=== PATIENT | female | born 1940 | race Caucasian/White ===

== ENCOUNTER 2018-02-22 11:38 | Outpatient (RCR) | payer MEDICARE, BC ==
[~2018-02-22 11:38] MED LIST: ASPIR 8181 MG PO; CREON DR 6,000 U1 EA PO; CRESTOR10 MG PO; DIOVAN80 MG PO; FUROSEMIDE40 MG PO; PLAVIX75 MG PO
== END 2018-02-28 ==
LOC: WCC 11:38
PROVIDERS: ATTEND Family Medicine Adult Medicine
DX: S81.801A Unspecified open wound, right lower leg, initial encounter (principal); R60.0 Localized edema; I87.2 Venous insufficiency (chronic) (peripheral); I73.89 Other specified peripheral vascular diseases; I50.9 Heart failure, unspecified; J43.9 Emphysema, unspecified; K86.89 Other specified diseases of pancreas; W54.8XXA Other contact with dog, initial encounter

== ENCOUNTER 2018-03-29 12:48 | Outpatient (RCR) | payer MEDICARE, BC ==
[~2018-03-29 12:48] MED LIST changes: +LIDOCAINE/PRILOCAINE 2.5-2.5% KIT ONE; +MINERAL OIL/PETROLAT/GLYCERI 6OZ BTL ONE
[2018-03-29] MEDS ORDERED: MINERAL OIL/PETROLAT/GLYCERI 6OZ BTL ONE (13:27)
[2018-03-29] MEDS ORDERED: LIDOCAINE/PRILOCAINE 2.5-2.5% KIT ONE (13:27)
== END 2018-03-30 ==
LOC: WCC 12:48
PROVIDERS: ATTEND Family Medicine Adult Medicine
DX: S81.801A Unspecified open wound, right lower leg, initial encounter (principal); I73.89 Other specified peripheral vascular diseases; I87.2 Venous insufficiency (chronic) (peripheral); R60.0 Localized edema; I50.9 Heart failure, unspecified; J43.9 Emphysema, unspecified; K86.89 Other specified diseases of pancreas; W54.8XXA Other contact with dog, initial encounter
CPT/HCPCS: 87071; 87075; 87205

== ENCOUNTER 2018-04-19 10:16 | Outpatient (RCR) | payer MEDICARE, BC ==
[~2018-04-19 10:16] MED LIST changes: -LIDOCAINE/PRILOCAINE 2.5-2.5% KIT ONE; -MINERAL OIL/PETROLAT/GLYCERI 6OZ BTL ONE
[2018-04-30] MEDS ORDERED: PREDNISONE20 MG PO (02:18)
[2018-04-30] MEDS ORDERED: PROAIR HFA INH8.5 GM INH (02:18)
[2018-04-30] MEDS ORDERED: BROMFED DM COU118 ML PO (02:18)
[2018-04-30] MEDS ORDERED: PEPCID20 MG PO (02:18)
== END 2018-04-30 ==
LOC: WCC 10:16
PROVIDERS: ATTEND Family Medicine Adult Medicine
DX: I87.2 Venous insufficiency (chronic) (peripheral) (principal); W54.8XXA Other contact with dog, initial encounter; I73.89 Other specified peripheral vascular diseases; I50.9 Heart failure, unspecified; J43.9 Emphysema, unspecified; K86.89 Other specified diseases of pancreas

== ENCOUNTER 2018-04-30 00:53 | Emergency (ER) | payer MEDICARE, BC ==
[~2018-04-30] VITALS: Ht 157.5 cm; Wt 43.5 kg
--- OUTSIDE RECORDS SUMMARY | 2018-04-30 00:56 | XMS REPORT | Clinical Summary ---
Author Author [facility] Organization [facility] Address Unknown Phone Unavailable Care Team Providers Care Document Preparation Specialist Name Role Phone Jaqueline Mata MD PCP Allergies Comments Active Allergy Reactions Severity Noted Date Ciprofloxacin Anaphylaxis High 06/29/2016 Codeine Swelling 06/29/2016 Penicillins Shortness Of High 06/29/2016 Breath Sulfa (Sulfonamide Anaphylaxis High 06/29/2016 Antibiotics) Medications End Date Status Medication Sig Dispensed Refills Start Date Active clopidogrel (PLAVIX) 75 0 mg tablet 6 Active CRESTOR 10 mg tablet 0 6 Active aspirin (ECOTRIN) 81 MG Take 81 mg by 0 enteric coated tablet mouth daily. Active carvedilol (COREG) 3.125 TK 1 T PO BID 6 MG tablet 7 Active sacubitril-valsartan Take 1 tablet 0 (ENTRESTO) 24-26 mg by mouth 2 tablet per tablet (two) times a day. Active traMADol-acetaminophen Take 1 tablet 0 (ULTRACET) 37.5-325 mg by mouth per tablet every 8 (eight) hours as needed for moderate pain. Active ondansetron ODT DIS 1 T PO Q 3 (ZOFRAN-ODT) 8 MG 8 H PRN N 7 disintegrating tablet 01/06/2018 capecitabine (XELODA) 500 Take 3 150 tablet 0 mg chemo tablet tablets in 7 the morning and 2 tablets every evening Monday thru Monday x 6 weeks. 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 03/19/2018 Encounters Care Team Description Date Type Specialty Conrado Cortes MD Malignant neoplasm of body of pancreas (HCC) (Primary Dx) 04/12/2018 Nurse Only Oncology Conrado Cortes MD Malignant neoplasm of pancreas, unspecified location of malignancy (HCC) 03/19/2018 Lab Lab Conrado Cortes MD Malignant neoplasm of body of pancreas (HCC) (Primary Dx); Renal mass 03/19/2018 Office Visit Oncology Que Hernández MD 03/19/2018 [facility] Radiation Oncology - Encounter 03/20/2018 Dyana Guerrero MA Malignant neoplasm of pancreas, unspecified location of malignancy (HCC) (Primary Dx) 03/19/2018 Orders Only Oncology Asha Lee PA-C Malignant neoplasm of body of pancreas (HCC) (Primary Dx) 03/19/2018 Orders Only Radiation Oncology Conrado Cortes MD Malignant neoplasm of body of pancreas (HCC) (Primary Dx) 03/16/2018 Nurse Only Oncology Que Hernández MD Malignant neoplasm of body of pancreas (HCC) 03/16/2018 Hospital Radiology Encounter Conrado Cortes MD Malignant neoplasm of body of pancreas (HCC) (Primary Dx) 02/08/2018 Nurse Only Oncology Zahraa Mishra RN 01/25/2018 Telephone Oncology Conrado Cortes MD Malignant neoplasm of body of pancreas (Primary Dx) 01/11/2018 Nurse Only Oncology Gabriella Matias RPH 01/10/2018 Orders Only Oncology Conrado Cortes MD 12/27/2017 Telephone Oncology Conrado Cortes MD 12/25/2017 Telephone Oncology Zahraa Mishra RN Malignant neoplasm of body of pancreas (Primary Dx) 12/15/2017 Telephone Oncology Conrado Cortes MD Malignant neoplasm of body of pancreas (Primary Dx) 12/11/2017 Nurse Only Oncology Conrado Cortes MD Malignant neoplasm of body of pancreas (Primary Dx) 10/30/2017 Nurse Only Oncology Conrado Cortes MD Malignant neoplasm of pancreas, unspecified location of malignancy 10/20/2017 Lab Lab Conrado Cortes MD Malignant neoplasm of body of pancreas (Primary Dx); Reactive depression 10/20/2017 Office Visit Oncology Dyana Guerrero MA Malignant neoplasm of pancreas, unspecified location of malignancy (Primary Dx) 10/20/2017 Orders Only Oncology Que Hernández MD 10/11/2017 Hospital Radiation Oncology Encounter Conrado Cortes MD Malignant neoplasm of pancreas, unspecified location of malignancy 10/02/2017 Hospital Radiology Encounter Conrado Cortes MD Malignant neoplasm of body of pancreas (Primary Dx) 10/02/2017 Nurse Only Oncology Conrado Cortes MD Malignant neoplasm of body of pancreas (Primary Dx); Malignant neoplasm of pancreas, unspecified location of malignancy 09/05/2017 Nurse Only Oncology Conrado Cortes MD 07/26/2017 Telephone Oncology Conrado Cortes MD Malignant neoplasm of pancreas, unspecified location of malignancy 07/25/2017 Lab Lab Conrado Cortes MD Malignant neoplasm of body of pancreas (Primary Dx) 07/25/2017 Office Visit Oncology Dyana Guerrero MA Malignant neoplasm of pancreas, unspecified location of malignancy (Primary Dx) 07/25/2017 Orders Only Oncology Conrado Cortes MD Malignant neoplasm of pancreas, unspecified location of malignancy 07/24/2017 Hospital Radiology Encounter Milton Cortes MD Heyne, Kirk Edward, MD 07/24/2017 Nurse Only Oncology Conrado Cortes MD 06/28/2017 Telephone Oncology Conrado Cortes MD Malignant neoplasm of body of pancreas (Primary Dx) 06/14/2017 Infusion Oncology Conrado Cortes MD Malignant neoplasm of body of pancreas (Primary Dx) 05/31/2017 Infusion Oncology Conrado Cortes MD Malignant neoplasm of body of pancreas (Primary Dx); Flu 05/24/2017 Office Visit Oncology Dyana Guerrero MA Malignant neoplasm of pancreas, unspecified location of malignancy (Primary Dx) 05/24/2017 Orders Only Oncology Adan Figueroa RN 05/22/2017 Telephone Oncology Conrado Cortes MD Malignant neoplasm of body of pancreas 05/16/2017 Orders Only Oncology Conrado Cortes MD Malignant neoplasm of body of pancreas (Primary Dx) 05/03/2017 Infusion Oncology Asha Lee PA-C Malignant neoplasm of body of pancreas (Primary Dx) 05/03/2017 Orders Only Radiation Oncology Adan Figueroa RN 05/03/2017 Telephone Oncology Que Hernández MD 05/01/2017 Hospital Radiation Oncology Encounter after 04/29/2017 Family History Medical History Relation Name Comments Heart disease Father Heart disease Mother Relation Name Status Comments Father Mother Social History Date Tobacco Use Types Packs/Day Years Used Former Smoker Cigarettes Smokeless Tobacco: Never Used Alcohol Use Drinks/Week oz/Week Comments Yes occ Sex Assigned at Date Recorded Not on file Industry Job Start Date Occupation Not on file Not on file Not on file Travel End Travel History Travel Start No recent travel history available. Last Filed Vital Signs Time Taken Vital Sign Reading 04/12/2018 10:26 AM [employer] Blood Pressure 91/54 04/12/2018 10:26 AM [employer] Pulse 84 04/12/2018 10:26 AM [employer] Temperature 36.1 C (96.9 F) 04/12/2018 10:26 AM [employer] Respiratory Rate 20 04/12/2018 10:26 AM [employer] Oxygen Saturation 93% - Inhaled Oxygen - Concentration 04/12/2018 10:26 AM [employer] Weight 44 kg (97 lb 0 oz) 04/12/2018 10:26 AM [employer] Height 157.5 cm (5' 2") 04/12/2018 10:26 AM [employer] Body Mass Index 17.74 Plan of Treatment Care Team Description Date Type Specialty Conrado Cortes MD [address] [address] [place], [place] [id number] 05/10/2018 Nurse Only Oncology Conrado Cortes MD [address] [facility] [address] [place] [address] [phone] 07/17/2018 Office Visit Oncology Health Maintenance Due Date Last Done Comments SHINGLES VACCINES (1 of 1988 2) PNEUMOCOCCAL 12/21/2003 POLYSACCHARIDE VACCINE AGE 65 AND OVER PNEUMOCOCCAL-13 12/21/2003 INFLUENZA VACCINE 11/29/2017 03/05/2007 Implants Device Identifier Shelf Expiration Date Model / Serial / Lot Implanted Type Area Manufactur er 08/29/2019 [id number] / / [id number] Port Imlpntbl Smart Port W/ Dtchd Implantabl N/A: N/A ANGIODYNAM 0.4ml 6.6fr 55cm 1.4x2.2mm - e Infusion [employer] [id number] Ports or Implanted: 10/17/2016 (Quantity not Accessorie on file) s Procedures Comments Procedure Name Priority Date/Time Associated Diagnosis ESTIMATED GFR STAT 03/19/2018 1:47 PM [employer] CARCINOEMBRYONIC ANTIGEN STAT 03/19/2018 Malignant neoplasm of (CEA) 1:47 PM [employer] pancreas, unspecified location of malignancy (HCC) CANCER ANTIGEN 19-9 STAT 03/19/2018 Malignant neoplasm of 1:47 PM [employer] pancreas, unspecified location of malignancy (HCC) COMPREHENSIVE METABOLIC STAT 03/19/2018 Malignant neoplasm of PANEL 1:47 PM [employer] pancreas, unspecified location of malignancy (HCC) HC COMPLETE BLD COUNT STAT 03/19/2018 Malignant neoplasm of W/AUTO DIFF 1:47 PM [employer] pancreas, unspecified location of malignancy (HCC) CT ABDOMEN WWO CONTRAST Routine 03/16/2018 Malignant neoplasm of PELVIS W CONTRAST 10:32 AM [employer] body of pancreas (HCC) ESTIMATED GFR Routine 03/16/2018 9:42 AM [employer] POC CREATININE Routine 03/16/2018 9:42 AM [employer] ZZESTIMATED GFR STAT 10/20/2017 12:45 PM CDT CANCER ANTIGEN 19-9 STAT 10/20/2017 Malignant neoplasm of 12:45 PM CDT pancreas, unspecified location of malignancy COMPREHENSIVE METABOLIC STAT 10/20/2017 Malignant neoplasm of PANEL 12:45 PM CDT pancreas, unspecified location of malignancy HC COMPLETE BLD COUNT STAT 10/20/2017 Malignant neoplasm of W/AUTO DIFF 12:45 PM CDT pancreas, unspecified location of malignancy CT ABDOMEN PELVIS W Routine 10/02/2017 Malignant neoplasm of CONTRAST 12:11 PM CDT pancreas, unspecified location of malignancy ESTIMATED GFR Routine 10/02/2017 10:59 AM CDT POC CREATININE Routine 10/02/2017 10:59 AM CDT ZZESTIMATED GFR STAT 07/25/2017 2:05 PM CDT COMPREHENSIVE METABOLIC STAT 07/25/2017 Malignant neoplasm of PANEL 2:05 PM CDT pancreas, unspecified location of malignancy HC COMPLETE BLD COUNT STAT 07/25/2017 Malignant neoplasm of W/AUTO DIFF 2:05 PM CDT pancreas, unspecified location of malignancy CT ABDOMEN PELVIS W STAT 07/24/2017 Malignant neoplasm of CONTRAST 11:52 AM CDT pancreas, unspecified location of malignancy ESTIMATED GFR Routine 07/24/2017 10:59 AM CDT POC CREATININE Routine 07/24/2017 10:59 AM CDT ZZESTIMATED GFR STAT 06/14/2017 8:18 AM [employer] MAGNESIUM LEVEL STAT 06/14/2017 Malignant neoplasm of 8:18 AM [employer] body of pancreas COMPREHENSIVE METABOLIC STAT 06/14/2017 Malignant neoplasm of PANEL 8:18 AM [employer] body of pancreas HC COMPLETE BLD COUNT STAT 06/14/2017 Malignant neoplasm of W/AUTO DIFF 8:18 AM [employer] body of pancreas POTASSIUM LEVEL Routine 05/31/2017 9:30 AM [employer] ALKALINE PHOSPHATASE Routine 05/31/2017 9:30 AM [employer] ALT (SGPT) Routine 05/31/2017 9:30 AM [employer] AST (SGOT) Routine 05/31/2017 9:30 AM [employer] ZZESTIMATED GFR STAT 05/31/2017 7:12 AM [employer] MAGNESIUM LEVEL STAT 05/31/2017 Malignant neoplasm of 7:12 AM [employer] body of pancreas COMPREHENSIVE METABOLIC STAT 05/31/2017 Malignant neoplasm of PANEL 7:12 AM [employer] body of pancreas HC COMPLETE BLD COUNT STAT 05/31/2017 Malignant neoplasm of W/AUTO DIFF 7:12 AM [employer] body of pancreas ZZESTIMATED GFR STAT 05/03/2017 8:14 AM [employer] MAGNESIUM LEVEL STAT 05/03/2017 Malignant neoplasm of 8:14 AM [employer] body of pancreas COMPREHENSIVE METABOLIC STAT 05/03/2017 Malignant neoplasm of PANEL 8:14 AM [employer] body of pancreas HC COMPLETE BLD COUNT STAT 05/03/2017 Malignant neoplasm of W/AUTO DIFF 8:14 AM [employer] body of pancreas after 04/29/2017 Results * Estimated GFR (03/19/2018 1:47 PM [employer]) Only the most recent of 4 results within the time period is included. Estimated GFR 85 mL/min/1.73 m2 [facility] Comment: HOSPITAL CatergoryUnitsInte rpretation G1 >=90 Normal or high G2 60-89Mildly decreased Y5h86-65 Mildly to moderately decreased Y5m60-48 Moderately to severely decreased G4 15-29Severely decreased G5 <15Kidney failure The eGFR was calculated using the Chronic Kidney Disease Epidemiology Collaboration (CKD-EPI) equation. Interpretation is based on recommendations of the National Kidney Foundation-Kidney Disease Outcomes Quality Initiative (NKF-KDOQI) published in 2014. Specimen Plasma specimen Performing Organization Address City/[facility]/Zipcode Phone Number [facility] [place] [address] PATHOLOGY AND GENOMIC MEDICINE [address] * Cancer antigen 19-9 (03/19/2018 1:47 PM [employer]EL[employer]) Only the most recent of 2 results within the time period is included. CA 19-9 25 0 - 35 U/mL [facility] Comment: HOSPITAL The [employer] 8000 CA19-9 immunoassay was used. Results obtained with different assay methods or kits should not be used interchangeably and may be different. Specimen Plasma specimen Performing Organization Address City/[facility] Phone Number [facility] [place] [address] PATHOLOGY AND GENOMIC MEDICINE [address] * CBC with platelet and differential (03/19/2018 1:47 PM [employer]EL[employer]) Only the most recent of 6 results within the time period is included. WBC 6.49 4.50 - 11.00 k/uL [facility] RBC 4.12 (L) 4.20 - 5.50 m/uL [facility] HGB 13.0 12.0 - 16.0 g/dL [facility] HCT 40.8 37.0 - 47.0 % [facility] MCV 99.0 82.0 - 100.0 fL [facility] MCH 31.6 27.0 - 34.0 pg [facility] MCHC 31.9 31.0 - 37.0 g/dL [facility] RDW - SD 54.5 37.0 - 55.0 fL [facility] MPV 10.6 8.8 - 13.2 fL [facility] Platelet count 197 150 - 400 k/uL [facility] Nucleated RBC 0.00 /100 WBC [facility] Neutrophils 66.2 39.0 - 69.0 % [facility] Lymphocytes 21.9 (L) 25.0 - 45.0 % [facility] Monocytes 9.4 0.0 - 10.0 % [facility] Eosinophils 1.7 0.0 - 5.0 % [facility] Basophils 0.3 0.0 - 1.0 % [facility] Immature granulocytes 0.5Comment: "Immature 0.0 - 1.0 % [facility] granulocytes" (promyelocytes, HOSPITAL myelocytes, metamyelocytes) Specimen Blood Performing Organization Address City/[facility] Phone Number [facility] DEPARTMENT OF [address] [place] [address] PATHOLOGY AND GENOMIC MEDICINE [address] * Carcinoembryonic antigen (CEA) (03/19/2018 1:47 PM [employer]) CEA 3.0 0.0 - 3.8 ng/mL [facility] Comment: HOSPITAL Reference range for heavy smokers:0.0 - 5.5 ng/mL The [employer] 8000 CEA immunoassay was used. Results obtained with different assay methods or kits should not be used interchangeably and may be different. Specimen Serum Performing Organization Address [facility] [place] [address] PATHOLOGY AND GENOMIC MEDICINE [address] * Comprehensive metabolic panel (03/19/2018 1:47 PM [employer]) Only the most recent of 6 results within the time period is included. Sodium 145 135 - 148 mEq/L [facility] Potassium 4.3 3.5 - 5.0 mEq/L [facility] Chloride 109 98 - 112 mEq/L [facility] CO2 24 24 - 31 mEq/L [facility] Anion gap 12@ANIO 7 - 15 mEq/L [facility] BUN 21 8 - 23 mg/dL [facility] Creatinine 0.63 0.50 - 0.90 mg/dL [facility] Glucose 213 (H) 65 - 99 mg/dL [facility] Calcium 10.0 8.8 - 10.2 mg/dL [facility] Protein 6.4 6.3 - 8.3 g/dL [facility] Comment: HOSPITAL 4.6-7.0 g/dL 1 week 4.4-7.6 g/dL 7 months-1year 5.1-7.3 g/dL 1-2 years5.6-7 .5 g/dL >3 years6.0-8 .0 g/dL 18-150 6.3-8.3 g/dL Albumin 3.3 (L) 3.5 - 5.0 g/dL [facility] A/G ratio 1.1 0.7 - 3.8 [facility] Alkaline phosphatase 163 (H) 35 - 104 U/L [facility] AST 50 (H) 10 - 35 U/L [facility] ALT 40 5 - 50 U/L [facility] Total bilirubin 0.4 0.0 - 1.2 mg/dL [facility] Specimen Plasma specimen Performing Organization Address City/State/Zipcode Phone Number [facility] DEPARTMENT OF [address] [place] [address] PATHOLOGY AND GENOMIC MEDICINE [address] * CT Abdomen WWO Contrast, Pelvis W Contrast (03/16/2018 10:32 AM [employer]ELOPER) Narrative Performed At EXAMINATION:CT ABDOMEN WWO CONTRAST PELVIS W CONTRAST [facility] CLINICAL HISTORY:C25.1 Malignant neoplasm of body of pancreas, Pancreatic cancer S/P radiation and chemo TECHNIQUE: Noncontrast images of the abdomen were obtained. Subsequently, axial images of the abdomen and pelvis were obtained following intravenous administration of iodinated contrast. Sagittal and coronal computerized reformatted images were also obtained.CT imaging was performed with iterative reconstruction technique and/or automated exposure control to reduce radiation dose. COMPARISON:10/02/2017 FINDINGS: Abdomen: Bilateral lower lung emphysema is seen. There is a small hiatal hernia. There is cholelithiasis. The spleen is unremarkable. Adrenal glands are within normal limits. Small bilateral renal cysts are seen. The largest in the right kidney is 14 mm. The largest in the left kidney is 13 mm. There is also a 7 mm lesion in the left kidney. It is hyperdense on precontrast images but does appear to demonstrate at least 20 Hounsfield units increase on postcontrast imaging and may therefore be renal neoplasm. This may be better assessed with MRI. Alternatively, if no intervention is planned, recommend short-term follow-up. 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 A 5.3 x 2.8 cm water attenuation structure is seen in the region of the pancreatic tail which is unchanged. Just adjacent to this is heterogeneous enhancing mass-like density which is unchanged measuring 1.9 x 2.2 cm. A small water attenuation structure anterior to the pancreatic body is 15 mm and unchanged. Splenic vein is occluded. Pelvis: Bilateral common and external iliac stents are present. 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 Sigmoid diverticula are present. The bones are osteopenic. IMPRESSION: Emphysema. Small hiatal hernia. Cholelithiasis. Possible left renal neoplasm. MRI may better assess. If no intervention is planned, suggest CT follow-up to evaluate for stability. Stable pancreatic body mass. Splenic vein occlusion persisting. Peripancreatic cystic change is stable. Left pelvic varices. [facility]-[id number] Procedure Note [facility], Radiology Results Incoming - 03/16/2018 4:05 PM [employer] EXAMINATION: CT ABDOMEN WWO CONTRAST PELVIS W CONTRAST CLINICAL HISTORY: C25.1 Malignant neoplasm of body of pancreas, Pancreatic cancer S/P radiation and chemo TECHNIQUE: Noncontrast images of the abdomen were obtained. Subsequently, axial images of the abdomen and pelvis were obtained following intravenous administration of iodinated contrast. Sagittal and coronal computerized reformatted images were also obtained.CT imaging was performed with iterative reconstruction technique and/or automated exposure control to reduce radiation dose. COMPARISON: 10/02/2017 FINDINGS: Abdomen: Bilateral lower lung emphysema is seen. There is a small hiatal hernia. There is cholelithiasis. The spleen is unremarkable. Adrenal glands are within normal limits. Small bilateral renal cysts are seen. The largest in the right kidney is 14 mm. The largest in the left kidney is 13 mm. There is also a 7 mm lesion in the left kidney. It is hyperdense on precontrast images but does appear to demonstrate at least 20 Hounsfield units increase on postcontrast imaging and may therefore be renal neoplasm. This may be better assessed with MRI. Alternatively, if no intervention is planned, recommend short-term follow-up. 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 A 5.3 x 2.8 cm water attenuation structure is seen in the region of the pancreatic tail which is unchanged. Just adjacent to this is heterogeneous enhancing mass-like density which is unchanged measuring 1.9 x 2.2 cm. A small water attenuation structure anterior to the pancreatic body is 15 mm and unchanged. Splenic vein is occluded. Pelvis: Bilateral common and external iliac stents are present. 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 Sigmoid diverticula are present. The bones are osteopenic. IMPRESSION: Emphysema. Small hiatal hernia. Cholelithiasis. Possible left renal neoplasm. MRI may better assess. If no intervention is planned, suggest CT follow-up to evaluate for stability. Stable pancreatic body mass. Splenic vein occlusion persisting. Peripancreatic cystic change is stable. Left pelvic varices. [facility]-[id number] Performing Organization Address City/[facility]/[place]code [place] [address] * POC creatinine (03/16/2018 9:42 AM [employer]ELOPER) Only the most recent of 3 results within the time period is included. POC creatinine 0.5 0.5 - 0.9 mg/dl [facility] Comment: HOSPITAL Meter ID: [id number] Tube Buffer: Demarco Sherman Specimen Blood Performing Organization Address [facility] [place] [address] PATHOLOGY [place] [address] HOSPITAL * Estimated GFR (10/20/2017 12:45 PM CDT) Only the most recent of 5 results within the time period is included. GFR Non Af Amer 69 mL/min/1.73 m2 [facility] DEPARTMENT OF PATHOLOGY AND GENOMIC MEDICINE GFR Af Amer 84 mL/min/1.73 m2 [facility] DEPARTMENT OF Comment: PATHOLOGY AND Chronic kidney disease: <60 GENOMIC MEDICINE mL/min/1.73m2 Kidney failure: <15 mL/min/1.73m2 The estimated GFR is calculated from the IDMS-traceable Modification of Diet in Renal Disease Equation. The accuracy of the calculation is poor when the creatinine is normal. Calculated values >90 mL/min/1.73m2 are not reported. This equation has not been validated in children (<18 years), women, the elderly (>70 years), or ethnic groups other than Caucasians and Americans. Specimen Plasma specimen Performing Organization Address [facility] Phone Number [facility] [place] [address] PATHOLOGY AND GENOMIC MEDICINE * CT Abdomen Pelvis W Contrast (10/02/2017 12:11 PM CDT) Only the most recent of 2 results within the time period is included. Narrative Performed At CT ABDOMEN PELVIS W CONTRAST [facility] CLINICAL INDICATION: C25.9 Malignant neoplasm of pancreasunspecified, pancreatic cancer TECHNIQUE:Multidetector CT imaging of the abdomen and pelvis was performed following the intravenous administration of iodinated contrast with automated exposure control and/or iterative reconstruction techniques to radiation dose. COMPARISON:07/24/2017 FINDINGS: LUNG BASES:Moderate emphysema is noted at the lung bases with basilar atelectasis and Bochdalek hernia. LIVER:Liver is homogeneous without mass or change BILIARY:Normal. SPLEEN:Normal. PANCREAS:Pancreatic head and neck are stable with 2 pseudocysts again noted with stable 1.4 x 1.8 cm cyst anterior to the body and a 2.8 x 5.7 cm pseudocyst without nodularity or thickening involving the body tail region, this finding diminished from 3.0 x 7.6 cm on prior. There is a stable area of heterogeneous lower attenuation in the pancreatic body about 1.4 x 1.7 cm unchanged with slight dilatation of the upstream pancreatic duct concerning for underlying neoplasm given prior PET positivity. There is again soft tissue that encircles the common hepatic artery by about 75%. [facility] mesenteric artery and vein are unremarkable. ADRENALS:Normal KIDNEYS:Too small to characterize probable cysts noted in the kidneys are without suspicious mass or enhancement. GI:Large and small bowel are normal in caliber.Sigmoid diverticula are present without diverticulitis. VASCULAR:Atherosclerosis of the aorta is present. IVC portal veins are patent noting soft tissue about the common hepatic artery as before. LYMPH NODES:No enlarged lymph nodes in the abdomen or pelvis. PELVIS:No lymphadenopathy or abnormal fluid collection. BONES:Mild degenerative changes and scoliosis. OTHER:There is no ascites. IMPRESSION: Stable CT of the pancreas noting 1.4 x 1.7 cm hypoattenuating area with ductal dilatation concerning for neoplasm given prior PET/CT avidity. No interval change or findings for metastatic disease. Thank you for allowing us to participate in the care of your patient. [facility]-[id number] Procedure Note Interface, Radiology Results - 10/02/2017 12:[address] ABDOMEN PELVIS W CONTRAST CLINICAL INDICATION: C25.9 Malignant neoplasm of pancreas unspecified, pancreatic cancer TECHNIQUE: Multidetector CT imaging of the abdomen and pelvis was performed following the intravenous administration of iodinated contrast with automated exposure control and/or iterative reconstruction techniques to radiation dose. COMPARISON: 07/24/2017 FINDINGS: LUNG BASES: Moderate emphysema is noted at the lung bases with basilar atelectasis and Bochdalek hernia. LIVER: Liver is homogeneous without mass or change BILIARY: Normal. SPLEEN: Normal. PANCREAS: Pancreatic head and neck are stable with 2 pseudocysts again noted with stable 1.4 x 1.8 cm cyst anterior to the body and a 2.8 x 5.7 cm pseudocyst without nodularity or thickening involving the body tail region, this finding diminished from 3.0 x 7.6 cm on prior. There is a stable area of heterogeneous lower attenuation in the pancreatic body about 1.4 x 1.7 cm unchanged with slight dilatation of the upstream pancreatic duct concerning for underlying neoplasm given prior PET positivity. There is again soft tissue that encircles the common hepatic artery by about 75%. Superior mesenteric artery and vein are unremarkable. ADRENALS: Normal KIDNEYS: Too small to characterize probable cysts noted in the kidneys are without suspicious mass or enhancement. GI: Large and small bowel are normal in caliber. Sigmoid diverticula are present without diverticulitis. VASCULAR: Atherosclerosis of the aorta is present. IVC portal veins are patent noting soft tissue about the common hepatic artery as before. LYMPH NODES: No enlarged lymph nodes in the abdomen or pelvis. PELVIS: No lymphadenopathy or abnormal fluid collection. BONES: Mild degenerative changes and scoliosis. OTHER: There is no ascites. IMPRESSION: Stable CT of the pancreas noting 1.4 x 1.7 cm hypoattenuating area with ductal dilatation concerning for neoplasm given prior PET/CT avidity. No interval change or findings for metastatic disease. Thank you for allowing us to participate in the care of your patient. [facility]-[id number] Performing Organization Address City/[facility]/Zipcode Phone Number [facility] [address] [place] [address] * Magnesium level (06/14/2017 8:18 AM JAVA GROOVY DEVELOPER) Only the most recent of 3 results within the time period is included. Magnesium 2.1 1.6 - 2.4 mg/dL [facility] DEPARTMENT OF PATHOLOGY AND GENOMIC MEDICINE Specimen Plasma specimen Performing Organization Address City/[facility] Phone [facility] [address] [address] PATHOLOGY AND GENOMIC MEDICINE * ALT (SGPT) (05/31/2017 9:30 AM JAVA GROOVY DEVELOPER) ALT SEE COMMENTComment: 5 - 50 U/L [facility] DEPARTMENT OF Footnote--------- PATHOLOGY AND GENOMIC MEDICINE Specimen Plasma specimen Performing Organization Address [facility] Phone Number [facility] [place] [address] PATHOLOGY AND GENOMIC MEDICINE * AST (SGOT) (05/31/2017 9:30 AM JAVA GROOVY DEVELOPER) AST SEE COMMENTComment: 10 - 35 U/L [facility] DEPARTMENT OF Footnote--------- PATHOLOGY AND GENOMIC MEDICINE Specimen Plasma specimen Performing Organization Address [facility] Phone Number [facility] [place] [address] PATHOLOGY AND GENOMIC MEDICINE * Potassium level (05/31/2017 9:30 AM JAVA GROOVY DEVELOPER) Potassium SEE COMMENT 3.5 - 5.0 mEq/L [facility] DEPARTMENT OF Comment: PATHOLOGY AND Footnote--------- GENOMIC MEDICINE UNABLE TO REPORT DUE TO SPECIMEN HEMOLYSIS. Specimen Plasma specimen Performing Organization Address [facility] Phone Number [facility] [place] [address] PATHOLOGY AND GENOMIC MEDICINE * Alkaline phosphatase (05/31/2017 9:30 AM JAVA GROOVY DEVELOPER) Alkaline phosphatase SEE COMMENTComment: 35 - 104 U/L [facility] DEPARTMENT OF Footnote--------- PATHOLOGY AND GENOMIC MEDICINE Specimen Plasma specimen Performing Organization Address [facility] [place] Phone Number [facility] [place] [address] PATHOLOGY AND GENOMIC MEDICINE after 04/29/2017 Insurance Payer Benefit Subscriber ID Type Phone Address Plan / Group MEDICARE MEDICARE xxxxxxxxxxx Medicare [place], [place] PART A AND B BCBS BCBS xxxxxxxxxxxx PPO CHOICE PPO/[employer]ETSY [employer] PPO Advance Directives For more information, please contact: Shin Deal [address] [place] [address] Date Inactivated Comments Code Status Date Activated 09/25/2016 6:35 PM Full Code 09/23/2016 2:29 PM Code Status decision reached by: Patient
[2018-04-30] MEDS ORDERED: ALBUTEROL/IPRATROPIUM 3 ML NEB INH ONE (02:00)
[2018-04-30] MEDS ORDERED: PEPCID20 MG PO (02:18)
[2018-04-30] MEDS ORDERED: BROMFED DM COU118 ML PO (02:18)
[2018-04-30] MEDS ORDERED: PREDNISONE20 MG PO (02:18)
[2018-04-30] MEDS ORDERED: PROAIR HFA INH8.5 GM INH (02:18)
== END 2018-04-30 02:31 | disposition home or self-care (01) ==
LOC: FSED 00:53
DX: R05 Cough (principal); H92.03 Otalgia, bilateral; J44.1 Chronic obstructive pulmonary disease with (acute) exacerbation; B34.9 Viral infection, unspecified; J20.9 Acute bronchitis, unspecified
CPT/HCPCS: 87400; 99283

== ENCOUNTER 2019-06-29 15:58 | Emergency (ER) | payer MEDICARE, BC ==
[~2019-06-29] VITALS: Ht 157.5 cm; Wt 38.6 kg
[~2019-06-29 15:58] MED LIST changes: +BROMFED DM COU118 ML PO; +LEVAQUIN500 MG PO; +PEPCID20 MG PO; +PREDNISONE20 MG PO; +PROAIR HFA INH8.5 GM INH
--- OUTSIDE RECORDS SUMMARY | 2019-06-29 16:00 | XMS REPORT ---
Author Author [facility] Address Unknown Phone Unavailable Care Team Providers Care Mixing Picker Tender Name Role Phone Praneeth ROSAS Unavailable Unavailable Problems This patient has no known problems. Allergies, Adverse Reactions, Alerts This patient has no known allergies or adverse reactions. Medications This patient has no known medications. Results Test Description Test Time Test Comments Text Results Atomic Results Result Comments CXR 2 VIEW - HOPD 2019-05-06 19:44:[address] [address] Patient Name: LUNA PARDO MR #: [id number] : 1940 Age/Sex: 78/F Req #: [id number] Adm Physician: Ordered by: JORDY ROSAS MD Report #: [id number] [facility] Room/Bed: Procedure: [id number] HOPD/CXR 2 VIEW - HOPD Exam Date: 05/06/19 Exam Time: 1919 REPORT STATUS: Signed EXAMINATION: CXR 2 VIEW - HOPD INDICATION: Cough and congestion. [id number] COMPARISON: None available. FINDINGS: PA and lateral views TUBES and LINES: Right chest wall port in place. Tip projecting over inferior SVC. LUNGS: Hyperinflated lungs. Mild bibasilar haziness. PLEURA: No pneumothorax. Small bilateral pleural effusions. HEART AND MEDIASTINUM: The cardiomediastinal silhouette is unremarkable. BONES AND SOFT TISSUES: No acute osseous lesion. Soft tissues are unremarkable. UPPER ABDOMEN: No free air under the diaphragm. IMPRESSION: Small bilateral pleural effusions with mild adjacent subsegmental atelectasis. Underlying/developing pneumonia cannot be excluded. Signed by: Dr. Bernardino Maldonado MD on 05/06/2019 7:46 PM Dictated By: BERNARDINO MALDONADO MD 43 Transcribed By: BRETT on 05/06/191945 COPY TO: JORDY ROSAS MD
[2019-06-29] MEDS ORDERED: SODIUM CHLORIDE 0.9% 1000ML 1,000 ML ONE (16:22)
[2019-06-29] MEDS ORDERED: DIPHENHYDRAMINE HCL INJ 50 MG/ML VIAL IV ONE (16:45)
[2019-06-29] MEDS ORDERED: METOCLOPRAMIDE HCL 10 MG/2ML VIAL IV ONE (16:45)
[2019-06-29] MEDS ORDERED: SODIUM CHLORIDE 0.9% 500ML 500 ML IV ONE (18:00)
[2019-06-29] MEDS ORDERED: SODIUM CHLORIDE 0.9% 500ML 500 ML ONE (18:00)
[2019-06-29] MEDS ORDERED: TRAMADOL HCL 50 MG TAB ONE (18:19)
[2019-06-29] MEDS ORDERED: REGLAN10 MG PO (18:30)
[2019-06-29] MEDS ORDERED: TRAMADOL HCL 50 MG TAB PO ONE (18:30)
== END 2019-06-29 18:39 | disposition home or self-care (01) ==
LOC: FSED 15:58
DX: R11.2 Nausea with vomiting, unspecified (principal); K52.9 Noninfective gastroenteritis and colitis, unspecified; E86.0 Dehydration; I10 Essential (primary) hypertension; I51.9 Heart disease, unspecified; J98.4 Other disorders of lung; Z85.07 Personal history of malignant neoplasm of pancreas
CPT/HCPCS: 80048; 80076; 81003; 82553; 84484; 85025; 93005; 99284; J1200; J2765; J7030; J7040

== ENCOUNTER 2019-07-03 10:39 | Emergency (ER) | payer MEDICARE, BC ==
[~2019-07-03] VITALS: Ht 157.5 cm; Wt 38.6 kg
[~2019-07-03 10:39] MED LIST changes: +REGLAN10 MG PO
[2019-07-03] MEDS ORDERED: SODIUM CHLORIDE 0.9% 1000ML 1,000 ML IV SCH (11:30)
[2019-07-03] MEDS ORDERED: PROMETHAZINE 25MG/ NS 50ML (IV) IV ONE (11:30)
[2019-07-03] MEDS ORDERED: SODIUM CHLORIDE 0.9% 500ML 500 ML IV ONE ×2 (11:30→13:30)
[2019-07-03] MEDS ORDERED: MORPHINE SULFATE 5 MG/ML VIAL IV ONE (11:30)
[2019-07-03] MEDS ORDERED: PROMETHAZINE HCL (IM) 25 MG/ML VIAL ONE (11:45)
[2019-07-03] MEDS ORDERED: MORPHINE SULFATE INJ 4 MG/ML INJ 1ML ONE (11:46)
[2019-07-03] MEDS ORDERED: SODIUM CHLORIDE 0.9% 500ML 500 ML ONE ×2 (11:46→13:21)
--- NOTE | 2019-07-03 11:50 | NUR ---
25 MG PHENERGAN DILUTED IN 500ML NS
--- NOTE | 2019-07-03 12:39 | NUR ---
WHITE COUNT 1.1, MASK PLACED ON PT.
[2019-07-03 15:57] VITALS: BP 110/62
== END 2019-07-03 14:46 | disposition home or self-care (01) ==
LOC: FSED 10:39
DX: R10.84 Generalized abdominal pain (principal); R11.2 Nausea with vomiting, unspecified; E86.0 Dehydration; C25.9 Malignant neoplasm of pancreas, unspecified
CPT/HCPCS: 80053; 81003; 82553; 84484; 85025; 87086; 99283; J2270; J2550; J7030; J7040

== ENCOUNTER 2019-07-05 20:50 | Emergency (ER) | payer MEDICARE, BC ==
[~2019-07-05] VITALS: Ht 157.5 cm; Wt 38.6 kg
--- NOTE | 2019-07-05 20:55 | NUR ---
pt refused to get in gown, stated she wanted to stay in her clothes. pt also stated she does not want to be admitted into the hospital.
[2019-07-05] MEDS ORDERED: ONDANSETRON HCL INJ 2MG/ML 2ML 2 MG/ML VIAL IV STA (21:35)
[2019-07-05] MEDS ORDERED: SODIUM CHLORIDE 0.9% 1000ML 1,000 ML IV STA ×2 (21:37→23:07)
[2019-07-05] MEDS ORDERED: MORPHINE SULFATE INJ 4 MG/ML INJ 1ML IV ONE (21:45)
[2019-07-05] MEDS ORDERED: ONDANSETRON HCL INJ 2MG/ML 2ML 2 MG/ML VIAL ONE (22:07)
[2019-07-05] MEDS ORDERED: SODIUM CHLORIDE 0.9% 1000ML 1,000 ML ONE ×2 (22:08→23:14)
[2019-07-05] MEDS ORDERED: MORPHINE SULFATE INJ 4 MG/ML INJ 1ML ONE (22:08)
[2019-07-05] MEDS ORDERED: LEVSIN0.125 MG SL (23:38)
[2019-07-05 23:48] VITALS: BP 84/43
--- NOTE | 2019-07-06 00:10 | NUR ---
INFORMED MD OF PT'S CHANGE IN V/S. MD IN TO RE-EVAL. PT..
--- NOTE | 2019-07-06 00:35 | NUR ---
After multi checks for Blood pressure it is consistant at 84/43 hr 71 and spo2 93%. pt refusing to be admitted, states she does not want to be in hospital. Family at bedside. Patient and Family given risk factors of going home with low blood pressure and signed out AMA, Pt and Daughter stated if patient gets worse that they would call a ambulance. Pt is alert and oriented to surroundings, Pt is alot more verbal and alert after recieving 2 litters of NS in ER.
== END 2019-07-06 00:43 | disposition home or self-care (01) ==
LOC: FSED 20:50
DX: R11.2 Nausea with vomiting, unspecified (principal); R53.1 Weakness; I10 Essential (primary) hypertension; E78.5 Hyperlipidemia, unspecified; J44.9 Chronic obstructive pulmonary disease, unspecified; I25.10 Atherosclerotic heart disease of native coronary artery without angina pectoris; I25.2 Old myocardial infarction; Z85.07 Personal history of malignant neoplasm of pancreas; Z95.5 Presence of coronary angioplasty implant and graft
CPT/HCPCS: 80053; 80076; 81003; 85025; 99283; J2270; J2405; J7030

== ENCOUNTER 2019-09-21 19:10 | Inpatient (IN) | payer MEDICARE, OTHER ==
[~2019-09-21] VITALS: Ht 157.5 cm; Wt 36.3 kg
[~2019-09-21 19:10] MED LIST changes: +LEVSIN0.125 MG SL
--- OUTSIDE RECORDS SUMMARY | 2019-09-21 19:13 | XMS REPORT | Clinical Summary ---
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 Active CRESTOR 10 mg tablet Take 10 mg by 0 mouth 6 nightly. Active aspirin (ECOTRIN) 81 MG Take 81 mg by 0 enteric coated tablet mouth nightly. Active acetaminophen (TYLENOL) Take 500 mg 0 500 MG tablet by mouth every 6 (six) hours as needed for mild pain. Active PROAIR HFA 90 Inhale 2 3 mcg/actuation inhaler puffs 6 (six) 9 times a day as needed for shortness of breath. Active hyoscyamine (LEVSIN) Take 0.125 mg 0 0.125 mg tablet by mouth every 4 (four) hours as needed for cramping. 08/14/2020 Active pantoprazole (Protonix) Take 1 tablet 90 tablet 3 40 MG EC tablet (40 mg total) 0 by mouth daily. 08/21/2020 Active potassium chloride Take 1 tablet 180 tablet 3 08/21 (KLOR-CON) 10 MEQ CR (10 mEq 0 tablet total) by mouth 2 (two) times a day. 09/01/2020 Active pancrelipase, Take 2 180 capsule 11 lsrbtk-kttsgtfv-dsowkqe, capsules by 0 (CREON) 6,000-19,000 mouth 3 -30,000 unit (three) times capsule,delayed a day with release(DR/EC) capsule meals. Active OLANZapine (ZYPREXA) 2.5 TAKE 1 4 tablet 0 0 MG tablet TABLET(2.5 0 MG) BY MOUTH EVERY NIGHT FOR UP TO 4 DAYS NEEDED FOR NAUSEA 10/22/2019 Active HYDROcodone-acetaminophen Take 1 tablet 100 tablet 0 (Thornton) 10-325 mg per by mouth 0 tabletIndications: every 4 chronic pain, pain (four) hours as needed for moderate pain for up to 100 doses .chronic pain, pain. Max Daily Amount: 6 tablets 07/12/2019 Discontinued (Stop Taking at Discharge) carvedilol (COREG) 3.125 Take 3.125 mg 6 09/05 MG tablet by mouth 7 every other day. 07/12/2019 Discontinued (Stop Taking at Discharge) sacubitril-valsartan Take 1 tablet 0 (ENTRESTO) 24-26 mg by mouth tablet per tablet every other day. 02/08/2019 Discontinued traMADol-acetaminophen Take 1 tablet 0 (ULTRACET) 37.5-325 mg by mouth per tablet every 8 (eight) hours as needed for moderate pain. 05/27/2019 Discontinued (Reorder) ondansetron ODT DIS 1 T PO Q 3 (ZOFRAN-ODT) 8 MG 8 H PRN N 7 disintegrating tablet 03/17/2019 traMADol (ULTRAM) 50 mg Take 2 30 tablet 0 tabletIndications: tablets (100 9 chronic pain mg total) by mouth every 8 (eight) hours as needed for moderate pain for up to 30 days .chronic pain. 03/25/2019 Discontinued (Therapy comple justin) HYDROcodone-acetaminophen Take 15 mL by 450 mL 0 (HYCET) 2.5-108.3 mg/5 mL mouth every 4 9 solutionIndications: (four) hours chronic pain as needed for moderate pain for up to 30 doses .chronic pain. Max Daily Amount: 90 mL 05/17/2019 hyoscyamine (LEVSIN/SL) Take 1 tablet 20 tablet 3 0.125 mg SL tablet (0.125 mg 9 total) by mouth every 4 (four) hours as needed for cramping (irritable bowel) for up to 30 days. 05/18/2019 diphenoxylate-atropine Take 1 tablet 10 tablet 0 1 (LOMOTIL) 2.5-0.025 mg by mouth 4 9 per tablet (four) times a day as needed for diarrhea for up to 10 doses. 04/19/2019 Discontinued (Reorder) HYDROcodone-acetaminophen Take 1 tablet 30 tablet 0 (NORCO) 5-325 mg per by mouth 9 tabletIndications: every 6 (six) chronic pain hours as needed for moderate pain for up to 30 days .chronic pain. Max Daily Amount: 4 tablets 04/19/2019 Discontinued (Reorder) HYDROcodone-acetaminophen Take 1 tablet 30 tablet 0 (NORCO) 5-325 mg per by mouth 9 tabletIndications: every 6 (six) chronic pain hours as needed for moderate pain for up to 30 days .chronic pain. Max Daily Amount: 4 tablets 04/19/2019 Discontinued HYDROcodone-acetaminophen Take 1 tablet 30 tablet 0 (NORCO) 5-325 mg per by mouth 9 tabletIndications: every 4 chronic pain (four) hours as needed for moderate pain for up to 30 days .chronic pain. Max Daily Amount: 6 tablets 05/19/2019 HYDROcodone-acetaminophen Take 1 tablet 30 tablet 0 (XODOL) 5-300 mg per by mouth 9 tabletIndications: acute every 6 (six) pain hours as needed for moderate pain for up to 30 days .acute pain. Max Daily Amount: 4 tablets 05/24/2019 Discontinued (Reorder) traMADol (ULTRAM) 50 mg Take 1 tablet 40 tablet 0 tabletIndications: (50 mg total) 0 chronic pain by mouth every 6 (six) hours as needed for moderate pain for up to 30 days .chronic pain. 05/24/2019 Discontinued (Reorder) traMADol (ULTRAM) 50 mg Take 1 tablet 40 tablet 0 tabletIndications: (50 mg total) 0 chronic pain by mouth every 6 (six) hours as needed for moderate pain for up to 30 days .chronic pain. 05/31/2019 Discontinued (Med List Clean up) traMADol (ULTRAM) 50 mg Take 1 tablet 40 tablet 0 tabletIndications: (50 mg total) 0 chronic pain by mouth every 6 (six) hours as needed for moderate pain for up to 30 days .chronic pain. 05/31/2019 Discontinued (Med List Clean up) ondansetron ODT DIS 1 T PO Q 30 tablet 3 (ZOFRAN-ODT) 8 MG 8 H PRN N 0 disintegrating tablet 05/31/2019 Discontinued (Med List Clean up) pancrelipase, Take 1 90 capsule 1 vacfqu-tjwrefai-uoyjkhj, capsule by 0 (CREON) 24,000-76,000 mouth 3 -120,000 unit (three) times capsule,delayed a day with release(DR/EC) capsule meals. 05/31/2019 Discontinued (Med List Clean up) SYMBICORT 160-4.5 Inhale 2 6 mcg/actuation inhaler puffs 2 (two) 9 times a day. 06/13/2019 Discontinued ondansetron ODT Take 8 mg by 0 (ZOFRAN-ODT) 8 MG mouth every 8 disintegrating tablet (eight) hours as needed for nausea or vomiting. 06/13/2019 HYDROcodone-acetaminophen Take 1 tablet 20 tablet 0 (NORCO) 7.5-325 mg per by mouth 0 tabletIndications: acute every 4 pain (four) hours as needed for moderate pain for up to 5 days .acute pain. Max Daily Amount: 6 tablets 07/12/2019 Discontinued (Stop Taking at Discharge) methocarbamol (ROBAXIN) Take 1 tablet 90 tablet 0 500 MG tablet (500 mg 0 total) by mouth 3 (three) times a day for 30 days. 06/13/2019 traMADol (ULTRAM) 50 mg Take 1 tablet 15 tablet 0 tabletIndications: acute (50 mg total) 0 pain by mouth every 8 (eight) hours as needed for moderate pain for up to 5 days .acute pain. 07/13/2019 docusate sodium (COLACE) Take 1 60 capsule 0 0 100 MG capsule capsule (100 0 mg total) by mouth 2 (two) times a day for 30 days. 06/23/2019 ondansetron ODT Take 1 tablet 30 tablet 0 06/13/19 2 (ZOFRAN-ODT) 4 MG (4 mg total) 0 disintegrating tablet by mouth every 8 (eight) hours as needed for nausea or vomiting for up to 10 days. 07/13/2019 simethicone (MYLICON) 80 Chew 1 tablet 120 tablet 0 MG chewable tablet (80 mg total) 0 every 6 (six) hours as needed for flatulence for up to 30 days. 07/17/2019 traMADol (ULTRAM) 50 mg Take 1 tablet 90 tablet 0 tabletIndications: (50 mg total) 0 chronic pain by mouth every 6 (six) hours as needed for moderate pain for up to 90 doses .chronic pain. 07/01/2019 Discontinued promethazine (PHENERGAN) Take 1 tablet 30 tablet 3 12.5 MG tablet (12.5 mg 0 total) by mouth every 6 (six) hours as needed for nausea or vomiting for up to 30 days. 07/25/2019 dronabinoL (MARINOL) 2.5 Take 1 60 capsule 0 0 MG capsule capsule (2.5 0 mg total) by mouth 2 (two) times a day before meals for 30 days. 07/31/2019 pantoprazole (PROTONIX) Take 1 tablet 30 tablet 11 20 MG EC tablet (20 mg total) 0 by mouth daily for 30 days. 07/31/2019 promethazine (PHENERGAN) Insert 1 12 3 0 25 MG suppository suppository suppository 0 (25 mg total) into the rectum every 6 (six) hours as needed for nausea or vomiting for up to 30 days. 07/17/2019 Discontinued OLANZapine (ZyPREXA) 2.5 Take 1 tablet 4 tablet 0 MG tablet (2.5 mg 0 total) by mouth nightly as needed (nausea) for up to 4 days. 08/11/2019 Lactobacillus Take 1 tablet 90 tablet 0 acidoph-L.bulgar by mouth 3 0 (FLORANEX) 1 million cell (three) times tablet a day for 30 days. 07/19/2019 cephalexin (KEFLEX) 500 Take 1 18 capsule 0 MG capsule capsule (500 0 mg total) by mouth 3 (three) times a day for 6 days. 08/12/2019 morPHINE Take 1 tablet 100 tablet 0 immediate-release 15 MG (15 mg total) 0 tabletIndications: by mouth chronic pain every 4 (four) hours as needed for severe pain for up to 100 doses .chronic pain. Max Daily Amount: 90 mg 09/20/2019 Discontinued OLANZapine (ZYPREXA) 2.5 TAKE 1 4 tablet 0 0 MG tablet TABLET(2.5 0 MG) BY MOUTH EVERY NIGHT FOR UP TO 4 DAYS NEEDED FOR NAUSEA 07/28/2019 diphenoxylate-atropine Take 1 tablet 40 tablet 2 0 (LomotiL) 2.5-0.025 mg by mouth 4 0 per tablet (four) times a day as needed for diarrhea for up to 10 days. 08/15/2019 Discontinued (Reorder) pantoprazole (Protonix) Take 1 tablet 30 tablet 11 40 MG EC tablet (40 mg total) 0 by mouth daily. 09/01/2019 diphenoxylate-atropine Take 1 tablet 60 tablet 2 0 (LomotiL) 2.5-0.025 mg by mouth 4 0 per tablet (four) times a day as needed for diarrhea for up to 30 days. 08/12/2019 baclofen 5 mg tablet Take 5 mg by 20 tablet 0 mouth 3 0 (three) times a day for 10 days. 09/02/2019 Discontinued pancrelipase, Take 1 90 capsule 11 nojcba-bthhwuxy-gvmxood, capsule by 0 (CREON) 6,000-19,000 mouth 3 -30,000 unit (three) times capsule,delayed a day with release(DR/EC) capsule meals. 08/19/2019 azithromycin (Zithromax) Take 1 tablet 6 tablet 0 250 MG tabletIndications: (250 mg 0 Malignant neoplasm of total) by body of pancreas (HCC) mouth daily for 4 days. Take 2 tablets the first day, then 1 tablet daily for 4 days. 08/22/2019 Discontinued (Reorder) potassium chloride Take 1 tablet 60 tablet 11 08/20 (KLOR-CON) 10 MEQ CR (10 mEq 0 tablet total) by mouth 2 (two) times a day. Status Hospital, Clinic, or Ordered Dose Route Frequency Start End Date Other Facility Date Administered Medication Discontinued potassium chloride 20 mEq 20 mEq IV every 1 hour 07/07 in 100 mL IVPB (FOR 20 0 CENTRAL LINE ONLY)Indications: Hypokalemia Discontinued potassium chloride 20 mEq 20 mEq IV every 1 hour 07/16 in 100 mL IVPB (FOR 20 0 CENTRAL LINE ONLY) Discontinued potassium chloride 20 mEq 20 mEq IV every 1 hour 07/16 in 100 mL IVPB (FOR 20 0 CENTRAL LINE ONLY) Ended potassium chloride 20 mEq 20 mEq IV every 1 hour 07/16 in 100 mL IVPB (FOR 20 0 CENTRAL LINE ONLY) Ended potassium chloride 20 mEq oral once 07/29/1907/01 (K-DUR) CR tablet 20 20 0 mEqIndications: Hypokalemia Ended potassium chloride 40 mEq oral once 08/19/1907/31 (K-DUR) CR tablet 40 20 0 mEqIndications: Malignant neoplasm of body of pancreas (HCC) Active Problems Problem Noted Date Rectal mass 08/21/2019 Anemia 08/21/2019 Sepsis 07/12/2019 Bacteremia 07/12/2019 Acute pyelonephritis 07/12/2019 Klebsiella infection 07/09/2019 Hypotension 07/08/2019 Chemotherapy induced diarrhea 07/01/2019 Acute cystitis without hematuria 05/31/2019 Depression 10/20/2017 Flu 05/24/2017 COPD (chronic obstructive pulmonary disease) 017 Coronary arteriosclerosis 09/24/2016 Overview: stent in coronary yrs back Essential hypertension 09/24/2016 Pancreatitis 09/23/2016 Ischemic cardiomyopathy 09/19/2016 Malignant neoplasm of body of pancreas 09/19/2016 Diverticulitis 07/20/2016 Hyperlipidemia 07/20/2016 PVD (peripheral vascular disease) 05/01/2015 Overview: stent in legs Resolved Problems Problem Noted Date Resolved Date Intractable abdominal pain 05/30/2019 08/05/2019 Epigastric pain 03/19/2019 08/05/2019 Renal mass 03/19/2018 11/15/2018 Encounters Care Team Description Date Type Specialty Conrado Cortes MD 09/21/2019 Orders Only Oncology Gabriella Matias RPH 09/20/2019 Orders Only Pharmacy Conrado Cortes MD 09/20/2019 Telephone Oncology Maricruz Cameron RN 09/20/2019 Documentation Oncology Conrado Cortes MD 09/19/2019 Refill Oncology Conrado Cortes MD 09/19/2019 Telephone Oncology Zahraa Mishra RN 09/19/2019 Documentation Oncology Conrado Cortes MD 09/12/2019 Telephone Oncology Conrado Cortes MD Malignant neoplasm of body of pancreas ( HCC) (Primary Dx); Chemotherapy induced diarrhea 09/11/2019 Nurse Only Oncology 09/10/2019 Travel Conrado Cortes MD Malignant neoplasm of body of pancreas ( HCC) (Primary Dx); Chemotherapy induced diarrhea 09/09/2019 Infusion Oncology Maricruz Cameron, GENARO 09/09/2019 Oncology Oncology Survivorship 09/09/2019 Conrado Martins MD Malignant neoplasm of body of pancreas ( HCC) (Primary Dx) 09/04/2019 Telephone Oncology Zahraa Mishra RN 09/03/2019 Orders Only Oncology Maricruz Cameron RN 09/03/2019 Telephone Oncology Conrado Cortes MD Chemotherapy induced diarrhea (Primary D x); Malignant neoplasm of body of pancreas (HCC) 09/02/2019 Infusion Oncology Zahraa Mishra RN 09/02/2019 Orders Only Oncology 09/02/2019 Zahraa Pillai RN 08/30/2019 Telephone Oncology 08/30/[address] 08/30/2019 Telephone Radiation Oncology Charley Mendoza RN 08/30/2019 Documentation Oncology Conrado Cortes MD 08/29/2019 Refill Oncology Zahraa Mishra RN 08/22/2019 Orders Only Oncology Conrado Cortes MD Chemotherapy induced diarrhea (Primary D x); Malignant neoplasm of body of pancreas (HCC); Anemia, unspecified type; Rectal mass 08/21/2019 Office Visit Oncology Conrado Cortes MD Chemotherapy induced diarrhea (Primary D x); Malignant neoplasm of body of pancreas (HCC) 08/21/2019 Nurse Only Oncology Que Hernández MD Malignant neoplasm of body of pancreas ( HCC) 08/21/2019 Hospital Radiology Encounter 08/21/2019 Travel Conrado Cortes MD 08/20/2019 Orders Only Oncology Que Hernández MD 08/20/2019 Telephone Radiation Oncology Conrado Cortes MD Chemotherapy induced diarrhea (Primary D x); Malignant neoplasm of body of pancreas (HCC) 08/19/2019 Infusion Oncology Maricruz Cameron RN 08/19/2019 Oncology Oncology Conrado Kingsley MD 08/19/2019 Orders Only Oncology 08/19/2019 Zahraa Pillai RN 08/15/2019 Orders Only Oncology Zahraa Mishra RN Malignant neoplasm of body of pancreas ( HCC) (Primary Dx) 08/15/2019 Orders Only Oncology Zahraa Mishra RN 08/15/2019 Telephone Oncology Zahraa Mishra RN 08/15/2019 Telephone Oncology Conrado Cortes MD Chemotherapy induced diarrhea (Primary D x); Malignant neoplasm of body of pancreas (HCC) 08/07/2019 Nurse Only Oncology 08/07/2019 Travel Dyana Guerrero MA Malignant neoplasm of body of pancreas ( HCC) (Primary Dx) 08/06/2019 Orders Only Oncology Zahraa Mishra RN 08/06/2019 Orders Only Oncology Conrado Cortes MD Malignant neoplasm of body of pancreas ( HCC) (Primary Dx); Chemotherapy induced diarrhea; Intractable abdominal pain 08/05/2019 Office Visit Oncology Conrado Cortes MD Malignant neoplasm of body of pancreas ( HCC) (Primary Dx); Chemotherapy induced diarrhea 08/05/2019 Infusion Oncology 08/05/2019 Shawn Pavon RN 08/05/2019 Orders Only Oncology Zahraa Mishra RN 08/02/2019 Orders Only Oncology Zahraa Mishra RN 08/02/2019 Orders Only Oncology Conrado Cortes MD 07/31/2019 Orders Only Conrado Siu MD 07/31/2019 Orders Only Oncology Lyla Fletcher [facility] 07/30/2019 Orders Only Oncology Conrado Cortes MD Malignant neoplasm of body of pancreas ( HCC) (Primary Dx); Chemotherapy induced diarrhea; Hypokalemia 07/29/2019 Infusion Oncology Lyla Fletcher [facility] 07/29/2019 Orders Only Oncology 07/29/2019 Travel 07/26/2019 Travel Maricruz Cameron RN 07/26/2019 Telephone Oncology Maricruz Cameron RN 07/25/2019 Telephone Oncology Conrado Cortes MD 07/23/2019 Telephone Oncology Zahraa Mishra RN 07/23/2019 Telephone Oncology Conrado Cortes MD Chemotherapy induced diarrhea (Primary D x); Malignant neoplasm of body of pancreas (HCC) 07/19/2019 Nurse Only Oncology 07/19/2019 Conrado Martins MD 07/18/2019 Telephone Oncology Conrado Cortes MD Malignant neoplasm of body of pancreas ( HCC) (Primary Dx); Chemotherapy induced diarrhea 07/17/2019 Infusion Oncology Conrado Cortes MD 07/17/2019 Refill Oncology Maricruz Cameron RN 07/17/2019 Oncology Oncology Survivorship Conrado Cortes MD 07/17/2019 Telephone Oncology Conrado Cortes MD 07/17/2019 Orders Only Oncology Conrado Cortes MD 07/17/2019 Telephone Oncology 07/16/2019 Conrado Martins MD 07/16/2019 Telephone Oncology Conrado Cortes MD 07/12/2019 Documentation Oncology Conrado Cortes MD 07/12/2019 Orders Only Oncology Conrado Cortes MD 07/11/2019 Telephone Oncology Lyla Fletcher [facility] 07/09/2019 Orders Only Oncology Conrado Cortes MD 07/09/2019 Orders Only Oncology Mari Carl MD Pancytopenia (HCC) (Primary Dx); Hypotension, unspecified hypotension type; Klebsiella infection; Sepsis with acute organ dysfunction, due to unspecified organism, unspecified type, unspecified whether septic shock present (HCC); Bacteremia; Acute pyelonephritis; Malignant neoplasm of body of pancreas (HCC); Coronary arteriosclerosis; Chemotherapy induced diarrhea 07/08/2019 Hospital Oncology - Encounter 07/12/2019 Conrado Cortes MD Malignant neoplasm of body of pancreas ( HCC) (Primary Dx); Chemotherapy induced diarrhea; Hypokalemia 07/08/2019 Infusion Oncology Maricruz Cameron, GENARO 07/08/2019 Oncology Oncology Survivorship Zahraa Mishra, GENARO 07/08/2019 Orders Only Oncology Zahraa Mishra, GENARO 07/08/2019 Orders Only Oncology Zahraa Mishra RN 07/08/2019 Telephone Oncology Kenya Hoyt RD 07/05/2019 Telephone Radiation Oncology Zahraa Mishra RN 07/05/2019 Orders Only Oncology Conrado Cortes MD 07/04/2019 Telephone Oncology Conrado Cortes MD 07/03/2019 Telephone Oncology Conrado Cortes MD 07/02/2019 Telephone Oncology Lyla Fletcher [facility] 07/02/2019 Orders Only Oncology Conrado Cortes MD Malignant neoplasm of body of pancreas ( HCC) (Primary Dx); Epigastric pain; Depression, unspecified depression type 07/01/2019 Office Visit Oncology Maricruz Ramos LCSW 07/01/2019 Social Work Oncology Maricruz Cameron, GENARO 07/01/2019 Telephone Oncology Maricruz Cameron, GENARO 06/28/2019 Telephone Oncology Maricruz Cameron RN 06/27/2019 Telephone Oncology Conrado Cortes MD Malignant neoplasm of body of pancreas ( HCC) (Primary Dx) 06/26/2019 Nurse Only Oncology Zahraa Mishra RN Malignant neoplasm of body of pancreas ( HCC) (Primary Dx); Alteration in comfort associated with chemotherapy; PVD (peripheral vascular disease) (HCC) 06/26/2019 Orders Only Conrado Siu MD 06/26/2019 Telephone Oncology Zahraa Mishra RN 06/25/2019 Orders Only Oncology Conrado Cortes MD Malignant neoplasm of body of pancreas ( HCC) (Primary Dx) 06/24/2019 Infusion Oncology Maricruz Cameron, GENARO 06/24/2019 Oncology Oncology Conrado Kingsley MD 06/24/2019 Telephone Oncology Conrado Cortes MD Generalized muscle weakness (Primary Dx) ; Abnormality of gait and mobility; Malignant neoplasm of body of pancreas (HCC) 06/20/2019 Telephone Oncology Conrado Cortes MD Malignant neoplasm of body of pancreas ( HCC) (Primary Dx) 06/20/2019 Telephone Oncology Conrado Cortes MD Malignant neoplasm of body of pancreas ( HCC) (Primary Dx); Epigastric pain 06/18/2019 Office Visit Oncology Remy Bayron Lyla [facility] Malignant neoplasm of body of pancreas ( HCC) (Primary Dx) 06/18/2019 Orders Only Oncology Conrado Cortes MD Malignant neoplasm of body of pancreas ( HCC) (Primary Dx); Chemotherapy induced diarrhea 06/18/2019 Orders Only Oncology Zahraa Mishra RN 06/18/2019 Telephone Oncology Zahraa Mishra RN 06/18/2019 Orders Only Oncology Zahraa Mishra RN 06/18/2019 Telephone Oncology Chris Turk MD PANCREATIC EUS with FNA 06/11/2019 Surgery Gastroenterology Gaye Milan MD [place], Morgan Braly, CRNA 06/11/2019 Anesthesia Gastroenterology Event Allie Escobedo RN 06/08/2019 Telephone General Internal [place] kaitlynn Roy, MD Megha Acosta Cecil, MD Neela, Lina Yin MD Intractable abdominal pain (Primary Dx); History of pancreatic cancer; Urinary tract infection with hematuria, site unspecified; Mesenteric thrombosis (HCC); 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 [facility] [place] [facility] - En[facility] 06/13/[address] 05/30/2019 Telephone Radiation Oncology Zahraa Mishra, GENARO 05/29/2019 Orders Only Oncology Zahraa Mishra RN 05/29/2019 Telephone Oncology Ailyn Armstrong, GENARO 05/28/2019 Telephone Radiation Oncology Ailyn Armstrong RN 05/28/2019 Telephone Radiation Oncology Que Hernández MD Malignant neoplasm of body of pancreas ( HCC) (Primary Dx) 05/27/2019 Hospital Radiation Oncology Encounter Que Hernández MD Crane, Marisel, GENARO Malignant neoplasm of body of pancreas ( HCC) (Primary Dx) 05/27/2019 Hospital Radiation Oncology Encounter Que Hernández MD 05/27/2019 Hospital Radiation Oncology Encounter Zahraa Mishra RN 05/27/2019 Orders Only Oncology Zahraa Mishra, RN 05/24/2019 Orders Only Oncology Zahraa Mishra, RN 05/24/2019 Orders Only Oncology Conrado Cortes MD Malignant neoplasm of body of pancreas ( HCC) (Primary Dx) 05/23/2019 Nurse Only Oncology Zahraa Mishra, RN 05/03/2019 Telephone Oncology Zahraa Mishra RN Malignant neoplasm of body of pancreas ( HCC) (Primary Dx) 04/29/2019 Telephone Oncology Zahraa Mishra, RN 04/23/2019 Telephone Oncology Zahraa Mishra, RN 04/19/2019 Orders Only Oncology Conrado Cortes MD 04/19/2019 Orders Only Oncology Zahraa Mishra, RN 04/19/2019 Orders Only Oncology Zahraa Mishra, RN 04/19/2019 Telephone Oncology Conrado Cortes MD Malignant neoplasm of body of pancreas ( HCC) (Primary Dx); Epigastric pain 04/17/2019 Office Visit Oncology Zahraa Mishra, RN 04/16/2019 Telephone Oncology Conrado Cortes MD Malignant neoplasm of body of pancreas ( HCC) (Primary Dx) 04/11/2019 Nurse Only Oncology Zahraa Mishra, RN 04/10/2019 Telephone Oncology Conrado Cortes MD 03/27/2019 Telephone Oncology Ai Easley LVN 03/26/2019 Telephone Gastroenterology Chris Turk MD Malignant neoplasm of body of pancreas ( HCC) (Primary Dx); Epigastric pain 03/25/2019 Office Visit Gastroenterology Chris Turk MD Malignant neoplasm of body of pancreas ( HCC) 03/21/2019 Hospital Radiology Encounter Conrado Cortes MD Malignant neoplasm of body of pancreas ( HCC) 03/19/2019 Lab Lab Conrado Cortes MD Other acute pancreatitis, unspecified co mplication status (Primary Dx); Malignant neoplasm of body of pancreas (HCC); Depression, unspecified depression type; Epigastric pain 03/19/2019 Office Visit Oncology Dyana Guerrero MA Malignant neoplasm of body of pancreas ( HCC) (Primary Dx) 03/19/2019 Orders Only Oncology Ai Easley LVN 03/15/2019 Telephone Gastroenterology Ai Easley LVN Malignant neoplasm of body of pancreas ( HCC) (Primary Dx) 03/15/2019 Orders Only Gastroenterology Helen Flores MA 03/01/2019 Telephone Gastroenterology Conrado Cortes MD 03/01/2019 Telephone Oncology Dyana Guerrero MA Malignant neoplasm of body of pancreas ( HCC) (Primary Dx); Abdominal pain, unspecified abdominal location; Weight loss 02/25/2019 Orders Only Oncology Dyana Guerrero MA 02/25/2019 Telephone Oncology Conrado Cortes MD Malignant neoplasm of body of pancreas ( HCC) 02/21/2019 Hospital Radiology Encounter Conrado Cortes MD Malignant neoplasm of body of pancreas ( HCC) (Primary Dx); Stomach pain 02/21/2019 Nurse Only Oncology Conrado Cortes MD Malignant neoplasm of body of pancreas ( HCC) (Primary Dx); Other acute pancreatitis, unspecified complication status; Depression, unspecified depression type; PVD (peripheral vascular disease) (HCC) 02/21/2019 Office Visit Oncology Conrado Cortes MD 02/21/2019 Orders Only Oncology Dyana Guerrero MA Malignant neoplasm of body of pancreas ( HCC) (Primary Dx); Stomach pain 02/21/2019 Orders Only Oncology Zahraa Mishra RN 02/18/2019 Telephone Oncology Conrado Cortes MD 02/15/2019 Telephone Oncology Conrado Cortes MD Malignant neoplasm of body of pancreas ( HCC) 02/08/2019 Hospital Radiology Encounter Conrado Cortes MD Malignant neoplasm of body of pancreas ( HCC) 02/08/2019 Lab Lab Conrado Cortes MD Malignant neoplasm of body of pancreas ( HCC) (Primary Dx) 02/07/2019 Telephone Oncology Zahraa Mishra RN 02/06/2019 Telephone Oncology Conrado Cortes MD Malignant neoplasm of body of pancreas ( HCC) (Primary Dx) 01/17/2019 Nurse Only Oncology Gabriella Matias RPH 01/16/2019 Orders Only Pharmacy Conrado Cortes MD Malignant neoplasm of body of pancreas ( HCC) (Primary Dx) 12/06/2018 Nurse Only Oncology Gabriella Matias RPH 12/05/2018 Orders Only Pharmacy Conrado Cortes MD Malignant neoplasm of body of pancreas ( HCC) 11/15/2018 Lab Lab Conrado Cortes MD Malignant neoplasm of body of pancreas ( HCC) (Primary Dx); Depression, unspecified depression type 11/15/2018 Office Visit Oncology Jonganatoliy Dyana, MA Malignant neoplasm of body of pancreas ( HCC) (Primary Dx) 11/15/2018 Orders Only Oncology Conrado Cortes MD Malignant neoplasm of body of pancreas ( HCC) (Primary Dx) 10/25/2018 Nurse Only Oncology after 09/20/2018 Family History Medical History Relation Name Comments Heart disease Father Heart disease Mother Relation Name Status Comments Father Mother Social History Date Tobacco Use Types Packs/Day Years Used Former Smoker Cigarettes Smokeless Tobacco: Never Used Drinks/Week oz/Week Comments Alcohol Use occ Yes Sex Assigned at Date Recorded Not on file Industry Job Start Date Occupation Not on file Not on file Not on file Travel End Travel History Travel Start No recent travel history available. Date Recorded COVID-19 Exposure Response 09/10/2019 10:25 AM CDT In the last month, have you been in contact with No / Unsure someone who was confirmed or suspected to have Coronavirus / COVID-19? Last Filed Vital Signs Reading Time Taken Comments Vital Sign 116/58 09/11/2019 2:14 PM CDT Blood Pressure 83 09/11/2019 2:14 PM CDT Pulse 36.2 C (97.1 F) 09/11/2019 2:14 PM CDT Temperature 18 09/11/2019 2:14 PM CDT Respiratory Rate 96% 09/11/2019 2:14 PM CDT Oxygen Saturation - - Inhaled Oxygen Concentration 39.1 kg (86 lb 1.6 oz) 09/11/2019 2:14 PM CDT Weight 157.5 cm (5' 2") 09/11/2019 2:14 PM CDT Height 15.75 09/11/2019 2:14 PM CDT Body Mass Index Plan of Treatment Care Team Description Date Type Specialty Conrado Cortes MD [address] [address] 09/24/2019 Infusion Oncology Conrado Cortes MD 1382 [facility] [address] [address] [phone] 09/24/2019 Office Visit Oncology Conrado Cortes MD [address] [address] [phone] 09/26/2019 Nurse Only Oncology Conrado Cortes MD [address] [address] [phone] 10/08/2019 Infusion Oncology Conrado Cortes MD [address] [address] [phone] 10/08/2019 Office Visit Oncology Conrado Cortes MD [address] [place] [address] [phone] 10/10/2019 Nurse Only Oncology Conrado Cortes MD [address] [place] [address] [phone] 10/22/2019 Infusion Oncology Conrado Cortes MD [address] [place] [address] [phone] 10/24/2019 Nurse Only Oncology Health Maintenance Due Date Last Done Comments SHINGLES VACCINES (#1) 1988 65+ PNEUMOCOCCAL VACCINE 12/21/2003 (1 of 2 - PCV13) INFLUENZA VACCINE 11/30/2019 Implants Device Identifier Shelf Expiration Date Model / Serial / L ot Implanted Type Area Manufactur er 08/29/2019 [id number] / / [id number] Port Imlpntbl Smart Port W/ Dtchd Implantabl N/A: N/A ANGIODYNAM 0.4ml 6.6fr 55cm 1.4x2.2mm - e Infusion [employer] [id number] Ports or Implanted: 10/17/2016 at [facility] (Quantity not on file) s Procedures Comments Procedure Name Priority Date/Time Associated Diag nosis ESTIMATED GFR STAT 09/09/2019 8:45 AM CDT MAGNESIUM LEVEL STAT 09/09/2019 Chemotherapy i nduced 8:45 AM CDT diarrhea Malignant neoplasm of body of pancreas (HCC) HC COMPLETE BLD COUNT STAT 09/09/2019 Chemothe rapy induced W/AUTO DIFF 8:45 AM CDT diarrhea Malignant neoplasm of body of pancreas (HCC) COMPREHENSIVE METABOLIC STAT 09/09/2019 Chemot herapy induced PANEL 8:45 AM CDT diarrhea Malignant neoplasm of body of pancreas (HCC) CANCER ANTIGEN 19-9 STAT 09/09/2019 Chemothera py induced 8:45 AM CDT diarrhea Malignant neoplasm of body of pancreas (HCC) CARCINOEMBRYONIC ANTIGEN STAT 09/09/2019 Chemo therapy induced (CEA) 8:45 AM CDT diarrhea Malignant neoplasm of body of pancreas (HCC) CANCER ANTIGEN 19-9 Routine 09/02/2019 Chemothera py induced 9:24 AM CDT diarrhea Malignant neoplasm of body of pancreas (HCC) CARCINOEMBRYONIC ANTIGEN Routine 09/02/2019 Chemo therapy induced (CEA) 9:24 AM CDT diarrhea Malignant neoplasm of body of pancreas (HCC) MANUAL DIFFERENTIAL STAT 09/02/2019 9:01 AM CDT CBC WITH PLATELET AND STAT 09/02/2019 Chemothe rapy induced DIFFERENTIAL 9:01 AM CDT diarrhea Malignant neoplasm of body of pancreas (HCC) ESTIMATED GFR STAT 09/02/2019 8:43 AM CDT MAGNESIUM LEVEL STAT 09/02/2019 Chemotherapy i nduced 8:43 AM CDT diarrhea Malignant neoplasm of body of pancreas (HCC) COMPREHENSIVE METABOLIC STAT 09/02/2019 Chemot herapy induced PANEL 8:43 AM CDT diarrhea Malignant neoplasm of body of pancreas (HCC) CT ABDOMEN WWO CONTRAST Routine 08/21/2019 Malign ant neoplasm of PELVIS W CONTRAST 11:54 AM CDT body of pancreas (H CC) ESTIMATED GFR STAT 08/19/2019 8:45 AM CDT MAGNESIUM LEVEL STAT 08/19/2019 Chemotherapy i nduced 8:45 AM CDT diarrhea Malignant neoplasm of body of pancreas (HCC) HC COMPLETE BLD COUNT STAT 08/19/2019 Chemothe rapy induced W/AUTO DIFF 8:45 AM CDT diarrhea Malignant neoplasm of body of pancreas (HCC) COMPREHENSIVE METABOLIC STAT 08/19/2019 Chemot herapy induced PANEL 8:45 AM CDT diarrhea Malignant neoplasm of body of pancreas (HCC) ESTIMATED GFR STAT 08/05/2019 8:19 AM CDT MAGNESIUM LEVEL STAT 08/05/2019 Chemotherapy i nduced 8:19 AM CDT diarrhea Malignant neoplasm of body of pancreas (HCC) HC COMPLETE BLD COUNT STAT 08/05/2019 Chemothe rapy induced W/AUTO DIFF 8:19 AM CDT diarrhea Malignant neoplasm of body of pancreas (HCC) COMPREHENSIVE METABOLIC STAT 08/05/2019 Chemot herapy induced PANEL 8:19 AM CDT diarrhea Malignant neoplasm of body of pancreas (HCC) CANCER ANTIGEN 19-9 STAT 08/05/2019 Chemothera py induced 8:19 AM CDT diarrhea Malignant neoplasm of body of pancreas (HCC) CARCINOEMBRYONIC ANTIGEN STAT 08/05/2019 Chemo therapy induced (CEA) 8:19 AM CDT diarrhea Malignant neoplasm of body of pancreas (HCC) MANUAL DIFFERENTIAL STAT 07/29/2019 8:40 AM CDT ESTIMATED GFR STAT 07/29/2019 8:40 AM CDT MAGNESIUM LEVEL STAT 07/29/2019 Chemotherapy i nduced 8:40 AM CDT diarrhea Malignant neoplasm of body of pancreas (HCC) CBC WITH PLATELET AND STAT 07/29/2019 Chemothe rapy induced DIFFERENTIAL 8:40 AM CDT diarrhea Malignant neoplasm of body of pancreas (HCC) COMPREHENSIVE METABOLIC STAT 07/29/2019 Chemot herapy induced PANEL 8:40 AM CDT diarrhea Malignant neoplasm of body of pancreas (HCC) CANCER ANTIGEN 19-9 STAT 07/29/2019 Chemothera py induced 8:40 AM CDT diarrhea Malignant neoplasm of body of pancreas (HCC) CARCINOEMBRYONIC ANTIGEN STAT 07/29/2019 Chemo therapy induced (CEA) 8:40 AM CDT diarrhea Malignant neoplasm of body of pancreas (HCC) ESTIMATED GFR STAT 07/17/2019 8:40 AM CDT MAGNESIUM LEVEL STAT 07/17/2019 Chemotherapy i nduced 8:40 AM CDT diarrhea Malignant neoplasm of body of pancreas (HCC) HC COMPLETE BLD COUNT STAT 07/17/2019 Chemothe rapy induced W/AUTO DIFF 8:40 AM CDT diarrhea Malignant neoplasm of body of pancreas (HCC) COMPREHENSIVE METABOLIC STAT 07/17/2019 Chemot herapy induced PANEL 8:40 AM CDT diarrhea Malignant neoplasm of body of pancreas (HCC) ESTIMATED GFR Routine 07/12/2019 4:00 AM CDT BASIC METABOLIC PANEL Routine 07/12/2019 4:00 AM CDT HC COMPLETE BLD COUNT Routine 07/12/2019 W/AUTO DIFF 4:00 AM CDT POTASSIUM LEVEL Routine 07/11/2019 4:10 PM CDT CLOSTRIDIUM DIFFICILE Routine 07/11/2019 TOXIN 5:28 AM CDT MANUAL DIFFERENTIAL Routine 07/11/2019 3:30 AM CDT ESTIMATED GFR Routine 07/11/2019 3:30 AM CDT PHOSPHORUS LEVEL Routine 07/11/2019 3:30 AM CDT MAGNESIUM LEVEL Routine 07/11/2019 3:30 AM CDT BASIC METABOLIC PANEL Routine 07/11/2019 3:30 AM CDT CBC WITH PLATELET AND Routine 07/11/2019 DIFFERENTIAL 3:30 AM CDT ESTIMATED GFR Routine 07/10/2019 1:40 PM CDT PHOSPHORUS LEVEL Routine 07/10/2019 1:40 PM CDT BASIC METABOLIC PANEL Routine 07/10/2019 1:40 PM CDT MAGNESIUM LEVEL Routine 07/10/2019 1:40 PM CDT MANUAL DIFFERENTIAL Routine 07/10/2019 3:20 AM CDT ESTIMATED GFR Routine 07/10/2019 3:20 AM CDT PHOSPHORUS LEVEL Routine 07/10/2019 3:20 AM CDT MAGNESIUM LEVEL Routine 07/10/2019 3:20 AM CDT BASIC METABOLIC PANEL Routine 07/10/2019 3:20 AM CDT CBC WITH PLATELET AND Routine 07/10/2019 DIFFERENTIAL 3:20 AM CDT MICROALBUMIN, URINE, Routine 07/09/2019 RANDOM 6:30 PM CDT CREATININE LEVEL, URINE, Routine 07/09/2019 RANDOM 6:30 PM CDT PROTEIN, URINE, RANDOM Routine 07/09/2019 6:30 PM CDT ESTIMATED GFR Routine 07/09/2019 5:44 PM CDT BASIC METABOLIC PANEL Routine 07/09/2019 5:44 PM CDT PHOSPHORUS LEVEL Routine 07/09/2019 5:44 PM CDT MAGNESIUM LEVEL Routine 07/09/2019 5:44 PM CDT US RENAL Routine 07/09/2019 4:37 PM CDT GASTROINTESTINAL PANEL Routine 07/09/2019 10:45 AM CDT MANUAL DIFFERENTIAL Routine 07/09/2019 4:15 AM CDT BILIRUBIN DIRECT Routine 07/09/2019 4:15 AM CDT ESTIMATED GFR Routine 07/09/2019 4:15 AM CDT CANCER ANTIGEN 19-9 Routine 07/09/2019 4:15 AM CDT URIC ACID LEVEL Routine 07/09/2019 4:15 AM CDT T4, FREE Routine 07/09/2019 4:15 AM CDT THYROID STIMULATING Routine 07/09/2019 HORMONE 4:15 AM CDT PREALBUMIN LEVEL Routine 07/09/2019 4:15 AM CDT PHOSPHORUS LEVEL Routine 07/09/2019 4:15 AM CDT MAGNESIUM LEVEL Routine 07/09/2019 4:15 AM CDT COMPREHENSIVE METABOLIC Routine 07/09/2019 PANEL 4:15 AM CDT CREATINE KINASE, TOTAL Routine 07/09/2019 (CPK) 4:15 AM CDT B NATRIURETIC PEPTIDE Routine 07/09/2019 4:15 AM CDT PARTIAL THROMBOPLASTIN Routine 07/09/2019 TIME (PTT) 4:15 AM CDT PROTHROMBIN TIME WITH INR Routine 07/09/2019 4:15 AM CDT CBC WITH PLATELET AND Routine 07/09/2019 DIFFERENTIAL 4:15 AM CDT URINE CULTURE Routine 07/08/2019 6:57 PM CDT URINALYSIS SCREEN AND Routine 07/08/2019 MICROSCOPY, WITH REFLEX 5:40 PM CDT TO CULTURE MANUAL DIFFERENTIAL Routine 07/08/2019 4:00 PM CDT ESTIMATED GFR Routine 07/08/2019 4:00 PM CDT LACTIC ACID LEVEL Routine 07/08/2019 4:00 PM CDT MAGNESIUM LEVEL Routine 07/08/2019 4:00 PM CDT COMPREHENSIVE METABOLIC Routine 07/08/2019 PANEL 4:00 PM CDT CBC WITH PLATELET AND Routine 07/08/2019 DIFFERENTIAL 4:00 PM CDT BLOOD CULTURE, AEROBIC & Routine 07/08/2019 ANAEROBIC 4:00 PM CDT BLOOD CULTURE, AEROBIC & Routine 07/08/2019 ANAEROBIC 4:00 PM CDT MANUAL DIFFERENTIAL STAT 07/08/2019 9:00 AM CDT ESTIMATED GFR STAT 07/08/2019 9:00 AM CDT MAGNESIUM LEVEL STAT 07/08/2019 Chemotherapy i nduced 9:00 AM CDT diarrhea Malignant neoplasm of body of pancreas (HCC) CBC WITH PLATELET AND STAT 07/08/2019 Chemothe rapy induced DIFFERENTIAL 9:00 AM CDT diarrhea Malignant neoplasm of body of pancreas (HCC) COMPREHENSIVE METABOLIC STAT 07/08/2019 Chemot herapy induced PANEL 9:00 AM CDT diarrhea Malignant neoplasm of body of pancreas (HCC) ESTIMATED GFR STAT 06/24/2019 9:49 AM [employer] MAGNESIUM LEVEL STAT 06/24/2019 Malignant neop lasm of 9:49 AM [employer] body of pancreas (HCC) HC COMPLETE BLD COUNT STAT 06/24/2019 Malignan t neoplasm of W/AUTO DIFF 9:49 AM [employer] body of pancreas (H CC) COMPREHENSIVE METABOLIC STAT 06/24/2019 Malign ant neoplasm of PANEL 9:49 AM [employer] body of pancreas (H CC) ESTIMATED GFR Routine 06/13/2019 5:06 AM [employer] BASIC METABOLIC PANEL Routine 06/13/2019 5:06 AM [employer] HC COMPLETE BLD COUNT Routine 06/13/2019 W/AUTO DIFF 5:06 AM [employer] PROTHROMBIN TIME WITH INR Routine 06/12/2019 4:08 AM [employer] RETICULOCYTE COUNT Routine 06/12/2019 4:08 AM [employer] D-DIMER Routine 06/12/2019 4:08 AM [employer] HC COMPLETE BLD COUNT Routine 06/12/2019 W/AUTO DIFF 4:08 AM [employer] ESTIMATED GFR Routine 06/12/2019 4:00 AM [employer] FERRITIN LEVEL Routine 06/12/2019 4:00 AM [employer] FOLATE LEVEL Routine 06/12/2019 4:00 AM [employer] VITAMIN B12 LEVEL Routine 06/12/2019 4:00 AM [employer] BASIC METABOLIC PANEL Routine 06/12/2019 4:00 AM [employer] CYTOLOGY Routine 06/11/2019 (NON-GYNECOLOGICAL) 12:43 PM [employer] REQUEST ESOPHAGOGASTRODUODENOSCOP 06/11/2019 Pancreatic cyst Y (EGD) 11:56 AM [employer] US UPPER GI TRACT, 06/11/2019 Pancreatic cyst ENDOSCOPIC 11:56 AM [employer] HC COMPLETE BLD COUNT Routine 06/11/2019 W/AUTO DIFF 4:40 AM [employer] ESTIMATED GFR Routine 06/11/2019 4:00 AM [employer] BASIC METABOLIC PANEL Routine 06/11/2019 4:00 AM [employer] ESTIMATED GFR Routine 06/09/2019 4:10 AM [employer] HC COMPLETE BLD COUNT Routine 06/09/2019 W/AUTO DIFF 4:10 AM [employer] BASIC METABOLIC PANEL Routine 06/09/2019 4:10 AM [employer] ESTIMATED GFR Routine 06/08/2019 4:40 AM [employer] HC COMPLETE BLD COUNT Routine 06/08/2019 W/AUTO DIFF 4:40 AM [employer] BASIC METABOLIC PANEL Routine 06/08/2019 4:40 AM [employer] ESTIMATED GFR Routine 06/07/2019 4:48 AM [employer] HC COMPLETE BLD COUNT Routine 06/07/2019 W/AUTO DIFF 4:48 AM [employer] BASIC METABOLIC PANEL Routine 06/07/2019 4:48 AM [employer] HC COMPLETE BLD COUNT Routine 06/06/2019 W/AUTO DIFF 5:00 AM [employer] ESTIMATED GFR Routine 06/06/2019 4:00 AM [employer] BASIC METABOLIC PANEL Routine 06/06/2019 4:00 AM [employer] D-DIMER Routine 06/05/2019 6:23 AM [employer] CANCER ANTIGEN 19-9 Routine 06/05/2019 6:23 AM [employer] CARCINOEMBRYONIC ANTIGEN Routine 06/05/2019 (CEA) 6:23 AM [employer] HC COMPLETE BLD COUNT Routine 06/05/2019 W/AUTO DIFF 6:23 AM [employer] XR CHEST 2 VW Routine 06/04/2019 6:38 PM [employer] HC COMPLETE BLD COUNT Routine 06/04/2019 W/AUTO DIFF 4:05 AM [employer] ESTIMATED GFR Routine 06/03/2019 5:25 AM [employer] COMPREHENSIVE METABOLIC Routine 06/03/2019 PANEL 5:25 AM [employer] HC COMPLETE BLD COUNT Routine 06/03/2019 W/AUTO DIFF 5:25 AM [employer] ESTIMATED GFR Routine 06/02/2019 3:21 AM [employer] COMPREHENSIVE METABOLIC Routine 06/02/2019 PANEL 3:21 AM [employer] HC COMPLETE BLD COUNT Routine 06/02/2019 W/AUTO DIFF 3:21 AM [employer] POTASSIUM LEVEL Routine 06/01/2019 6:26 PM [employer] ESTIMATED GFR Routine 06/01/2019 3:50 AM [employer] COMPREHENSIVE METABOLIC Routine 06/01/2019 PANEL 3:50 AM [employer] HC COMPLETE BLD COUNT Routine 06/01/2019 W/AUTO DIFF 3:50 AM [employer] TROPONIN Timed 06/01/2019 3:50 AM [employer] TROPONIN Timed 05/31/2019 5:50 PM [employer] B NATRIURETIC PEPTIDE Routine 05/31/2019 5:50 PM [employer] TTE COMPLETE, WO Routine 05/31/2019 CONTRAST, W DOPPLER 4:30 PM [employer] ([id number]) LACTIC ACID LEVEL STAT 05/31/2019 12:35 AM [employer] POTASSIUM LEVEL STAT 05/30/2019 11:[address] ABDOMEN PELVIS W STAT 05/30/2019 CONTRAST 9:29 PM [employer] URINE CULTURE STAT 05/30/2019 6:51 PM [employer] URINALYSIS SCREEN AND STAT 05/30/2019 MICROSCOPY, WITH REFLEX 6:34 PM [employer] TO CULTURE ESTIMATED GFR STAT 05/30/2019 3:28 PM [employer] LIPASE LEVEL STAT 05/30/2019 3:28 PM [employer] COMPREHENSIVE METABOLIC STAT 05/30/2019 PANEL 3:28 PM [employer] HC COMPLETE BLD COUNT STAT 05/30/2019 W/AUTO DIFF 3:[address] ABDOMEN W WO CONTRAST Routine 03/21/2019 Malig nant neoplasm of 4:34 PM [employer] body of pancreas (HCC) ESTIMATED GFR Routine 03/19/2019 1:48 PM [employer] LIPASE LEVEL Routine 03/19/2019 Malignant neopl asm of 1:48 PM [employer] body of pancreas (HCC) AMYLASE LEVEL Routine 03/19/2019 Malignant neopl asm of 1:48 PM [employer] body of pancreas (HCC) COMPREHENSIVE METABOLIC Routine 03/19/2019 Malign ant neoplasm of PANEL 1:48 PM [employer] body of pancreas (H CC) HC COMPLETE BLD COUNT Routine 03/19/2019 Malignan t neoplasm of W/AUTO DIFF 1:48 PM [employer] body of pancreas (H CC) XR CHEST 2 VW Routine 02/21/2019 Malignant neopl asm of 2:31 PM CDT body of pancreas (HCC) GRAM STAIN Routine 02/21/2019 2:00 PM CDT URINE CULTURE Routine 02/21/2019 2:00 PM CDT ESTIMATED GFR STAT 02/21/2019 1:41 PM CDT COMPREHENSIVE METABOLIC STAT 02/21/2019 Malign ant neoplasm of PANEL 1:41 PM CDT body of pancreas (H CC) HC COMPLETE BLD COUNT Routine 02/21/2019 Malignan t neoplasm of W/AUTO DIFF 1:41 PM CDT body of pancreas (H CC) URINALYSIS SCREEN AND Routine 02/21/2019 Malignan t neoplasm of MICROSCOPY, WITH REFLEX 1:38 PM CDT body of pancr eas (HCC) TO CULTURE ESTIMATED GFR Routine 02/21/2019 1:29 PM CDT COMPREHENSIVE METABOLIC Routine 02/21/2019 Malign ant neoplasm of PANEL 1:29 PM CDT body of pancreas (H CC) AMYLASE LEVEL Routine 02/21/2019 Malignant neopl asm of 1:29 PM CDT body of pancreas (HCC) Stomach pain LIPASE LEVEL Routine 02/21/2019 Malignant neopl asm of 1:29 PM CDT body of pancreas (HCC) Stomach pain CARCINOEMBRYONIC ANTIGEN Routine 02/21/2019 Malig nant neoplasm of (CEA) 1:28 PM CDT body of pancreas (H CC) CANCER ANTIGEN 19-9 Routine 02/21/2019 Malignant neoplasm of 1:28 PM CDT body of pancreas (HCC) CT ABDOMEN WWO CONTRAST STAT 02/08/2019 Malign ant neoplasm of PELVIS W CONTRAST 1:15 PM CDT body of pancreas (H CC) ESTIMATED GFR STAT 02/08/2019 11:24 AM CDT HC COMPLETE BLD COUNT STAT 02/08/2019 Malignan t neoplasm of W/AUTO DIFF 11:24 AM CDT body of pancreas (H CC) COMPREHENSIVE METABOLIC STAT 02/08/2019 Malign ant neoplasm of PANEL 11:24 AM CDT body of pancreas (H CC) ESTIMATED GFR Routine 11/15/2018 1:14 PM CDT CANCER ANTIGEN 19-9 Routine 11/15/2018 Malignant neoplasm of 1:14 PM CDT body of pancreas (HCC) COMPREHENSIVE METABOLIC Routine 11/15/2018 Malign ant neoplasm of PANEL 1:14 PM CDT body of pancreas (H CC) HC COMPLETE BLD COUNT Routine 11/15/2018 Malignan t neoplasm of W/AUTO DIFF 1:14 PM CDT body of pancreas (H CC) after 09/20/2018 Results * Estimated GFR (09/09/2019 8:45 AM CDT) Only the most recent of 31 results within the time period is included. Estimated GFR 57 (A) mL/min/1.73 m2 [place] Comment: CHEONDOISM [facility] Interpretation G1 >=90 Normal or high G2 60-89 Mildly decreased G3a 45-59 Mildly to moderately decreased G3b 30-44 Moderately to severely decreased G4 15-29 Severely decreased G5 <15 Kidney failure The eGFR was calculated using the Chronic Kidney Disease Epidemiology Collaboration (CKD-EPI) equation. Interpretation is based on recommendations of the National Kidney Foundation-Kidney Disease Outcomes Quality Initiative (NKF-KDOQI) published in 2014. Specimen Performing Organization Address City/[facility] Ph one Number [facility] DEPARTMENT OF [address] [place] [address] PATHOLOGY AND GENOMIC MEDICINE [address] * Cancer antigen 19-9 (09/09/2019 8:45 AM CDT) Only the most recent of 8 results within the time period is included. Pathologist [facility] CA 19-9 156 (H) 0 - 35 U/mL [place] Comment: CHEONDOISM The [employer] Wm 8000 CA19-9 [facility] immunoassay was used. Results obtained with different assay methods or kits should not be used interchangeably and may be different. Specimen Blood Performing Organization Address City/[facility] Ph one Number [facility] DEPARTMENT OF [address] [place] [address] PATHOLOGY AND GENOMIC MEDICINE [address] * CBC with platelet and differential (09/09/2019 8:45 AM CDT) Only the most recent of 30 results within the time period is included. Pathologist [facility] WBC 8.16 4.50 - 11.00 k/uL [facility] RBC 2.56 (L) 4.20 - 5.50 m/uL [facility] HGB 7.7 (L) 12.0 - 16.0 g/dL [facility] HCT 25.8 (L) 37.0 - 47.0 % [facility] MCV 100.8 (H) 82.0 - 100.0 fL [facility] MCH 30.1 27.0 - 34.0 pg [facility] MCHC 29.8 (L) 31.0 - 37.0 g/dL [facility] RDW - SD 66.4 (H) 37.0 - 55.0 fL [facility] MPV 9.4 8.8 - 13.2 fL [facility] Platelet count 400 150 - 400 k/uL [facility] Nucleated RBC 0.00 /100 WBC [facility] Neutrophils 71.1 (H) 39.0 - 69.0 % [facility] Lymphocytes 14.5 (L) 25.0 - 45.0 % [facility] Monocytes 12.6 (H) 0.0 - 10.0 % [facility] Eosinophils 0.2 0.0 - 5.0 % [facility] Basophils 0.5 0.0 - 1.0 % [facility] Immature 1.1 (H)Comment: "Immature 0.0 - 1.0 % [facility] granulocytes granulocytes" (promyelocytes, METHOD IST myelocytes, metamyelocytes) HOSPITAL Specimen Blood Performing Organization Address City/[facility] one Number [facility] [place] [address] PATHOLOGY AND [facility] MEDICINE [address] * Magnesium level (09/09/2019 8:45 AM CDT) Only the most recent of 14 results within the time period is included. Pathologist [facility] Magnesium 2.3 1.6 - 2.4 mg/dL [facility] Specimen Blood Performing Organization Address City/[facility] one Number [facility] [place] [place] [address] PATHOLOGY AND GENOMIC MEDICINE [address] * Carcinoembryonic antigen (CEA) (09/09/2019 8:45 AM CDT) Only the most recent of 6 results within the time period is included. CEA 4.7 (H) 0.0 - 3.8 ng/mL [place] Comment: CHEONDOISM Reference range for heavy HOSPITAL smokers: 0.0 - 5.5 ng/mL [employer] Wm 8000 CEA immunoassay was used. Results obtained with different assay methods or kits should not be used interchangeably and may be different. Specimen Serum Performing Organization Address [facility] one Number [facility] [place] [address] PATHOLOGY AND GENOMIC MEDICINE [address] * Comprehensive metabolic panel (09/09/2019 8:45 AM CDT) Only the most recent of 19 results within the time period is included. Sodium 135 135 - 148 mEq/L [facility] Potassium 5.0 3.5 - 5.0 mEq/L [facility] Chloride 101 98 - 112 mEq/L [facility] CO2 23 (L) 24 - 31 mEq/L [facility] Anion gap 11@ANIO 7 - 15 mEq/L [facility] BUN 17 8 - 23 mg/dL [facility] Creatinine 0.94 (H) 0.50 - 0.90 mg/dL [facility] Glucose 114 (H) 65 - 99 mg/dL [facility] Calcium 8.9 8.8 - 10.2 mg/dL [facility] Protein 6.8 6.3 - 8.3 g/dL [place] Comment: [facility] 4.6-7.0 g/dL 1 week 4.4-7.6 g/dL 7 months-1year 5.1-7.3 g/dL 1-2 years 5.6-7.5 g/dL >3 years 6.0-8.0 g/dL 18-150 6.3-8.3 g/dL Albumin 2.1 (L) 3.5 - 5.0 g/dL [facility] A/G ratio 0.4 (L) 0.7 - 3.8 [facility] Alkaline 121 (H) 35 - 104 U/L [place] phosphatase [facility] AST 20 10 - 35 U/L [facility] ALT 13 5 - 50 U/L [facility] Total bilirubin <0.2 0.0 - 1.2 mg/dL [facility] Specimen Blood Performing Organization Address City/State/Zipcoor Ph one Number [facility] DEPARTMENT OF [address] [place] [id number] PATHOLOGY AND GENOMIC MEDICINE [address] * Manual differential (09/02/2019 9:01 AM CDT) Only the most recent of 7 results within the time period is included. Manual PERFORMED [place] differential [facility] Neutrophils 27.0 (L) 39.0 - 69.0 % [facility] Lymphocytes 42.0 25.0 - 45.0 % [facility] Monocytes 29.0 (H) 0.0 - 10.0 % [facility] Eosinophils 0.0 0.0 - 5.0 % [facility] Basophils 0.0 0.0 - 1.0 % [facility] Metamyelocytes 1 % [facility] Myelocytes 1 % [facility] Promyelocytes 0 % [facility] Platelet slide Gabrielle adequate [facility] Anisocytosis Moderate [facility] Polychromasia Moderate [facility] Ovalocytes Moderate [facility] Enlarged Moderate (A) [facility] Specimen Performing Organization Address City/State/Zipcode Ph one Number [facility] DEPARTMENT OF [address] [place] [address] PATHOLOGY AND GENOMIC MEDICINE [facility] [address] [place] [address] * CT Abdomen WWO Contrast, Pelvis W Contrast (08/21/2019 11:54 AM CDT) Only the most recent of 2 results within the time period is included. Specimen Narrative Performed At EXAMINATION: CT ABDOMEN WWO CONTRAST PELVIS W CONTR AST HM [facility] CLINICAL HISTORY: C25.1 Malignant sweta plasm of body of pancreas, Pancreatic cancer s p chemoradiation TECHNIQUE: Noncontrast images of the ab domen were obtained. Subsequently, axial images of the abdomen and pelvis were o btained following intravenous administration of iodinated contrast. S agittal and coronal computerized reformatted images were also obtained. CT imaging was performed with iterative reconstruction techniques and/or automated exposure control to reduce ra diation dose. COMPARISON: CT abdomen and pelvis 05/03 Findings: 1.The pancreatic neck and body mass phuc t encases the hepatic, splenic, and superior mesenteric arteries is stable. (The splenic artery arises directly off the aorta). The mass measures 3.3 x 2.3 cm on series 303 image 34. 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 2.Pancreatic tail cyst measuring 5.7 x 3.7 cm is slightly increased from previous. There is new mild upper abdom inal ascites but no definite solid peritoneal nodule. 3.In the ascending colon, arising off t he lateral wall just above the cecum, an irregular 3 x 1.8 x 1.4 cm polypoid mas s (axial image 106, coronal image 33, sagittal image 29) is present. There ma y be an additional smaller polyp in the hepatic flexure measuring 8 mm on (axial image 68). The re is sigmoid diverticulosis. No bowel obstruction or acute inflammation is ap preciated. The stomach is unremarkable. 4.The liver, spleen, and adrenals are n ormal. 5.There are tiny stones in the gallblad rusty. 6.Bilateral renal benign cysts, right r enal cortical scarring, and subcentimeter nonobstructing right lower pole intrare nal calculi, are present. 7.There is diffuse urinary bladder wall thickening, at least in part accentuated by nondistention but more prominent phuc n previous examination and therefore worrisome for superimposed cystitis. 8.No suspicious lymph nodes are seen. 9.There is no acute or aggressive skele ashanti finding. 10.Diffuse atherosclerosis is redemonst rated. There are stents in the bilateral iliac arteries. 11.Bilateral pulmonary emphysema and le ft lower lobe scarring are noted. Impression: 1.Stable locally advanced pancreatic pr imary tumor. No distant metastatic disease/new sites of disease. 2.Mild ascites is new, though there is no obvious peritoneal tumor implant. 3.Pancreatic tail cyst is slightly larg er. 4.Bladder wall thickening, please corre late for possible cystitis. 5.Polypoid 3 cm mass in the ascending c olon, and possible additional subcentimeter polyp in the hepatic flex ure. Malignancy not excluded. [facility]-[id number] Procedure Note [facility], Radiology Results Incoming - 08/21/2019 12:19 PM CDT EXAMINATION: CT ABDOMEN WWO CONTRAST PELVIS W CONTRAST CLINICAL HISTORY: C25.1 Malignant neoplasm of body of pancreas, Pancreatic cancer s p chemoradiation TECHNIQUE: Noncontrast images of the abdomen were obtained. Subsequently, axial images of the abdomen and pelvis were obtained following intravenous administration of iodinated contrast. Sagittal and coronal computerized reformatted images were also obtained. CT imaging was performed with iterative reconstruction techniques and/or automated exposure control to reduce radiation dose. COMPARISON: CT abdomen and pelvis 05/30/2019 Findings: 1.The pancreatic neck and body mass that encases the hepatic, splenic, and superior mesenteric arteries is stable. (The splenic artery arises directly off the aorta). The mass measures 3.3 x 2.3 cm on series 303 image 34. 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 2.Pancreatic tail cyst measuring 5.7 x 3 .7 cm is slightly increased from previous. There is new mild upper abdominal ascites but no definite solid peritoneal nodule. 3.In the ascending colon, arising off th e lateral wall just above the cecum, an irregular 3 x 1.8 x 1.4 cm polypoid mass (axial image 106, coronal image 33, sagittal image 29) is present. There may be an additional smaller polyp in the hepatic flexure measuring 8 mm on (axial image 68). There is sigmoid diverticulosis. No bowel obstruction or acute inflammation is appreciated. The stomach is unremarkable. 4.The liver, spleen, and adrenals are no rmal. 5.There are tiny stones in the gallbladd er. 6.Bilateral renal benign cysts, right re nal cortical scarring, and subcentimeter nonobstructing right lower pole intrarenal calculi, are present. 7.There is diffuse urinary bladder wall thickening, at least in part accentuated by nondistention but more prominent than previous examination and therefore worrisome for superimposed cystitis. 8.No suspicious lymph nodes are seen. 9.There is no acute or aggressive skelet al finding. 10.Diffuse atherosclerosis is redemonstr ated. There are stents in the bilateral iliac arteries. 11.Bilateral pulmonary emphysema and lef t lower lobe scarring are noted. Impression: 1.Stable locally advanced pancreatic montse jaqueline tumor. No distant metastatic disease/new sites of disease. 2.Mild ascites is new, though there is n o obvious peritoneal tumor implant. 3.Pancreatic tail cyst is slightly large r. 4.Bladder wall thickening, please correl ate for possible cystitis. 5.Polypoid 3 cm mass in the ascending co sergey, and possible additional subcentimeter polyp in the hepatic flexure. Malignancy not excluded. [facility]-[id number] Performing Organization Address City/State/[facility] Ph one Number [facility] [address] [place] [address] * Basic metabolic panel (07/12/2019 4:00 AM CDT) Only the most recent of 12 results within the time period is included. Sodium 140 135 - 148 mEq/L [facility] Potassium 4.5 3.5 - 5.0 mEq/L [facility] Chloride 103 98 - 112 mEq/L [facility] CO2 28 24 - 31 mEq/L [facility] Anion gap 9@ANIO 7 - 15 mEq/L [facility] BUN 7 (L) 8 - 23 mg/dL [facility] Creatinine 0.80 0.50 - 0.90 mg/dL [facility] Glucose 145 (H) 65 - 99 mg/dL [facility] Calcium 8.3 (L) 8.8 - 10.2 mg/dL [facility] Specimen Plasma specimen Performing Organization Address [facility] one Number [facility] DEPARTMENT OF [address] [place] [address] PATHOLOGY AND GENOMIC MEDICINE [address] * Potassium level (07/11/2019 4:10 PM CDT) Only the most recent of 3 results within the time period is included. Potassium 4.6 3.5 - 5.0 mEq/L [facility] Specimen Plasma specimen Performing Organization Address [facility] one Number [facility] DEPARTMENT OF [address] [place] [address] PATHOLOGY AND GENOMIC MEDICINE [address] * C difficile toxin (07/11/2019 5:28 AM CDT) Clostridium No Clostridium difficle toxin [place] difficile toxin present [facility] Comment: HOSPITAL Specimen Information Specimen Source: Stool Specimen Site: Nonpreserved Specimen Stool - Nonpreserved Performing Organization Address [facility] one Number [facility] DEPARTMENT OF [address] [place] [address] PATHOLOGY AND GENOMIC MEDICINE [address] * Phosphorus level (07/11/2019 3:30 AM CDT) Only the most recent of 5 results within the time period is included. Phosphorus 3.3 2.4 - 4.5 mg/dL [facility] Specimen Plasma specimen Performing Organization Address [facility] one Number [facility] DEPARTMENT OF [address] [place] [address] PATHOLOGY AND GENOMIC MEDICINE [address] * Microalbumin, urine, random (07/09/2019 6:30 PM CDT) Total volume, No volume mL [place] urine [facility] Urine 39 mg/dL [place] creatinine [facility] Urine <1.2 mg/dL [place] microalbumin [facility] Urine SEE COMMENTComment: Unable to 0 - 30 mg/g [place] microalbumin/cr calculate due to low analyte METHODIS T eatinine ratio concentration. HOSPITAL Specimen Urine Performing Organization Address [facility] one Number [facility] DEPARTMENT OF [address] [place] [address] PATHOLOGY AND GENOMIC MEDICINE [address] * Protein, urine, random (07/09/2019 6:30 PM CDT) Protein, urine 36 mg/dL [place] random [facility] Specimen Urine Performing Organization Address [facility] one Number [facility] DEPARTMENT OF [address] [place] [address] PATHOLOGY AND GENOMIC MEDICINE [address] * Creatinine level, urine, random (07/09/2019 6:30 PM CDT) Creatinine, 39 mg/dL [place] urine, random [facility] Specimen Urine Performing Organization Address [facility] one Number [facility] DEPARTMENT OF [address] [place] [address] PATHOLOGY AND GENOMIC MEDICINE [address] * US Renal (07/09/2019 4:37 PM CDT) Specimen Narrative Performed At Examination: RENAL [facility] Clinical history: "UTI and supecting pyelonephritis." Comparison: There are no prior sonogr aphic studies for comparison; abdominopelvic CT imaging dated 05/30/19 20. IMPRESSION: The right kidney measures 9.0 x 3.8 x 4 .7 cm. The echogenicity of the right renal parenchyma is unremarkable. A 1 0 mm in dimension cyst is noted within the right kidney. Within the lower po rtion of the right kidney, a 7 mm in dimension calculus is noted and is nonobstructing; this findi ng correlates with that of the above-mentioned CT imaging. There are no apparent solid masses, hydronephrosis or hydronephrosis within the right kidn ey. The left kidney measures 11.1 x 5.7 x 4 .6 cm. The echogenicity of the left renal parenchyma is unremarkable. 2 c ysts that appear simple are noted within the left kidney, the larger of which me asures 12.4 mm in maximal dimension. There is borderline fullness of the left renal pelvis witho ut evidence of jaret left hydronephrosis. There are no apparent solid masses , hydronephrosis, or echogenic foci to suggest renal calculi within the left k idney. The urinary bladder is unremarkable in sonographic appearance. [facility]-[id number] Procedure Note Hm Interface, Radiology Results Incoming - 07/09/2019 4:45 PM CDT Examination: US RENAL Clinical history: "UTI and supecting pyelonephritis." Comparison: There are no prior sonographic studies for comparison; abdominopelvic CT imaging dated 05/30/2019. IMPRESSION: The right kidney measures 9.0 x 3.8 x 4.7 cm. The echogenicity of the right renal parenchyma is unremarkable. A 10 mm in dimension cyst is noted within the right kidney. Within the lower portion of the right kidney, a 7 mm in dimension calculus is noted and is nonobstructing; this finding correlates with that of the above- mentioned CT imaging. There are no apparent solid masses, hydronephrosis or hydronephrosis within the right kidney. The left kidney measures 11.1 x 5.7 x 4.6 cm. The echogenicity of the left renal parenchyma is unremarkable. 2 cysts that appear simple are noted within the left kidney, the larger of which measures 12.4 mm in maximal dimension. There is borderline fullness of the left renal pelvis without evidence of jaret left hydronephrosis. There are no apparent solid masses, hydronephrosis, or echogenic foci to suggest renal calculi within the left kidney. The urinary bladder is unremarkable in sonographic appearance. [id number] Performing Organization Address City/State/Zipcode Ph one Number [facility] [address] [facility] [place] [address] * Gastrointestinal panel (07/09/2019 10:45 AM CDT) Pathologist [facility] Gastrointestina Negative for all pathogens [facility] panel tested: [place] Negative for Salmonella HOSPITAL Negative for Campylobacter Negative for Diarrheagenic E coli/Shigella Negative for Shiga-like toxin-producing E coli Negative for Plesiomonas shigelloides Negative for Yersinia enterocolitica Negative for Vibrio species Negative for Clostridium difficile (Toxin A/B) Negative for Cryptosporidium Negative for Giardia lamblia Negative for Cyclospora cayeteanensis Negative for Entamoeba histolytica Negative for Adenovirus F 40/41 Negative for Astrovirus Negative for Norovirus GI/GII Negative for Rotavirus A Negative for Sapovirus Negative for Clostridium difficile toxin Negative for E coli 0157 This real-time PCR assay detects the presence of nucleic acids (RNA or DNA) for the gastrointestinal pathogens listed. A result of "Not-detected" does not exclude the possibility of the presence of one or more pathogens at concentrations less than the detectable limits of the assay. Comment: Specimen Information Specimen Source: Stool Specimen Site: Nonpreserved Specimen Stool - Nonpreserved Performing Organization Address City/[facility] Ph one Number [facility] DEPARTMENT OF [address] [place] [address] [address] * Partial thromboplastin time, activated (07/09/2019 4:15 AM CDT) [facility] PTT 40.3 (H) 23.0 - 36.0 sec [place] Comment: [facility] PTT therapeutic range for HOSPITAL unfractionated heparin is 61.0-112.0 seconds which corresponds to Anti-Xa 0.3-0.7 U/ml. Specimen Blood Performing Organization Address [facility] Ph one Number [facility] DEPARTMENT OF [address] [place] [address] PATHOLOGY AND [facility] MEDICINE [address] * Prothrombin time with INR (07/09/2019 4:15 AM CDT) Only the most recent of 2 results within the time period is included. [facility] Prothrombin 15.8 (H) 11.5 - 14.5 sec [facility] INR 1.2 [place] Comment: [place] The International Normalized HOSPITAL Ratio (INR) is a therapeutic monitoring tool for patients who are stable on oral anticoagulant therapy. An INR of 2.0-3.0 is suggested for deep vein thrombosis/pulmonary embolism. Specimen Blood Performing Organization Address [facility] one Number [facility] DEPARTMENT OF [address] [place] [address] PATHOLOGY AND [facility] MEDICINE [address] * Uric acid level (07/09/2019 4:15 AM CDT) Uric acid 3.5 2.4 - 5.7 mg/dL [facility] Specimen Plasma specimen Performing Organization Address [facility] one Number [facility] DEPARTMENT OF [address] [place] [address] PATHOLOGY AND GENOMIC MEDICINE [address] * Thyroid stimulating hormone (07/09/2019 4:15 AM CDT) TSH 3.85 0.27 - 4.20 uIU/mL [facility] Specimen Plasma specimen Performing Organization [facility] one Number [facility] DEPARTMENT OF [address] [place] [address] PATHOLOGY AND GENOMIC MEDICINE [address] * T4, free (07/09/2019 4:15 AM CDT) T4, free 1.0 0.9 - 1.7 ng/dL [facility] Specimen Plasma specimen Performing Organization Address [facility] one Number [facility] DEPARTMENT OF [address] [place] [address] PATHOLOGY AND GENOMIC MEDICINE [address] * Prealbumin level (07/09/2019 4:15 AM CDT) Prealbumin <3 (L) 16 - 32 mg/dL [facility] Specimen Serum Performing Organization [facility] one Number [facility] DEPARTMENT OF [address] [place] [address] PATHOLOGY AND GENOMIC MEDICINE [address] * B natriuretic peptide (07/09/2019 4:15 AM CDT) Only the most recent of 2 results within the time period is included. BNP 250 (H) 0 - 100 pg/mL [facility] Specimen Blood Performing Organization Address City[facility]State[facility] Ph one Number [facility] DEPARTMENT OF [address] [place] [address] PATHOLOGY AND GENOMIC MEDICINE [address] * Creatine kinase, total (CPK) (07/09/2019 4:15 AM CDT) Creatine kinase 38 26 - 192 U/L [facility] Specimen Plasma specimen Performing Organization Address City/[facility] Ph one Number [facility] DEPARTMENT OF [address] [place] [address] PATHOLOGY AND GENOMIC MEDICINE [address] * Bilirubin direct (07/09/2019 4:15 AM CDT) Bilirubin <0.2 0.0 - 0.3 mg/dL [facility] Specimen Plasma specimen Performing Organization Address City/[facility] Ph one Number [facility] DEPARTMENT OF [address] [place] [address] PATHOLOGY AND GENOMIC MEDICINE [address] * Urine culture (07/08/2019 6:57 PM CDT) Only the most recent of 3 results within the time period is included. Urine culture Klebsiella pneumoniae DOMINIQUE isolate >10-5 cfu/ml [facility] The performance HOSPITAL characteristics of this assay on this isolate were validated by the Microbiology Laboratory at [facility]. This source has not been approved by the U.S. Food and Drug Administration. The results are not intended to be used as the sole means for clinical diagnosis or patient management. The Microbiology Laboratory is authorized under the clinical Laboratory Improvement Amendments of 1988 (CLIA-88) to perform high complexity testing. (A) Comment: Specimen Information Specimen Source: Urine Specimen Site: Clean catch Specimen Urine Antibiotic Method Susceptibility Organism Ampicillin YOGI 16 mcg/mL: Resistant Klebsiella pneumoniae Amoxicillin/Clavulanate YOGI <=2/1 mcg/mL: Susceptible Klebsiella pneumoniae Amikacin YOGI <=4 mcg/mL: Susceptible Klebsiella pneumoniae Aztreonam YOGI <=1 mcg/mL: Susceptible Klebsiella pneumoniae Ceftazidime YOGI <=0.5 mcg/mL: Susceptible Klebsiella pneumoniae Ciprofloxacin YOGI <=0.5 mcg/mL: Susceptible Klebsiella pneumoniae Ceftriaxone YOGI <=0.5 mcg/mL: Susceptible Klebsiella pneumoniae Cefuroxime Sodium YOGI <=4 mcg/mL: Susceptible Klebsiella pneumoniae Cefazolin YOGI <=1 mcg/mL: Susceptible Klebsiella pneumoniae Cefepime YOGI <=0.5 mcg/mL: Susceptible Klebsiella pneumoniae Nitrofurantoin YOGI <=16 mcg/mL: Susceptible Klebsiella pneumoniae Cefoxitin YOGI <=4 mcg/mL: Susceptible Klebsiella pneumoniae Gentamicin YOGI 1 mcg/mL: Susceptible Klebsiella pneumoniae Imipenem YOGI <=0.25 mcg/mL: Susceptible Klebsiella pneumoniae Levofloxacin YOGI <=1 mcg/mL: Susceptible Klebsiella pneumoniae Meropenem YOGI <=0.125 mcg/mL: Susceptible Klebsiella pneumoniae Tobramycin YOGI 1 mcg/mL: Susceptible Klebsiella pneumoniae Ampicillin/Sulbactam YOGI 4/2 mcg/mL: Susceptible Klebsiella pneumoniae Trimethoprim/Sulfamethoxazole YOGI <=0.5/9.5 mcg/mL: Susceptible Klebsiella pneumoniae Tetracycline YOGI 2 mcg/mL: Susceptible Klebsiella pneumoniae Piperacillin/Tazobactam YOGI 4/4 mcg/mL: Susceptible Klebsiella pneumoniae Ertapenem YOGI <=0.125 mcg/mL: Susceptible Klebsiella pneumoniae Tigecycline YOGI 1 mcg/mL: Susceptible Klebsiella pneumoniae Performing Organization Address City/State/[facility] Ph one Number [facility] DEPARTMENT OF [address] [place] [address] PATHOLOGY AND GENOMIC MEDICINE [address] * Urinalysis screen and microscopy, with reflex to culture (07/08/2019 5:40 PM CDT) Only the most recent of 3 results within the time period is included. Specimen site Clean catch [facility] Color, UA Yellow [facility] Appearance, UA Hazy [facility] Specific 1.010 1.001 - 1.035 [place] gravity, [facility] pH, UA 6.0 5.0 - 8.5 [facility] Protein, UA 1+ (A) Negative [facility] Glucose, UA Negative Negative [facility] Ketones, UA Negative Negative [facility] Bilirubin, UA Negative Negative [facility] Blood, UA Moderate (A) Negative [facility] Nitrite, UA Negative Negative [facility] Urobilinogen, <2.0 <2.0 [facility] Leukocyte Small (A) Negative [place] esterase, [facility] Epithelial 2 /HPF [place] cells, [facility] WBC, UA 93 (H) 0 - 4 /HPF [facility] RBC, UA 1 0 - 5 /HPF [facility] Bacteria, UA Moderate (A) None seen [facility] WBC clumps, UA Few (A) [facility] Yeast, UA None seen [facility] Yeast with None seen [place] [facility] Hyaline casts, 3 /LPF [facility] Specimen Urine Performing Organization Address City/State/Zipcode Ph one Number [facility] DEPARTMENT OF [address] [place] [address] PATHOLOGY AND GENOMIC MEDICINE [address] * Blood culture, aerobic & anaerobic (07/08/2019 4:00 PM CDT) Only the most recent of 2 results within the time period is included. Blood culture Klebsiella pneumoniae [place] isolate Aer/Chery [facility] The performance HOSPITAL characteristics of this assay on this isolate were validated by the Microbiology Laboratory at [facility]. This source has not been approved by the U.S. Food and Drug Administration. The results are not intended to be used as the sole means for clinical diagnosis or patient management. The [facility] is authorized under the clinical Laboratory Improvement Amendments of 1988 (CLIA-88) to perform high complexity testing. (A) Comment: Specimen Information Specimen Source: Blood Specimen Site: Antecubital, right Specimen Blood - Antecubital, right Antibiotic Method Susceptibility Organism Ampicillin YOGI 16 mcg/mL: Resistant Klebsiella pneumoniae Amoxicillin/Clavulanate YOGI <=2/1 mcg/mL: Susceptible Klebsiella pneumoniae Amikacin YOGI <=4 mcg/mL: Susceptible Klebsiella pneumoniae Aztreonam YOGI <=1 mcg/mL: Susceptible Klebsiella pneumoniae Ceftazidime YOGI <=0.5 mcg/mL: Susceptible Klebsiella pneumoniae Ciprofloxacin YOGI <=0.5 mcg/mL: Susceptible Klebsiella pneumoniae Ceftriaxone YOGI <=0.5 mcg/mL: Susceptible Klebsiella pneumoniae Cefuroxime Sodium YOGI <=4 mcg/mL: Susceptible Klebsiella pneumoniae Cefazolin YOGI <=1 mcg/mL: Susceptible Klebsiella pneumoniae Cefepime YOGI <=0.5 mcg/mL: Susceptible Klebsiella pneumoniae Cefoxitin YOGI <=4 mcg/mL: Susceptible Klebsiella pneumoniae Gentamicin YOGI <=0.5 mcg/mL: Susceptible Klebsiella pneumoniae Imipenem YOGI <=0.25 mcg/mL: Susceptible Klebsiella pneumoniae Levofloxacin YOGI <=1 mcg/mL: Susceptible Klebsiella pneumoniae Meropenem YOGI <=0.125 mcg/mL: Susceptible Klebsiella pneumoniae Tobramycin YOGI <=0.5 mcg/mL: Susceptible Klebsiella pneumoniae Ampicillin/Sulbactam YOGI 8/4 mcg/mL: Susceptible Klebsiella pneumoniae Trimethoprim/Sulfamethoxazole YOGI <=0.5/9.5 mcg/mL: Susceptible Klebsiella pneumoniae Tetracycline YOGI <=1 mcg/mL: Susceptible Klebsiella pneumoniae Piperacillin/Tazobactam YOGI 4/4 mcg/mL: Susceptible Klebsiella pneumoniae Ertapenem YOGI <=0.125 mcg/mL: Susceptible Klebsiella pneumoniae Tigecycline YOGI 1 mcg/mL: Susceptible Klebsiella pneumoniae Performing Organization Address [facility] one Number [facility] DEPARTMENT OF [address] [place] [address] PATHOLOGY AND GENOMIC MEDICINE [address] * Lactic acid level (07/08/2019 4:00 PM CDT) Only the most recent of 2 results within the time period is included. Lactic acid 2.3 (H) 0.5 - 2.2 mmol/L [facility] Specimen Blood Performing Organization Address [facility] one Number [facility] DEPARTMENT OF [address] [place] [address] PATHOLOGY AND GENOMIC MEDICINE [address] * D-dimer (06/12/2019 4:08 AM [employer]) Only the most recent of 2 results within the time period is included. D-dimer 1.32 (H) 0.00 - 0.40 ug/mL [place] Comment: FEU CHEONDOISM Units are ug/ml Fibrinogen HOSPITAL Equivalent Unit. When combined with low clinical probability, D-dimer results of less than 0.5 ug/ml FEU have a good negative predictive value in excluding PE or DVT. For D-dimer results greater than 0.5 ug/ml FEU further testing is indicated if PE or DVT is suspected clinically. Elevated D-dimer results have been reported in DVT, PE, and DIC cases and may indicate the presence of a clot. D-dimer results may be elevated due to old age, , inflammatory diseases, trauma, post-operative states, sepsis, and malignancies. Specimen Blood Performing Organization Address [facility] one Number [facility] DEPARTMENT OF [address] [place] [address] PATHOLOGY AND GENOMIC MEDICINE [address] * Reticulocyte count (06/12/2019 4:08 AM [employer]) Pathologist [facility] Retic %, auto 2.5 (H) 0.5 - 2.1 % [facility] Retic absolute, 0.0862 0.0210 - 0.1155 m/uL [place] auto [facility] Specimen Blood Performing Organization Address City/State/[facility] one Number [facility] DEPARTMENT OF [address] [place] [address] PATHOLOGY AND GENOMIC MEDICINE [address] * Folate level (06/12/2019 4:00 AM [employer]) [facility] Folate 9.3 4.8 - 24.2 ng/mL [facility] Specimen Serum Performing Organization Address City/[facility] one Number [facility] DEPARTMENT OF [address] [place] [address] PATHOLOGY AND GENOMIC MEDICINE [address] * Ferritin level (06/12/2019 4:00 AM [employer]) [facility] Ferritin level 51 13 - 150 ng/mL [facility] Specimen Plasma specimen Performing Organization Address City/[facility] Ph one Number [facility] DEPARTMENT OF [address] [place] [address] PATHOLOGY AND GENOMIC MEDICINE [address] * Vitamin B12 level (06/12/2019 4:00 AM [employer]) [facility] Vitamin B12 554 211 - 946 pg/mL [place] Comment: CHEONDOISM Significant overlap exists HOSPITAL between normal and deficiency states. However, most patients with deficiencies will have Serum B12 <200 pg/mL. Specimen Serum Performing Organization Address City/[facility] one Number [facility] DEPARTMENT OF [address] [place] [address] PATHOLOGY AND GENOMIC MEDICINE [address] * Cytology (non-gynecological) request (06/11/2019 12:43 PM [employer]) [facility] DEPARTMENT OF PATHOLOGY AND GENOMIC MEDICINE Cytology See link below for PDF Lab [facility] DEPART MENT (non-gynecologi Report OF PATHOLOGY tara) report AND GENOMIC MEDICINE Result status This is Final Report for [facility] DEPARTME NT [id number] OF PATHOLOGY AND GENOMIC MEDICINE Specimen Performing Organization Address City/[facility] Ph one Number [facility] DEPARTMENT OF [address] [place] [address] PATHOLOGY AND GENOMIC MEDICINE * XR Chest 2 Vw (06/04/2019 6:38 PM [employer]) Only the most recent of 2 results within the time period is included. Specimen Narrative Performed At EXAMINATION: XR CHEST 2 VW [facility] CLINICAL HISTORY: hx pancreatic cance r COMPARISON: Chest x-ray 02/21/2019 IMPRESSION: Frontal and lateral views r eveal a stable cardiomediastinal silhouette with right-sided Port-A-Cath in place. Left basilar opacification has developed concerning for pneumonia and/ or effusion. Right hemithorax is clear. The remainder of the examination is unchanged. [facility][id number] Procedure Note Interface, Radiology Results Incoming - 06/04/2019 6:47 PM [employer] EXAMINATION: XR CHEST 2 VW CLINICAL HISTORY: hx pancreatic cancer COMPARISON: Chest x-ray 02/21/2019 IMPRESSION: Frontal and lateral views reveal a stable cardiomediastinal silhouette with right-sided Port-A-Cath in place. Left basilar opacification has developed concerning for pneumonia and/or effusion. Right hemithorax is clear. The remainder of the examination is unchanged. [facility]-[id number] Performing Organization Address [facility] one Number [facility] [address] [place] [address] * Troponin (06/01/2019 3:50 AM [employer]) Only the most recent of 2 results within the time period is included. Troponin 0.011 0.000 - 0.040 ng/mL [place] Comment: CHEONDOISM In patients suspected of HOSPITAL having a myocardial infarction, along with all other appropriate clinical measures and actions including ECG and other diagnostics as appropriate, measure Ultra TnI at 0 hrs and at 3 hrs. Myocardial infarction VERY LIKELY The 0 hr TnI level is > 0.10 ng/mL Myocardial infarction LIKELY The 0 hr TnI level is > 0.04 ng/mL and 3 hr level is increased or decreased by at least 0.020 ng/mL Myocardial infarction VERY UNLIKELY Both the 0 hr and 3 hr TnI levels <= 0.04 ng/mL(within normal limits) OR 0 hr is > 0.04 ng/mL and 3 hr is increased OR decreased by less than 0.020 ng/mL Specimen Plasma specimen Performing Organization Address City/State/Zipcode Ph one Number [facility] DEPARTMENT OF [address] [place] [address] PATHOLOGY AND GENOMIC MEDICINE [place] CHEONDOISM [address] [place] [address] * Echocardiogram complete w contrast and 3D if needed (05/31/2019 4:30 PM [employer]) Specimen Narrative Performed At [facility] Echo cardiography Report [address] [place] [address], [facility] [address], [place] [address] Pat.Name: LUNA PARDO Pat.ID: [id number] .Date: 05/31/2019 Refer.MD: FERMIN BANERJEE MD Exam Time: 3:12:00 PM Study Type:Routine Echo Height: 62in Weight: 86lb BSA: 1.34 m2 Age: 8 1940,78Y Sex: FEMALE BP: 92/54 HR: 71 bpm Sonogrphr: JENNIFER Silva Pat. Stat.:Inpatient Room: [facility] Study Status:Final Echo Event ID:[id number] Order ID: [id number] Reason for Study:HF Procedures: 2D Echo, Colorflow Doppler, Strain, Intravenous Lumason Contrast SUMMARY: LVEF is Diastolic dysfunction Grade I (Mild): I mpaired relaxation with normal LV filling pressures. No hemodynamically significant valvular abnormalities. FINDINGS: LV: LV size is normal. Concent monique left ventricular remodeling. Normal average LV globa l longitudinal strain at -19%. LV EF is normal. Overall wall motion is normal. Estimated EF is 50-54%. Septal motion i s paradoxical secondary to LBBB or conduction abnormality. RV: RV size is normal. RV syst olic function is normal. LA: LA volume is normal. RA: RA size is normal. AO: Aortic root diameter is no t well visualized. VALENTE: No pericardial effusion. AV: Focal calcification of AV leaflets. MV: No structural MV abnormali ties noted. Mild mitral regurgitation. PV: Pulmonic valve not well se en. TV: No structural TV abnormali ties noted. [place]: Diastolic dysfunction Grade I (Mild): Impaired relaxation with normal LV filling pressures. Other: Insufficient TR jet to efrain mate PA systolic pressure. MEASUREMENTS: 2D Parasternal Long [place] IVSd 0.66 cm LA Ds 2.9 cm LVIDd 4.1 cm Index 3.1 cm/m2 RWT 0.44 LVIDs 2.7 cm LV Mass 94 g (87-129) LV%fs 34 % LVM Index 70 g/m LVPWd 0.9 cm LVOT 2.1 cm LA Sng Plane LA Area 14 cm (8.8-2 3.4) LA Vol 38 ml Index 28 ml/m2 LA LngAx 4.1 cm LVOT LVOT Area 3.4 cm DOPPLER LVOT Stroke Vol LVOT TVI 16 cm HR 58 bpm LVOT LVOT SV 54 ml LVOT CO 3.1 l/min SVi 41 ml/m LVOT CI 2.3 l/m/m Signed 06/01/2019 10:03 PM Dc Cheney M.D. Procedure Note Interface, Radiology Results In - 06/01/2019 10:06 PM [facility] Echocardiography Report [address] [place] [address] Pat.Name: LUNA PARDO Pat.ID: [id number] .Date: 05/31/2019 Refer.MD: FERMIN BANERJEE MD Exam Time: 3:12:00 PM Study Type:Routine Echo Height: 62in Weight: 86lb BSA: 1.34 m2 Age: 8 1940,78Y Sex: FEMALE BP: 92/54 HR: 71 bpm Sonogrphr: JENNIFER Silva Pat. Stat.:Inpatient Room: [facility] Study Status:Final Echo Event ID:[id number] Order ID: [id number] Reason for Study:HF Procedures: 2D Echo, Colorflow Doppler, Strain, Intravenous Lumason Contrast SUMMARY: LVEF is Diastolic dysfunction Grade I (Mild): Impaired relaxation with normal LV filling pressures. No hemodynamically significant valvular abnormalities. FINDINGS: LV: LV size is normal. Concentric left ventricular remodeling. Normal average LV global longitudinal strain at -19%. LV EF is normal. Overall wall motion is normal. Estimated EF is 50-54%. Septal motion is paradoxical secondary to LBBB or conduction abnormality. RV: RV size is normal. RV systolic function is normal. LA: LA volume is normal. RA: RA size is normal. AO: Aortic root diameter is not well visualized. VALENTE: No pericardial effusion. AV: Focal calcification of AV leaflets. MV: No structural MV abnormalities noted. Mild mitral regurgitation. PV: Pulmonic valve not well seen. TV: No structural TV abnormalities noted. [place]: Diastolic dysfunction Grade I (Mild): Impaired relaxation with normal LV filling pressures. Other: Insufficient TR jet to estimate PA systolic pressure. MEASUREMENTS: 2D Parasternal Long [place] IVSd 0.66 cm LA Ds 2.9 cm LVIDd 4.1 cm Index 3.1 cm/m2 RWT 0.44 LVIDs 2.7 cm LV Mass 94 g (87-129) LV%fs 34 % LVM Index 70 g/m LVPWd 0.9 cm LVOT 2.1 cm LA Sng Plane LA Area 14 cm (8.8-23.4) LA Vol 38 ml Index 28 ml/m2 LA LngAx 4.1 cm LVOT LVOT Area 3.4 cm DOPPLER LVOT Stroke Vol LVOT TVI 16 cm HR 58 bpm LVOT LVOT SV 54 ml LVOT CO 3.1 l/min SVi 41 ml/m LVOT CI 2.3 l/m/m Signed 06/01/2019 10:03 PM Dc Cheney M.D. Performing Organization Address City/State/[facility] Ph one Number [facility] [address] [place] [address] * CT Abdomen Pelvis W Contrast (05/30/2019 9:29 PM [employer]) Specimen Narrative Performed At EXAMINATION: CT ABDOMEN PELVIS W CONTRAST TEOFILO WILLETT CLINICAL HISTORY: 78 yearsFemale Abd pa in unspecified, nausea TECHNIQUE: Multiple axial images of the abdomen and pelvis were obtained following intravenous administration of iodinated contrast. Sagittal and coronal computerized reformatted images were al so obtained. CT imaging was performed with iterative reconstruction techniques and/or automa justin exposure control to reduce radiation dose. COMPARISON: 03/21/2019 IMPRESSION: LUNG BASES: Moderate to severe emphysematous change s are present at the lung bases. Stable airspace opacity in the medial left karen g base (series 2 image 7). No acute consolidations or effusions. ABDOMEN: Liver: There is asymmetric enhancement of the liver without evidence of focal hepatic mass. Gallbladder/Biliary: Gallstones are pre sent in the dependent gallbladder. There is no evidence of intra or extrahepatic biliary ductal dilatation. Spleen: The spleen is not enlarged. No focal splenic mass. The splenic vein is thrombosed and there is a dilated gastr oepiploic collateral. Pancreas: There is a ill-defined hypoen hancing mass involving the pancreatic neck and body with encasement of the he patic and superior mesenteric arteries. Cystic changes are present in the pancr eatic body and tail with a 4.9 x 2.7 cm cyst. The superior mesenteric vein and portal mesenteric c onfluence are obstructed. Collateral vessels are noted about the pancreatic head. Adrenal Glands: The adrenal glands are unremarkable. Kidneys: A 4 mm calculus is present in the lower pole of the right kidney. There are several scattered tiny bilateral re nal cysts, the largest is in the lower pole of the right kidney and measures 1 .5 cm. There are no suspicious renal masses. Vascular: The abdominal aorta is diffus salena atherosclerotic with mild ectasia of the distal abdominal aorta. Hepatic and splenic arteries have separate origins. Moderate atherosclerotic changes are pr esent at the origin of the right renal artery. There are postoperative changes related to bi lateral iliac artery stenting. There is evidence of an AV fistula on the left w ith contrast opacification of the internal iliac and left gonadal veins. Nodes: A mesenteric vein near the emilie l mesenteric confluence is obstructed. Bowel: Diverticular changes are present in the sigmoid colon. There is no evidence of acute diverticulitis. There is no evidence of an estimate no obstruction or free intraperitoneal air . A small hiatal hernia. Ascites/fluid collections: No ascites o r fluid collections. PELVIS: Status post hysterectomy. There is no e vidence of pelvic mass, fluid collection, or pelvic lymphadenopathy. MUSCULOSKELETAL: Regional skeletal structures are slight ly osteopenic. There are no suspicious bony abnormalities. 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 Thrombosed splenic vein. 2.Moderate to severe COPD. 3.Small hiatal hernia. 4.Cholelithiasis. 5.Lower pole right calyceal calculus. B enign renal cysts. 6.Extensive atherosclerotic disease wit h bilateral iliac stents. AV fistula on the left. 7.Colonic diverticulosis without eviden ce of diverticulitis. 8.Status post hysterectomy. [facility]-[id number] Procedure Note Hm Interface, Radiology Results Incoming - 05/30/2019 10:00 PM [employer] EXAMINATION: CT ABDOMEN PELVIS W CONTRAST CLINICAL HISTORY: 78 yearsFemale Abd pain unspecified, nausea TECHNIQUE: Multiple axial images of the abdomen and pelvis were obtained following intravenous administration of iodinated contrast. Sagittal and coronal computerized reformatted images were also obtained. CT imaging was performed with iterative reconstruction techniques and/or automated exposure control to reduce radiation dose. COMPARISON: 03/21/2019 IMPRESSION: LUNG BASES: Moderate to severe emphysematous changes are present at the lung bases. Stable airspace opacity in the medial left lung base (series 2 image 7). No acute consolidations or effusions. ABDOMEN: Liver: There is asymmetric enhancement of the liver without evidence of focal hepatic mass. Gallbladder/Biliary: Gallstones are present in the dependent gallbladder. There is no evidence of intra or extrahepatic biliary ductal dilatation. Spleen: The spleen is not enlarged. No focal splenic mass. The splenic vein is thrombosed and there is a dilated gastroepiploic collateral. Pancreas: There is a ill-defined hypoenhancing mass involving the pancreatic neck and body with encasement of the hepatic and superior mesenteric arteries. Cystic changes are present in the pancreatic body and tail with a 4.9 x 2.7 cm cyst. The superior mesenteric vein and portal mesenteric confluence are obstructed. Collateral vessels are noted about the pancreatic head. Adrenal Glands: The adrenal glands are unremarkable. Kidneys: A 4 mm calculus is present in the lower pole of the right kidney. There are several scattered tiny bilateral renal cysts, the largest is in the lower pole of the right kidney and measures 1.5 cm. There are no suspicious renal masses. Vascular: The abdominal aorta is diffusely atherosclerotic with mild ectasia of the distal abdominal aorta. Hepatic and splenic arteries have separate origins. Moderate atherosclerotic changes are present at the origin of the right renal artery. There are postoperative changes related to bilateral iliac artery stenting. There is evidence of an AV fistula on the left with contrast opacification of the internal iliac and left gonadal veins. Nodes: A mesenteric vein near the portal mesenteric confluence is obstructed. Bowel: Diverticular changes are present in the sigmoid colon. There is no evidence of acute diverticulitis. There is no evidence of an estimate no obstruction or free intraperitoneal air. A small hiatal hernia. Ascites/fluid collections: No ascites or fluid collections. PELVIS: Status post hysterectomy. There is no evidence of pelvic mass, fluid collection, or pelvic lymphadenopathy. MUSCULOSKELETAL: Regional skeletal structures are slightly osteopenic. There are no suspicious bony abnormalities. 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 Thrombosed splenic vein. 2.Moderate to severe COPD. 3.Small hiatal hernia. 4.Cholelithiasis. 5.Lower pole right calyceal calculus. Be nign renal cysts. 6.Extensive atherosclerotic disease with bilateral iliac stents. AV fistula on the left. 7.Colonic diverticulosis without evidenc e of diverticulitis. 8.Status post hysterectomy. [facility]-[id number] Performing Organization Address City/[facility] [place] [place] [address] * Lipase level (05/30/2019 3:28 PM [employer]) Only the most recent of 3 results within the time period is included. Lipase 10 (L) 13 - 60 U/L [facility] Specimen Plasma specimen Performing Organization Address [facility] Ph one Number [facility] DEPARTMENT OF [address] [place] [address] PATHOLOGY AND GENOMIC MEDICINE [address] * CT Abdomen W Wo Contrast (03/21/2019 4:34 PM [employer]) Specimen Narrative Performed At EXAMINATION: CT ABDOMEN W WO CONTRAST [facility] CLINICAL HISTORY: C25.1 Malignant sweta plasm of body of pancreas, Pancreatic malignant neoplasm COMPARISON: Serial CTs most recently February 08, 2019. TECHNIQUE: CT of the abdomen with and without intravenous contrast. CT imaging was performed with iterative reconstruc tion techniques and/or automated exposure control to reduce radiation dose. FINDINGS: LOWER THORAX: Normal. HEPATOBILIARY: No focal hepatic lesio ns. No biliary ductal dilation. Gallstones present without evidence of cholecystitis. SPLEEN: No splenomegaly. PANCREAS: There is a hypoenhancing panc reatic mass/adenocarcinoma at the level of the pancreatic neck measuring 2.2 x 2.7 x 1.9 cm, which has slightly increased in size compared with prior s angeldy. On exam of 02/08/2019, the mass measured 1.9 x 2.5 x 1.9 cm. There is persistent marked dilation of the central pancreatic duct in the pancreatic tail with pancreatic parench ymal atrophy. There is encasement and severe narrowing of the proximal portio n of the main portal vein and portosplenic confluence by the pancreatic mass, similar to prior. Ther e is encasement of the distal celiac trunk and proximal portion of the commo n hepatic and left gastric artery by tumor. ADRENALS: No adrenal nodules. KIDNEYS: 4 mm right nephrolithiasis. Bilateral renal cysts. Prominent renal pelvis is again noted. No hydronephrosi s or solid mass. GI TRACT: Visualized portions of the bowel demonstrate no distention or wall thickening. PERITONEUM/RETROPERITONEUM: No lympha denopathy or ascites. VASCULATURE: Abdominal aorta with marke d atherosclerotic disease is nonaneurysmal. Bilateral iliac grafts a re noted. BONES AND SOFT TISSUES: Bones are dif fusely demineralized. No destructive osseous lesion is identified. Mild spon dylosis. IMPRESSION: 1.Mild interval progression of locally advanced pancreatic tumor as detailed above. 2.No evidence of metastatic disease in the abdomen. [facility]-[id number] Dictated and approved by radiology resi dent/fellow: Sahil Newberry M.D. I, Joseph Dominguez MD, personally revie wed the images and resident's/fellow's findings and agree with the final repor t. Procedure Note [facility], Radiology Results Incoming - 03/21/2019 6:00 PM [employer] EXAMINATION: CT ABDOMEN W WO CONTRAST CLINICAL HISTORY: C25.1 Malignant neoplasm of body of pancreas, Pancreatic malignant neoplasm COMPARISON: Serial CTs most recently February 08, 2019. TECHNIQUE: CT of the abdomen with and without intravenous contrast. CT imaging was performed with iterative reconstruction techniques and/or automated exposure control to reduce radiation dose. FINDINGS: LOWER THORAX: Normal. HEPATOBILIARY: No focal hepatic lesions. No biliary ductal dilation. Gallstones present without evidence of cholecystitis. SPLEEN: No splenomegaly. PANCREAS: There is a hypoenhancing pancreatic mass/adenocarcinoma at the level of the pancreatic neck measuring 2.2 x 2.7 x 1.9 cm, which has slightly increased in size compared with prior study. On exam of 02/08/2019, the mass measured 1.9 x 2.5 x 1.9 cm. There is persistent marked dilation of the central pancreatic duct in the pancreatic tail with pancreatic parenchymal atrophy. There is encasement and severe narrowing of the proximal portion of the main portal vein and portosplenic confluence by the pancreatic mass, similar to prior. There is encasement of the distal celiac trunk and proximal portion of the common hepatic and left gastric artery by tumor. ADRENALS: No adrenal nodules. KIDNEYS: 4 mm right nephrolithiasis. Bilateral renal cysts. Prominent renal pelvis is again noted. No hydronephrosis or solid mass. GI TRACT: Visualized portions of the bowel demonstrate no distention or wall thickening. PERITONEUM/RETROPERITONEUM: No lymphadenopathy or ascites. VASCULATURE: Abdominal aorta with marked atherosclerotic disease is nonaneurysmal. Bilateral iliac grafts are noted. BONES AND SOFT TISSUES: Bones are diffusely demineralized. No destructive osseous lesion is identified. Mild spondylosis. IMPRESSION: 1.Mild interval progression of locally a dvanced pancreatic tumor as detailed above. 2.No evidence of metastatic disease in t he abdomen. [facility]-[id number] Dictated and approved by vice president of consulting services/fellow: Sahil Newberry M.D. I, Joseph Dominguez MD, personally reviewed the images and resident's/fellow's findings and agree with the final report. Performing Organization Address [facility] Ph one Number [facility] [address] [place] [address] * Amylase level (03/19/2019 1:48 PM [employer]) Only the most recent of 2 results within the time period is included. Amylase 26 (L) 28 - 100 U/L [facility] Specimen Plasma specimen Performing Organization Address [place]/[facility] Ph one Number [facility] DEPARTMENT OF [address] [place] [id number] PATHOLOGY AND GENOMIC MEDICINE [address] * Gram stain (02/21/2019 2:00 PM CDT) Gram stain Rare WBC's [place] result No organisms seen [facility] Comment: HOSPITAL Specimen Information Specimen Source: Urine Specimen Site: Clean catch Specimen Urine Performing Organization Address City/State/Zipcode Ph one Number [facility] DEPARTMENT OF [address] [place] [address] PATHOLOGY AND GENOMIC MEDICINE [place] [facility] [address] [place] [address] HOSPITAL after 09/20/2018 Insurance Type Payer Benefit Subscriber ID Effective Phone Address Plan / Dates Group Medicare MEDICARE MEDICARE xxxxxxxxxxx [id number] [place], PART A AND resent [place] B Commercial BCBS COMMERCIAL BCBS xxxxxxxxxxxx 2010-P MEDICARE resent SUPPLEMENT [id number] Advance Directives For more information, please contact: [phone] Date Inactivated Comments Code Status Date Activated 07/12/2019 6:32 PM Full Code 07/08/2019 2:14 PM Code Status decision reached by: Patient 09/25/2016 6:35 PM Full Code 09/23/2016 2:29 PM Code Status decision reached by: Patient
--- OUTSIDE RECORDS SUMMARY | 2019-09-21 19:14 | XMS REPORT ---
Author Author [facility] t Organization [facility] Address [address] [place] [address] Phone Unavailable Care Team Providers Care Customer Retention Representative Name Role Phone LISA BARRIENTOS, (NS) CURT PCP Sebastian BARRIENTOS, Que Camp Attphys Polly [facility], Gabriella Attphys Unavailable Nisha LAM, Maricruz Attphys Unavailable Tad LAM, Hero Vital Attphys Unavailable Lai CRAWFORD, Kenya Attphys Unavailable Reji RN, Charley Attphys Unavailable Edgar BARRIENTOS, B. Que Attphys Cesar FLORES, Dyana Attphys Unavailable Bret LAM, Jose Tinna Attphys Unavailable Remy yesica [facility], Lyla Attphys Unavailable Slade BARRIENTOS, Mari Attphys Rachel [facility], Maricruz Attphys Unavailable Kirill BARRIENTOS, Saqib Gates Attphys Megha BARRIENTOS, Fermin Attphys Dorene BARRIENTOS, Humphrey Mills Attphys Burke BARRIENTOS, Chris Attphys Bjorn BARRIENTOS, William Huizar Attphys Scott MERCADO, Mg Buchanan Attphys [phone] Fanny LAM, Allie Attphys Unavailable Patti LAM, Ailyn Attphys Unavailable DUCHAMP, A BUFFY Attphys Unavailable Tracee STARR, Ai Attphys Unavailable Sandra FLORES, Helen Attphys Unavailable SLADE, MARI Admphys Unavailable MEGHA, FERMIN Admphys Unavailable Payers Payer Name Policy Type Policy Number Effective Date Expiration Date S lloyd MEDICAREMEDICARE PART A AND Bxxxxxxxxxxx8-PresentHOUNguyen [place]Medicare xxxxxxxxxxx 2003 00:00:00 [facility] BCBS COMMERCIALBCBS MEDICARE SUPPLEMENTxxxxxxxxxxxx2010- PresentCommercial xxxxxxxxxxxx 2010 00:00:00 [facility] [id number] 2010 00:00:00 [facility] Medicare A & B [id number] 2003 00:00:00 [facility] [id number] 2010 00:00:00 [facility] Medicare A & B [id number] 2003 00:00:00 [facility] Medicare A & B [id number] 2019 00:00:00 [facility] [id number] 2019 00:00:00 [facility] Medicare A & B [id number] 2003 00:00:00 [facility] [id number] 2003 00:00:00 [facility] Medicare A & B [id number] 2003 00:00:00 [facility] [id number] 2003 00:00:00 [facility] [id number] 2003 00:00:00 [facility] Medicare A & B [id number] 2003 00:00:00 [facility] [id number] 2010 00:00:00 [facility] Medicare A & B [id number] 2003 00:00:00 [facility] Problems Condition Name Condition Details Condition Category Status Onset Date Resolution Date Last Treatment Date Treating Clinician Comments Source Rectal mass Rectal mass Disease Active 2019-08-21 00:00:00 Shin Deal Anemia Anemia Disease Active 2019-08-21 00:00:00 Shin Deal Sepsis Sepsis Disease Active 2019-07-12 00:00:00 Shin Deal Bacteremia Bacteremia Disease Active 2019-07-12 00:00:00 Shin Deal Acute pyelonephritis Acute pyelonephritis Disease Active 00:00:00 Shin Deal Klebsiella infection Klebsiella infection Disease Active 00:00:00 Shin Deal Hypotension Hypotension Disease Active 2019-07-08 00:00:00 Shin Deal 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 Active 2019-07-01 00:00:00 Shin Deal Acute cystitis without hematuria Acute cystitis without hematuri a Disease Active 2019-05-31 00:00:00 Andrea Deal Depression Depression Disease Active 2017-10-20 00:00:00 Shin Deal Flu Flu Disease Active 2017-05-24 00:00:00 Shin Deal COPD (chronic obstructive pulmonary disease) COPD (chr onic obstructive pulmonary disease) Disease Active 2016-09-24 00:00:00 Laya Deal Coronary arteriosclerosis Coronary arteriosclerosis Disease Ac tive 2016-09-24 00:00:00 Overview: stent in coronary yrs back Shin Deal Essential hypertension Essential hypertension Disease Active 2016-09-24 00:00:[address] Pancreatitis Pancreatitis Disease Active 2016-09-23 00:00:00 Shin Deal Ischemic cardiomyopathy Ischemic cardiomyopathy Disease Active 2016-09-19 00:00:[address] Malignant neoplasm of body of pancreas Malignant neoplasm of body of pancreas Disease Active 2016-09-19 00:00:00 Shin Deal Diverticulitis Diverticulitis Disease Active 2016-07-20 00:00:00 Shni Deal Hyperlipidemia Hyperlipidemia Disease Active 2016-07-20 00:00:00 Shin Deal PVD (peripheral vascular disease) PVD (peripheral vascular disea se) Disease Active 2015-05-01 00:00:00 Overview: stent in legs Shin [facility] Allergies, Adverse Reactions, Alerts Allergy Name Allergy Type Status Severity Reaction(s) Onset Date Inacti ve Date Treating Clinician Comments Source Levofloxacin Allergy to Substance Active Unknown UNK 2019-07-03 00:00: 00 [facility] Levofloxacin Propensity to adverse reactions to drug Active Anaphylaxis 2019-05-31 00:00:00 Shin figueroa Ciprofloxacin Propensity to adverse reactions to drug Active Anaphylaxis, Swelling, GI Intolerance 2016-06-29 00:00:00 Nausea/vo miting Shin Deal Codeine Propensity to adverse reactions to drug Active Swelling 2016-06-29 00:00:00 Shin Calderon t Penicillins Propensity to adverse reactions to drug Active Shortness Of Breath 2016-06-29 00:00:00 Shin Deal Sulfa (Sulfonamide Antibiotics) Propensity to adverse reactions to drug Active Anaphylaxis 2016-06-29 00:00:00 Julia Deal Sulfa (Sulfonamide Antibiotics) Allergy to Substance Active Unkno wn 2016-05-30 00:00:00 [facility] Codeine Allergy to Substance Active Unknown 2016-05-30 00:00:00 [facility] Ciprofloxacin Allergy to Substance Active Unknown 2016-05-30 00:00 :00 [facility] penicillin Allergy to Substance Active Unknown SWELLING 2016-05-30 00:0 0:00 [facility] Family History Family Member Diagnosis Comments Start Date Stop Date Source Natural father Heart disease [place] Natural mother Heart disease [facility] [place] Social History Social Habit Start Date Stop Date Quantity Comments Source History of tobacco use Cigarette Smoker [place] Sex Assigned At Laya stoandrea Rastafari Exposure to SARS-CoV-2 (event) Not sure Shin Deal Alcohol intake 2019-08-21 00:00:00 2019-08-21 00:00:00 Current drinker of alcohol (finding) Shin Deal Alcohol Comment 2016-06-29 00:00:00 2016-06-29 00:00:00 occ Shin Deal Smoking Status Start Date Stop Date Source Former smoker 2019-08-21 00:00:00 2019-08-21 00:00:00 Shin Deal Medications Ordered Medication Name Filled Medication Name Start Date Stop Da te Current Medication? Ordering Clinician Indication Dosage Frequency Signature (SIG) Comments Components Source HYDROcodone-acetaminophen (Benavides) 10-325 mg per tablet 2019-09-21 00:00:00 2019-10-22 23:59:00 Yes chronic pain 1{tbl} Q4H Jay Jay e 1 tablet by mouth every 4 (four) hours as needed for moderate pain for up to 100 doses .chronic pain, pain. Max Daily Amount: 6 tablets Dannie Deal OLANZapine (ZYPREXA) 2.5 MG tablet 2019-09-20 00:00:00 Yes TAKE 1 TABLET(2.5 MG) BY MOUTH EVERY NIGHT FOR UP TO 4 DAYS NEEDED FOR NAUSEA Shin Deal pancrelipase, jankis-jdmdtlbp-kkoihhw, ( CREON) 6,000-19,000 -30,000 unit capsule,delayed release(DR/EC) capsule 2019-09-02 00:00:00 2 23:59:00 Yes 2{capsule} Q.[id number] Ta ke 2 capsules by mouth 3 (three) times a day with meals. Shin roblero potassium chloride (KLOR-CON) 10 MEQ CR tablet 2 00:00:00 2020-08-21 23:59:00 Yes 10meq Q.5D Take 1 tablet (10 mEq total) by mouth 2 (two) times a day. Shin Deal potassium chloride (KLOR-CON) 10 MEQ CR tablet 2 00:00:00 2019-08-22 00:00:00 No 10meq Q.5D Take 1 tablet (10 mEq total) by mouth 2 (two) times a day. Shin Deal aspirin (ECOTRIN) 81 MG enteric coated tablet 2019-08-19 15:30:4 0 Yes 81mg QD Take 81 mg by mouth nightly. Shin Deal acetaminophen (TYLENOL) 500 MG tablet 2019-08-19 15:30:40 Y es 500mg Q6H Take 500 mg by mouth every 6 (six) hours as needed for mild pain. Shin Deal hyoscyamine (LEVSIN) 0.125 mg tablet 2019-08-19 15:30:40 Ye s .125mg Q4H Take 0.125 mg by mouth every 4 (four) hours as needed for cramping. Shin Deal potassium chloride (K-DUR) CR tablet 40 mEq 2019 09:30:00 2019-08-19 10:02:00 No Malignant neoplasm of body of pancreas (HCC) 40meq Shin [place] pantoprazole (Protonix) 40 MG EC tablet 00:00:00 2020-08-14 23:59:00 Yes 40mg QD Take 1 tablet (40 mg total) by mouth daily. Shin Deal azithromycin (Zithromax) 250 MG tablet 2019-07-31 6 00:00:00 2019-08-19 23:59:00 No Malignant neoplasm of body of pancreas (HCC) 25 0mg QD Take 1 tablet (250 mg total) by mouth daily for 4 days. Take 2 tablets the first day, then 1 tablet daily for 4 days. Shin Deal pancrelipase, kcwzos-zhhmbfks-ozutgqy, ( CREON) 6,000-19,000 -30,000 unit capsule,delayed release(DR/EC) capsule 2019-08-06 00:00:00 2 00:00:00 No 1{capsule} Q.[id number] Ta ke 1 capsule by mouth 3 (three) times a day with meals. [place] diphenoxylate-atropine (LomotiL) 2.5-0.025 mg per tablet 2019-08-02 00:00:00 2019-09-01 23:59:00 No 1{tbl} Q.25D Take 1 tablet by mouth 4 (four) times a day as needed for diarrhea for up to 30 days. Shin Deal pantoprazole (Protonix) 40 MG EC tablet 00:00:00 2019-08-15 00:00:00 No 40mg QD Take 1 tablet (40 mg total) by mouth daily. Shin Deal baclofen 5 mg tablet 2019-08-02 00:00:00 2019-08-12 23:59:00 No 5mg Q.[id number] Take 5 mg by mouth 3 (three) times a day for 10 days. Shin [place] potassium chloride (K-DUR) CR tablet 20 mEq 2019 10:30:00 2019-07-29 11:00:00 No Hypokalemia 20meq Laya amaya Deal diphenoxylate-atropine (LomotiL) 2.5-0.025 mg per tablet 2019-07-18 00:00:00 2019-07-28 23:59:00 No 1{tbl} Q.25D Take 1 tablet by mouth 4 (four) times a day as needed for diarrhea for up to 10 days. Shin [place] potassium chloride 20 mEq in 100 mL IVPB (FOR CENTRAL LINE O NLY) 2019-07-17 12:00:00 2019-07-17 11:33:38 No 20meq Q.[id number] [place] potassium chloride 20 mEq in 100 mL IVPB (FOR CENTRAL LINE O NLY) 2019-07-17 12:00:00 2019-07-17 11:33:38 No 20meq Q.[id number] [place] potassium chloride 20 mEq in 100 mL IVPB (FOR CENTRAL LINE O NLY) 2019-07-17 12:00:00 2019-07-17 14:55:00 No 20meq Q.[id number] Shin [place] OLANZapine (ZYPREXA) 2.5 MG tablet 2019-07-17 00:00:00 202 00:00:00 No TAKE 1 TABLET(2. 5 MG) BY MOUTH EVERY NIGHT FOR UP TO 4 DAYS NEEDED FOR NAUSEA [place] cephalexin (KEFLEX) 500 MG capsule 2019-07-13 00:00:00 23:59:00 No 500mg Q.[id number] Take 1 ca psule (500 mg total) by mouth 3 (three) times a day for 6 days. Shin roblero sacubitril-valsartan (ENTRESTO) 24-26 mg tablet per tablet 2019-07-12 14:31:22 2019-07-12 00:00:00 No 1{tbl} Q2D Take 1 table t by mouth every other day. Shin Deal morPHINE immediate-release 15 MG tablet 00:00:00 2019-08-12 23:59:00 No chronic pain 15mg Q4H Take 1 table t (15 mg total) by mouth every 4 (four) hours as needed for severe pain for up to 100 doses .chronic pain. Max Daily Amount: 90 mg Shin [place] Lactobacillus acidoph-L.bulgar (FLORANEX) 1 million cell tab let 2019-07-12 00:00:00 2019-08-11 23:59:00 No 1{tbl} Q.[id number] Take 1 tablet by mouth 3 (three) times a day for 30 days. Shin [place] potassium chloride 20 mEq in 100 mL IVPB (FOR CENTRAL LINE O NLY) 2019-07-08 10:15:00 2019-07-08 12:21:00 No Hypokalemia 20meq Q.[id number] [facility] [place] Hyoscyamine Sulfate (Levsin) 0.125 Mg Tablet Hyoscyami ne Sulfate (Levsin) 0.125 Mg Tablet 2019-07-05 00:00:00 Yes Vincent Dwyer Md 1 Three Times A Day [facility] OLANZapine (ZyPREXA) 2.5 MG tablet 2019-07-02 00:00:00 00:00:00 No 2.5mg QD Take 1 tablet (2 .5 mg total) by mouth nightly as needed (nausea) for up to 4 days. [place] pantoprazole (PROTONIX) 20 MG EC tablet 00:00:00 2019-07-31 23:59:00 No 20mg QD Take 1 tablet (20 mg total) by mouth daily for 30 days. Shin Deal promethazine (PHENERGAN) 25 MG suppository 06-30 00:00:00 2019-07-31 23:59:00 No 25mg Q6H Insert 1 suppo sitory (25 mg total) into the rectum every 6 (six) hours as needed for nausea or vomiting for up to 30 days. [place] Metoclopramide Hcl (Reglan) 10 Mg Tablet Metoclopramid e Hcl (Reglan) 10 Mg Tablet 2019-06-29 00:00:00 Yes Shamar Mcfadden Md 10 Every 8 Hours as needed for Nausea And Vomiting [facility] dronabinoL (MARINOL) 2.5 MG capsule 2019-06-25 00:00:0 0 2019-07-25 23:59:00 No 2.5mg Q.5D Take 1 capsule (2.5 mg total) by mouth 2 (two) times a day before meals for 30 days. Shin Deal traMADol (ULTRAM) 50 mg tablet 2019-06-18 00:00:00 2019-06-30 8 23:59:00 No chronic pain 50mg Q6H Take 1 tablet (50 mg total) by mouth every 6 (six) hours as needed for moderate pain for up to 90 doses .chronic pain. Shin Deal promethazine (PHENERGAN) 12.5 MG tablet 00:00:00 2019-07-01 00:00:00 No 12.5mg Q6H Take 1 tablet (12.5 mg total) by mouth every 6 (six) hours as needed for nausea or vomiting for up to 30 days. Shin Deal ondansetron ODT (ZOFRAN-ODT) 8 MG disintegrating tablet 2019-06-13 17:04:38 2019-06-13 00:00:00 No 8mg Q8H Take 8 mg by mouth every 8 (eight) hours as needed for nausea or vomiting. Shin Garcia ethodist docusate sodium (COLACE) 100 MG capsule 00:00:00 2019-07-13 23:59:00 No 100mg Q.5D Take 1 capsule (100 mg total) by mouth 2 (two) times a day for 30 days. Shin Deal simethicone (MYLICON) 80 MG chewable tablet 2019 00:00:00 2019-07-13 23:59:00 No 80mg Q6H Chew 1 tablet (80 mg total) every 6 (six) hours as needed for flatulence for up to 30 days. Shin Deal ondansetron ODT (ZOFRAN-ODT) 4 MG disintegrating tablet 2019-06-13 00:00:00 2019-06-23 23:59:00 No 4mg Q8H Take 1 tablet (4 mg total) by mouth every 8 (eight) hours as needed for nausea or vomiting for up to 10 days. Shin Deal methocarbamol (ROBAXIN) 500 MG tablet 2019-06-08 00:00 :00 2019-07-12 00:00:00 No 500mg Q.[id number] Take 1 tablet (500 mg total) by mouth 3 (three) times a day for 30 days. Shin Deal HYDROcodone-acetaminophen (NORCO) 7.5-325 mg per tablet 2019-06-08 00:00:00 2019-06-13 23:59:00 No acute pain 1{tbl} Q4H Take 1 tablet by mouth every 4 (four) hours as needed for moderate pain for up to 5 days .acute pain. Max Daily Amount: 6 tablets Shin Deal traMADol (ULTRAM) 50 mg tablet 2019-06-08 00:00:00 2019-06-01 3 23:59:00 No acute pain 50mg Q8H Take 1 tablet (50 mg total) by mouth every 8 (eight) hours as needed for moderate pain for up to 5 days .acute pain. Shin Deal pancrelipase, bkcujo-egurkwsb-afioyvo, ( CREON) 24,000-76,000 -120,000 unit capsule,delayed release(DR/EC) capsule 2019-05-29 00:00:00 2 00:00:00 No 1{capsule} Q.[id number] Ta ke 1 capsule by mouth 3 (three) times a day with meals. Shin Deal ondansetron ODT (ZOFRAN-ODT) 8 MG disintegrating tablet 2019-05-27 00:00:2019-05-31 00:00:00 No DIS 1 T PO Q 8 H PRN N Shin Deal traMADol (ULTRAM) 50 mg tablet 2019-05-24 00:00:00 2019-05-03 1 00:00:00 No chronic pain 50mg Q6H Take 1 tablet (50 mg total) by mouth every 6 (six) hours as needed for moderate pain for up to 30 days .chronic pain. Shin Deal traMADol (ULTRAM) 50 mg tablet 2019-05-24 00:00:00 2019-05-02 4 00:00:00 No chronic pain 50mg Q6H Take 1 tablet (50 mg total) by mouth every 6 (six) hours as needed for moderate pain for up to 30 days .chronic pain. Shin Deal traMADol (ULTRAM) 50 mg tablet 2019-05-24 00:00:00 2019-05-02 4 00:00:00 No chronic pain 50mg Q6H Take 1 tablet (50 mg total) by mouth every 6 (six) hours as needed for moderate pain for up to 30 days .chronic pain. Shin Deal Levofloxacin (Levaquin) 500 Mg Tablet Levofloxacin (Levaquin ) 500 Mg Tablet 2019-05-06 00:00:00 Yes Buffy Rosas Md 500 Daily f or For Infection [facility] HYDROcodone-acetaminophen (XODOL) 5-300 mg per tablet 2019-04-19 00:00:00 2019-05-19 23:59:00 No acute pain 1{tbl} Q6H Take 1 tablet by mouth every 6 (six) hours as needed for moderate pain for up to 30 days .acute pain. Max Daily Amount: 4 tablets Shin Deal HYDROcodone-acetaminophen (NORCO) 5-325 mg per tablet 2019-04-19 00:00:00 2019-04-19 00:00:00 No chronic pain 1{tbl} Q6H Jay Jay e 1 tablet by mouth every 6 (six) hours as needed for moderate pain for up to 30 days .chronic pain. Max Daily Amount: 4 tablets Shin roblero HYDROcodone-acetaminophen (NORCO) 5-325 mg per tablet 2019-04-19 00:00:00 2019-04-19 00:00:00 No chronic pain 1{tbl} Q6H Jay Jay e 1 tablet by mouth every 6 (six) hours as needed for moderate pain for up to 30 days .chronic pain. Max Daily Amount: 4 tablets Shin roblero HYDROcodone-acetaminophen (NORCO) 5-325 mg per tablet 2019-04-19 00:00:00 2019-04-19 00:00:00 No chronic pain 1{tbl} Q4H Jay Jay e 1 tablet by mouth every 4 (four) hours as needed for moderate pain for up to 30 days .chronic pain. Max Daily Amount: 6 tablets Shin roblero diphenoxylate-atropine (LOMOTIL) 2.5-0.025 mg per tablet 2019-04-17 00:00:00 2019-05-18 23:59:00 No 1{tbl} Q.25D Take 1 tablet by mouth 4 (four) times a day as needed for diarrhea for up to 10 doses. Shin Deal hyoscyamine (LEVSIN/SL) 0.125 mg SL tablet 04-17 00:00:00 2019-05-17 23:59:00 No .125mg Q4H Take 1 tablet (0.125 mg total) by mouth every 4 (four) hours as needed for cramping (irritable bowel) for up to 30 days. Shin Deal PROAIR HFA 90 mcg/actuation inhaler 2019-03-04 00:00:00 Yes 2{puff} Q.[id number] Inhale 2 puffs 6 (six) times a day as ne eded for shortness of breath. Shin Deal SYMBICORT 160-4.5 mcg/actuation inhaler 00:00:00 2019-05-31 00:00:00 No 2{puff} Q.5D Inhale 2 puffs 2 (two) times a day. Shin Deal HYDROcodone-acetaminophen (HYCET) 2.5-108.3 mg/5 mL solution 2019-02-21 00:00:00 2019-03-25 00:00:00 No chronic pain 15mL Q4H Take 15 mL by mouth every 4 (four) hours as needed for moderate pain for up to 30 doses .chronic pain. Max Daily Amount: 90 mL Melissa Me thodist traMADol (ULTRAM) 50 mg tablet 2019-02-15 00:00:00 2019-03-01 7 23:59:00 No chronic pain 100mg Q8H Take 2 tablets (100 mg total) by mouth every 8 (eight) hours as needed for moderate pain for up to 30 days .chronic pain. Shin Deal traMADol-acetaminophen (ULTRACET) 37.5-325 mg per tablet 2019-02-08 11:57:25 2019-02-08 00:00:00 No 1{tbl} Q8H Take 1 tablet by mouth every 8 (eight) hours as needed for moderate pain. Andrea Deal Albuterol Sulfate (Proair Hfa Inhaler*) 8.5 Gm Inh Alb uterol Sulfate (Proair Hfa Inhaler*) 8.5 Gm Inh 2018-04-30 00:00:00 Yes Lyudmila Rizvi Md 2 Every 4 Hours as needed for Wheezing [facility] D-Methorphan Hb/P-Epd Hcl/Bpm (Bromfed Dm Cough Syrup) 118 Ml Syrup D-Methorphan Hb/P-Epd Hcl/Bpm (Bromfed Dm Cough Syrup) 118 Ml Syrup 2018-04-30 00:00:00 Yes Lyudmila Rizvi Md 10 Every 4 Hours as needed for Cough [facility] Famotidine (Pepcid) 20 Mg Tablet Famotidine (Pepcid) 20 Mg T ablet 2018-04-30 00:00:00 Yes Lyudmila Rizvi Md 20 Twice A Day [facility] Prednisone 20 Mg Tab Prednisone 20 Mg Tab 2018-04-30 00:00:00 Yes Lyudmila Rizvi Md [address] [facility] ondansetron ODT (ZOFRAN-ODT) 8 MG disintegrating tablet 2016-09-22 00:00:00 2019-05-27 00:00:00 No DIS 1 T PO Q 8 H PRN N Shin [place] carvedilol (COREG) 3.125 MG tablet 2016-09-05 00:00:00 202 00:00:00 No 3.125mg Q2D Take 3.125 mg by mouth every other day. Shin Deal Amylas/Cellu/Lipas/Protea/Bile ([place] 6,000 Units C apsule) 1 Ea Cap Amylas/Cellu/Lipas/Protea/Bile ([place] 6,000 Units Capsule) 1 Ea Cap 2016-06-09 00:00:00 Yes Danial Oquendo Md 2 Before Natalie ls [facility] Furosemide 40 Mg Tablet Furosemide 40 Mg Tablet 2016-06-09 00:00:00 Yes Danial Oquendo Md 20 Daily [facility] clopidogrel (PLAVIX) 75 mg tablet 2016-04-04 00:00:00 Yes 75mg QD Take 75 mg by mouth nightly. [facility] CRESTOR 10 mg tablet 2016-04-04 00:00:00 Yes 10mg QD Take 10 mg by mouth nightly. Shin Deal Aspirin (Aspir 81) 81 Mg Tablet. Aspirin (Aspir 81) 81 Mg Tablet.dr Daniel 81 Daily [facility] Clopidogrel Bisulfate (Plavix) 75 Mg Tablet Clopidogre l Bisulfate (Plavix) 75 Mg Tablet Yes 75 Daily [facility] Rosuvastatin Calcium (Crestor) 10 Mg Tab Rosuvastatin Calcium (Crestor) 10 Mg Tab Yes 10 Daily [facility] Valsartan (Diovan) 80 Mg Tab Valsartan (Diovan) 80 Mg Tab Y es 80 Daily [facility] Vital Signs Vital Name Observation Time Observation Value Comments Source Systolic blood pressure 2019-09-11 14:14:00 116 mm[Hg] Shin Deal Diastolic blood pressure 2019-09-11 14:14:00 58 mm[Hg] Shin Deal Heart rate 2019-09-11 14:14:00 83 /min Shin Deal Body temperature 2019-09-11 14:14:00 36.17 Kristine Hous lauryn Deal Respiratory rate 2019-09-11 14:14:00 18 /min Julia lauryn Rastafari Body height 2019-09-11 14:14:00 157.5 cm Shin Deal Body weight 2019-09-11 14:14:00 39.055 kg Shin Deal BMI 2019-09-11 14:14:00 15.75 kg/m2 Shin Deal Oxygen saturation in Arterial blood by Pulse oximetry 09-10 14:14:00 96 /min Shin [place] Procedures Procedure Date / Time Performed Performing Clinician Sourc e CARCINOEMBRYONIC ANTIGEN (CEA) 2019-09-09 08:45:00 Tico Miranda CANCER ANTIGEN 19-9 2019-09-09 08:45:00 Tico Miranda on Rastafari COMPREHENSIVE METABOLIC PANEL 2019-09-09 08:45:00 Tico Miranda Ed HC COMPLETE BLD COUNT W/AUTO DIFF 2019-09-09 08:45:00 Joseph Miranda Rastafari MAGNESIUM LEVEL 2019-09-09 08:45:00 Tico Miranda ethodist ESTIMATED GFR 2019-09-09 08:45:00 Tico Miranda ethodist CARCINOEMBRYONIC ANTIGEN (CEA) 2019-09-02 09:24:00 Tico Miranda CANCER ANTIGEN 19-9 2019-09-02 09:24:00 Tico Miranda on Rastafari CBC WITH PLATELET AND DIFFERENTIAL 2019-09-02 09:01:00 Aneudy Miranda MANUAL DIFFERENTIAL 2019-09-02 09:01:00 Tico Miranda on Rastafari COMPREHENSIVE METABOLIC PANEL 2019-09-02 08:43:00 Tico Miranda Ed Rastafari MAGNESIUM LEVEL 2019-09-02 08:43:00 Tico Miranda ethodist ESTIMATED GFR 2019-09-02 08:43:[address] ABDOMEN WWO CONTRAST PELVIS W CONTRAST 2019-08-21 11:54:02 Que Enamorado Rastafari COMPREHENSIVE METABOLIC PANEL 2019-08-19 08:45:00 Tico Miranda Ed Rastafari HC COMPLETE BLD COUNT W/AUTO DIFF 2019-08-19 08:45:00 Joseph Miranda Rastafari MAGNESIUM LEVEL 2019-08-19 08:45:00 Tico Miranda ethodist ESTIMATED GFR 2019-08-19 08:45:00 Tico Miranda ethodist CARCINOEMBRYONIC ANTIGEN (CEA) 2019-08-05 08:19:00 Tico Miranda Rastafari CANCER ANTIGEN 19-9 2019-08-05 08:19:00 Tico Miranda on Rastafari COMPREHENSIVE METABOLIC PANEL 2019-08-05 08:19:00 Tico Miranda Ed marcos Melissa Rastafari HC COMPLETE BLD COUNT W/AUTO DIFF 2019-08-05 08:19:00 Joseph Miranda Que Melissa Rastafari MAGNESIUM LEVEL 2019-08-05 08:19:00 Sebastian Tico Dyermarcos Garcia ethodist ESTIMATED GFR 2019-08-05 08:19:00 Sebastian Tico Dyermarcos Garcia ethodist CARCINOEMBRYONIC ANTIGEN (CEA) 2019-07-29 08:40:00 Tico Miranda Rastafari CANCER ANTIGEN 19-9 2019-07-29 08:40:00 Tico Miranda on Rastafari COMPREHENSIVE METABOLIC PANEL 2019-07-29 08:40:00 Tico Miranda Ed rodríguez Melissa Rastafari CBC WITH PLATELET AND DIFFERENTIAL 2019-07-29 08:40:00 Aneudy Miranda Rastafari MAGNESIUM LEVEL 2019-07-29 08:40:00 Sebastian Tico Dyermarcos Garcia ethodist ESTIMATED GFR 2019-07-29 08:40:00 Tico Miranda Edmarcos Garcia ethodist MANUAL DIFFERENTIAL 2019-07-29 08:40:00 Tico Miranda on Rastafari COMPREHENSIVE METABOLIC PANEL 2019-07-17 08:40:00 Tico Miranda Ed marcos Melissa Rastafari HC COMPLETE BLD COUNT W/AUTO DIFF 2019-07-17 08:40:00 Joseph Miranda Edmarcos Melissa Rastafari MAGNESIUM LEVEL 2019-07-17 08:40:00 Tico Miranda Edmarcos Garcia ethodist ESTIMATED GFR 2019-07-17 08:40:00 Tico Miranda Edmarcos Garcia ethodist HC COMPLETE BLD COUNT W/AUTO DIFF 2019-07-12 04:00:00 Jeb Carl Rastafari BASIC METABOLIC PANEL 2019-07-12 04:00:00 Mari Carl Rastafari ESTIMATED GFR 2019-07-12 04:00:00 Mari Carl Meth odist POTASSIUM LEVEL 2019-07-11 16:10:00 Matheus Colindres Ho [place] Rastafari CLOSTRIDIUM DIFFICILE TOXIN 2019-07-11 05:28:00 Fan Jasperlayla Melissa Rastafari CBC WITH PLATELET AND DIFFERENTIAL 2019-07-11 03:30:00 FanMillei Rastafari BASIC METABOLIC PANEL 2019-07-11 03:30:00 FanMari n Rastafari MAGNESIUM LEVEL 2019-07-11 03:30:00 [facility] PHOSPHORUS LEV[facility] 2019-07-11 03:30:00 [facility] ESTIMATED GFR 2019-07-11 03:30:00 Fan [facility] Meth odist MANUAL DIFFERENTIAL 2019-07-11 03:30:00 [facility] MAGNESIUM LEVEL 2019-07-10 13:40:00 SutariaMatheus uston Rastafari BASIC METABOLIC PANEL 2019-07-10 13:40:00 SutariaMatheus Rastafari PHOSPHORUS LEVEL 2019-07-10 13:40:00 SutariaMatheus Rastafari ESTIMATED GFR 2019-07-10 13:40:00 Sutaria, Matheus Dong [place] Rastafari CBC WITH PLATELET AND DIFFERENTIAL 2019-07-10 03:20:00 FanMillie Rastafari BASIC METABOLIC PANEL 2019-07-10 03:20:00 FanMari Rastafari MAGNESIUM LEVEL 2019-07-10 03:20:00 [facility] PHOSPHORUS LEVEL 2019-07-10 03:20:00 [facility] ESTIMATED GFR 2019-07-10 03:20:00 [facility] MANUAL DIFFERENTIAL 2019-07-10 03:20:00 FanMari Rastafari PROTEIN, URINE, RANDOM 2019-07-09 18:30:00 SutariaMatheus [place] Rast[facility] CREATININE LEVEL, URINE, RANDOM 2019-07-09 18:30:00 SutariaLuis Antonio [place] [facility]ast[facility] MICROALBUMIN, URINE, RANDOM 2019-07-09 18:30:00 SutariaMatheus Rastafari MAGNESIUM LEVEL 2019-07-09 17:44:00 SutariaMatheus uston Rastafari PHOSPHORUS LEVEL 2019-07-09 17:44:00 [place] Matheus Pratt Gonzalez bland Rastafari BASIC METABOLIC PANEL 2019-07-09 17:44:00 Jens Matheus Melissa Rastafari ESTIMATED GFR 2019-07-09 17:44:00 Jens Matheus Pratt Iker alia Rastafari US RENAL 2019-07-09 16:37:06 Fan, Jasperlayla Melissa Meth odist GASTROINTESTINAL PANEL 2019-07-09 10:45:00 Fan, Mari matos Rastafari CBC WITH PLATELET AND DIFFERENTIAL 2019-07-09 04:15:00 Fan, Millie Melissa Rastafari PROTHROMBIN TIME WITH INR 2019-07-09 04:15:00 Fan, Mari rojo Rastafari PARTIAL THROMBOPLASTIN TIME (PTT) 2019-07-09 04:15:00 Fan, Jeb Melissa Rastafari B NATRIURETIC PEPTIDE 2019-07-09 04:15:00 Fan, Mari Pandey n Rastafari CREATINE KINASE, TOTAL (CPK) 2019-07-09 04:15:00 Fan, Mari Melissa Rastafari COMPREHENSIVE METABOLIC PANEL 2019-07-09 04:15:00 Fan, Mari Melissa Rastafari MAGNESIUM LEVEL 2019-07-09 04:15:00 Fan, Jasperlayla Melissa Meth odist PHOSPHORUS LEVEL 2019-07-09 04:15:00 Fan, Mari Melissa Met hodist PREALBUMIN LEVEL 2019-07-09 04:15:00 Fan, Mari Melissa Met hodist THYROID STIMULATING HORMONE 2019-07-09 04:15:00 Fan, Mari Melissa Rastafari T4, FREE 2019-07-09 04:15:00 Fan, Jasperlayla Melissa Meth odist URIC ACID LEVEL 2019-07-09 04:15:00 Fan, Jasperlayla Melissa Meth odist CANCER ANTIGEN 19-9 2019-07-09 04:15:00 Tico Miranda Rastafari ESTIMATED GFR 2019-07-09 04:15:00 Tico Miranda ethodist BILIRUBIN DIRECT 2019-07-09 04:15:00 Tico Mirandaist MANUAL DIFFERENTIAL 2019-07-09 04:15:00 Tico Miranda Rastafari URINE CULTURE 2019-07-08 18:57:00 Tico Miranda ethodist URINALYSIS SCREEN AND MICROSCOPY, WITH REFLEX TO CULTURE 17:40:00 Tico Miranda BLOOD CULTURE, AEROBIC & ANAEROBIC 2019-07-08 16:00:00 Aneudy Miranda CBC WITH PLATELET AND DIFFERENTIAL 2019-07-08 16:00:00 Millie Carl Rastafari COMPREHENSIVE METABOLIC PANEL 2019-07-08 16:00:00 Slade Mari Melissa Rastafari MAGNESIUM LEVEL 2019-07-08 16:00:00 Slade Mari Melissa Meth odist LACTIC ACID LEVEL 2019-07-08 16:00:00 Tico Miranda ESTIMATED GFR 2019-07-08 16:00:00 Slade Mari Melissa Meth odneel MANUAL DIFFERENTIAL 2019-07-08 16:00:00 Slade Mari Melissa Rastafari COMPREHENSIVE METABOLIC PANEL 2019-07-08 09:00:00 Tico Miranda Ed CBC WITH PLATELET AND DIFFERENTIAL 2019-07-08 09:00:00 Aneudy Miranda MAGNESIUM LEVEL 2019-07-08 09:00:00 Tico Miranda ethodist ESTIMATED GFR 2019-07-08 09:00:00 Tico Miranda ethodist MANUAL DIFFERENTIAL 2019-07-08 09:00:00 Tico Miranda Rastafari COMPREHENSIVE METABOLIC PANEL 2019-06-24 09:49:00 Tico Miranda Ed HC COMPLETE BLD COUNT W/AUTO DIFF 2019-06-24 09:49:00 Joseph Miranda MAGNESIUM LEVEL 2019-06-24 09:49:00 Tico Miranda M ethodist ESTIMATED GFR 2019-06-24 09:49:00 Tico Miranda M ethodist HC COMPLETE BLD COUNT W/AUTO DIFF 2019-06-13 05:06:00 Sa teressa Vora Rastafari BASIC METABOLIC PANEL 2019-06-13 05:06:00 Chris Vora Rastafari ESTIMATED GFR 2019-06-13 05:06:00 Chris Vora Meth odist HC COMPLETE BLD COUNT W/AUTO DIFF 2019-06-12 04:08:00 [place] Sa teressa Deal D-DIMER 2019-06-12 04:08:00 Chris Vora Jennifer odneel RETICULOCYTE COUNT 2019-06-12 04:08:00 Chris Vora ethodi PROTHROMBIN TIME WITH INR 2019-06-12 04:08:00 Fermin Banerjeeton Rastafari BASIC METABOLIC PANEL 2019-06-12 04:00:00 Alea Voraconsuelo Deal VITAMIN B12 LEVEL 2019-06-12 04:00:00 Chris Vora Me thodist FOLATE LEVEL 2019-06-12 04:00:00 Chris Vora Shin Rodriguez odneel FERRITIN LEVEL 2019-06-12 04:00:00 Chris Vora Shin Rodriguez odneel ESTIMATED GFR 2019-06-12 04:00:00 Chris Vora Shin Rodriguez odneel CYTOLOGY (NON-GYNECOLOGICAL) REQUEST 2019-06-11 12:43:00 Fermin Banerjee UPPER GI TRACT, ENDOSCOPIC 2019-06-11 11:56:00 ElodiamelissaGénesis june Deal ESOPHAGOGASTRODUODENOSCOPY (EGD) 2019-06-11 11:56:00 Jeffrey Vora HC COMPLETE BLD COUNT W/AUTO DIFF 2019-06-11 04:40:00 ElodiaSa teressa torres BASIC METABOLIC PANEL 2019-06-11 04:00:00 Elodiamelissa Chrisconsuelo Deal ESTIMATED GFR 2019-06-11 04:00:00 Fermin Banerjee BASIC METABOLIC PANEL 2019-06-09 04:10:00 Lina Catherine HC COMPLETE BLD COUNT W/AUTO DIFF 2019-06-09 04:10:00 Rg Catherine ESTIMATED GFR 2019-06-09 04:10:00 Lina Catherine BASIC METABOLIC PANEL 2019-06-08 04:40:00 Fermin Banerjee HC COMPLETE BLD COUNT W/AUTO DIFF 2019-06-08 04:40:00 Rg Catherine ESTIMATED GFR 2019-06-08 04:40:00 Fermin Banerjee Meth odist BASIC METABOLIC PANEL 2019-06-07 04:48:00 Fermin Banerjee Rastafari HC COMPLETE BLD COUNT W/AUTO DIFF 2019-06-07 04:48:00 Rg Catherine Shin Rastafari ESTIMATED GFR 2019-06-07 04:48:00 Fermin Banerjee Meth odist HC COMPLETE BLD COUNT W/AUTO DIFF 2019-06-06 05:00:00 Mallory Banerjee Rastafari BASIC METABOLIC PANEL 2019-06-06 04:00:00 Fermin Banerjee Rastafari ESTIMATED GFR 2019-06-06 04:00:00 Fermin Banerjee Meth odist HC COMPLETE BLD COUNT W/AUTO DIFF 2019-06-05 06:23:00 Mallory Banerjee Rastafari CARCINOEMBRYONIC ANTIGEN (CEA) 2019-06-05 06:23:00 Tico Miranda Rastafari CANCER ANTIGEN 19-9 2019-06-05 06:23:00 Tico Miranda Rastafari D-DIMER 2019-06-05 06:23:00 Tico Miranda M ethodist XR CHEST 2 VW 2019-06-04 18:38:35 Tico Miranda M ethodist HC COMPLETE BLD COUNT W/AUTO DIFF 2019-06-04 04:05:00 Mallory Banerjee Rastafari HC COMPLETE BLD COUNT W/AUTO DIFF 2019-06-03 05:25:00 Mallory Banerjee COMPREHENSIVE METABOLIC PANEL 2019-06-03 05:25:00 Fermin Banerjee Rastafari ESTIMATED GFR 2019-06-03 05:25:00 Fermin Banerjee Meth odist HC COMPLETE BLD COUNT W/AUTO DIFF 2019-06-02 03:21:00 Mallory Banerjee COMPREHENSIVE METABOLIC PANEL 2019-06-02 03:21:00 Fermin Banerjeeist ESTIMATED GFR 2019-06-02 03:21:00 Fermin Banerjee Meth odist POTASSIUM LEVEL 2019-06-01 18:26:00 Fermin Banerjee Meth odist TROPONIN 2019-06-01 03:50:00 MeghaFermin joiner Meth odist HC COMPLETE BLD COUNT W/AUTO DIFF 2019-06-01 03:50:00 MeghaMallory Melissa Rastafari COMPREHENSIVE METABOLIC PANEL 2019-06-01 03:50:00 Fermin Banerjee Rastafari ESTIMATED GFR 2019-06-01 03:50:00 Fermin Banerjee Meth odist B NATRIURETIC PEPTIDE 2019-05-31 17:50:00 MeghaFermin joiner Juliato n Rastafari TROPONIN 2019-05-31 17:50:00 Fermin Banerjee Meth odist TTE COMPLETE, WO CONTRAST, W DOPPLER ([id number]) 2019-05-31 16:30:00 MeghaFermin joiner Rastafari LACTIC ACID LEVEL 2019-05-31 00:35:00 Natalie Wong Rastafari POTASSIUM LEVEL 2019-05-30 23:00:[address] ABDOMEN PELVIS W CONTRAST 2019-05-30 21:29:34 Natalie Wong Rastafari URINE CULTURE 2019-05-30 18:51:00 MaojohanTina canales Melissa Jennifer henry URINALYSIS SCREEN AND MICROSCOPY, WITH REFLEX TO CULTURE 202 18:34:00 MerlyTina Shin Deal HC COMPLETE BLD COUNT W/AUTO DIFF 2019-05-30 15:28:00 IsacJeremie canales Rastafari COMPREHENSIVE METABOLIC PANEL 2019-05-30 15:28:00 MerlyTina Shin Rastafari LIPASE LEVEL 2019-05-30 15:28:00 IsacTina canales Melissa Meth odist ESTIMATED GFR 2019-05-30 15:28:00 IsacTina canales Melissa Meth odist CT ABDOMEN W WO CONTRAST 2019-03-21 16:34:55 Chris Vora stoandrea Rastafari HC COMPLETE BLD COUNT W/AUTO DIFF 2019-03-19 13:48:00 Joseph Miranda Rastafari COMPREHENSIVE METABOLIC PANEL 2019-03-19 13:48:00 Tico Miranda Ed Rastafari AMYLASE LEVEL 2019-03-19 13:48:00 Tico Miranda ethodist LIPASE LEVEL 2019-03-19 13:48:00 Tico Miranda ethodist ESTIMATED GFR 2019-03-19 13:48:00 SebastianJosephk Que Garcia ethodist XR CHEST 2 VW 2019-02-21 14:31:00 GreciaJoseph gonzalezk Que Garcia ethodist URINE CULTURE 2019-02-21 14:00:00 GreciaJoseph gonzalezk Que Garcia ethodist GRAM STAIN 2019-02-21 14:00:00 Sebastian Tico Dyermarcos Garcia ethodist HC COMPLETE BLD COUNT W/AUTO DIFF 2019-02-21 13:41:00 Joseph Miranda COMPREHENSIVE METABOLIC PANEL 2019-02-21 13:41:00 Tico Miranda Ed ESTIMATED GFR 2019-02-21 13:41:00 SebastianJosephbill Dyermarcos Garcia ethodist URINALYSIS SCREEN AND MICROSCOPY, WITH REFLEX TO CULTURE 201 01-09-24 13:38:00 Tico Miranda LIPASE LEVEL 2019-02-21 13:29:00 Tico Miranda Shin Garcia ethodist AMYLASE LEVEL 2019-02-21 13:29:00 Tico Miranda Jose ethodist COMPREHENSIVE METABOLIC PANEL 2019-02-21 13:29:00 Tico Miranda Ed ESTIMATED GFR 2019-02-21 13:29:00 Tico Miranda ethodist CANCER ANTIGEN 19-9 2019-02-21 13:28:00 Tico Miranda CARCINOEMBRYONIC ANTIGEN (CEA) 2019-02-21 13:28:[address] ABDOMEN WWO CONTRAST PELVIS W CONTRAST 2019-02-08 13:15:0 0 Tico Miranda COMPREHENSIVE METABOLIC PANEL 2019-02-08 11:24:00 Tico Miranda Ed HC COMPLETE BLD COUNT W/AUTO DIFF 2019-02-08 11:24:00 Joseph Miranda ESTIMATED GFR 2019-02-08 11:24:00 Tico Miranda ethodist HC COMPLETE BLD COUNT W/AUTO DIFF 2018-11-15 13:14:00 Joseph Miranda COMPREHENSIVE METABOLIC PANEL 2018-11-15 13:14:00 Tico Miranda Ed Melissa Rastafari CANCER ANTIGEN 19-9 2018-11-15 13:14:00 Tico Miranda [place] Rastaf[place] ESTIMATED GFR 2018-11-15 13:14:00 Tico Miranda Shin Garcia ethodist Plan of Care Planned Activity Planned Date Details Comments Source Future Scheduled Test 2019-11-30 00:00:00 INFLUENZA VACCINE [code = INFLUENZA VACCINE] [facility] Future Scheduled Test 2003-12-21 00:00:00 65+ PNEUMOCOCCAL V ACCINE (1 of 2 - PCV13) [code = 65+ PNEUMOCOCCAL VACCINE (1 of 2 - PCV13)] [place] [facility] Future Scheduled Test 1988 00:00:00 SHINGLES VACCINES (#1) [code = SHINGLES VACCINES (#1)] [place] [facility] Encounters Start Date/Time End Date/Time En[facility] ID Source 2019-09-11 00:00:00 2019-09-11 00:00:00 Outpatient TICO MIRANDA [facility] [id number] Melissa Rastafari 2019-09-09 00:00:00 2019-09-09 00:00:00 Outpatient TICO MIRANDA [facility] [id number] [place] [facility] 2019-09-02 00:00:00 2019-09-02 00:00:00 Outpatient TICO MIRANDA [facility] [id number] [place] [facility] 2019-08-21 00:00:00 2019-08-21 00:00:00 Outpatient TICO MIRANDA [facility] [id number] [place] [facility] 2019-08-21 00:00:00 2019-08-21 00:00:00 Outpatient ALLEY KUHN [facility] [id number] [place] [facility] 2019-08-21 00:00:00 2019-08-21 00:00:00 Outpatient TICO MIRANDA [facility] [id number] [place] [facility] 2019-08-19 00:00:00 2019-08-19 00:00:00 Outpatient TICO MIRANDA [facility] [id number] [place] [facility] 2019-08-07 00:00:00 2019-08-07 00:00:00 Outpatient TICO MIRANDA [facility] [id number] [place] [facility] 2019-08-05 00:00:00 2019-08-05 00:00:00 Outpatient GRECIASANJEEVTICO [facility] [id number] [place] [facility] 2019-08-05 00:00:00 2019-08-05 00:00:00 Outpatient GRECIASANJEEVTICO [facility] [id number] [place] [facility] 2019-07-29 00:00:00 2019-07-29 00:00:00 Outpatient GRECIASANJEEVTICO [facility] [id number] [place] [facility] 2019-07-19 00:00:00 2019-07-19 00:00:00 Outpatient JOSEPH MIRANDABill Canales [facility] [id number] [place] [facility] 2019-07-17 00:00:00 2019-07-17 00:00:00 Outpatient SEBASTIANTICO [facility] [id number] [place] [facility] 2019-07-08 00:00:00 2019-07-12 00:00:00 Inpatient SLADE MARI Canales [facility] [id number] [place] [facility] 2019-07-08 00:00:00 2019-07-08 00:00:00 Outpatient SEBASTIANTICO [facility] [id number] [place] [facility] 2019-07-05 20:50:00 2019-07-06 00:43:00 Departed Emergency Room [facility] [id number] [facility] Patients [facility] 2019-07-03 10:39:00 2019-07-03 14:46:00 Departed Emergency Room [facility] [id number] [facility] Patients [facility] 2019-07-01 00:00:00 2019-07-01 00:00:00 Outpatient SEBASTIAN TICO Canales [facility] [id number] [place] [facility] 2019-06-29 15:58:00 2019-06-29 18:39:00 Departed Emergency Room [facility] [id number] [facility] Patients [facility] 2019-06-26 00:00:00 2019-06-26 00:00:00 Outpatient TICO MIRANDA [facility] [id number] [place] [facility] 2019-06-24 00:00:00 2019-06-24 00:00:00 Outpatient GRECIASANJEEV TICO Canales [facility] [id number] [place] [facility] 2019-05-30 00:00:00 2019-06-13 00:00:00 Inpatient FERMIN BANERJEE [facility] [id number] [place] [facility] 2019-05-27 00:00:00 2019-05-27 00:00:00 Outpatient [facility] [id number] [place] [facility] 2019-05-27 00:00:00 2019-05-27 00:00:00 Outpatient ALLEY KUHN [facility] [id number] [place] [facility] 2019-05-27 00:00:00 2019-05-27 00:00:00 Outpatient ALLEY KUHN [facility] [id number] [place] [facility] 2019-05-06 18:09:00 2019-05-06 20:32:00 Departed Emergency Room 1 BUFFY ROSAS [facility] [id number] [facility] 2019-04-09 14:52:00 2019-04-30 23:59:00 Discharged Recurring [facility] [id number] [facility] 2019-03-21 00:00:00 2019-03-21 00:00:00 Outpatient NOEL VORA [facility] [id number] [place] [facility] 2019-02-21 00:00:00 2019-02-21 00:00:00 Outpatient TICO MIRANDA [facility] [id number] [place] [facility] 2019-02-08 00:00:00 2019-02-08 00:00:00 Outpatient TICO MIRANDA [facility] [id number] [facility] 2018-04-19 10:16:00 2018-04-30 23:59:00 Discharged Recurring [facility] [id number] [facility] 2018-04-30 00:53:00 2018-04-30 02:31:00 Departed Emergency Room [facility] [id number] [facility] 2018-03-01 12:05:00 2018-03-30 23:59:00 Discharged Recurring [facility] [id number] [facility] 2018-02-22 11:38:00 2018-02-28 23:59:00 Discharged Recurring [facility] [id number] [facility] Results Test Description Test Time Test Comments Results Result Comments Source Cancer antigen 19-9 2019-09-09 11:17:41 Test Item CA 19-9 (test code = 1006) 156 U/mL 0-35 H T he Sergio Wm 8000 CA19-9 immunoassay was used. Results obtained with different assay methods or kits should not be used interchangeably and may be different. Lab Interpretation (test code = 82057-5) Abnormal [place] [facility] antigen (CEA)2019-09-09 11:16:52* Test Item Value Reference Range Interpretation Comments CEA (test code = 9-6) 4.7 ng/mL 0-3.8 H Ref erence range for heavy smokers: 0.0 - 5.5 ng/mLThe SERGIO Wm 8000 CEA immunoassay was used. Results obtained with different assay methods or kits should not be used interchangeably and may be different. Lab Interpretation (test code = 47786-1) Abnormal [place] [facility] [id number] 10:18:35* Test Item Value Reference Range Interpretation Comments Sodium (test code = 2951-2) 135 135- 148 mEq/L Potassium (test code = 2823-3) 5.0 3.5- 5.0 mEq/L Chloride (test code = 2075-0) 101 98- 112 mEq/L CO2 (test code = 2027-9) 23 24- 31 mEq/L L Anion gap (test code = 68680-5) 11@ANIO 7- 15 mEq/L BUN (test code = 3094-0) 17 mg/dL 8-23 Creatinine (test code = 2160-0) 0.94 mg/dL 0.5-0.9 H Glucose (test code = 2345-7) 114 mg/dL 65-99 H Calcium (test code = 43723-1) 8.9 mg/dL 8.8-10.2 Protein (test code = 2885-2) 6.8 g/dL 6.3-8.3 - 4.6- 7.0 g/dL1 week 4.4-7.6 g/dL7 months-1year 5.1-7.3 g/dL1-2 years 5.6-7.5 g/dL>3 years 6.0-8.0 g/pF35-777 6.3-8.3 g/dL Albumin (test code = 1751-7) 2.1 g/dL 3.5-5 L A/G ratio (test code = 1759-0) 0.4 0.7-3.8 L Alkaline phosphatase (test code = 6768-6) 121 U/L 35-104 H AST (test code = 1920-8) 20 U/L 10-35 ALT (test code = 1742-6) 13 U/L 5-50 Total bilirubin (test code = 1974-2) <0.2 0-1.2 Lab Interpretation (test code = 36776-1) Abnormal [place] [facility] [id number] 10:18:35* Test Item Value Reference Range Interpretation Comments Magnesium (test code = 29999-9) 2.3 mg/dL 1.6-2.4 [place] MethodistEstimated [id number] 10:18:34* Test Item Value Reference Range Interpretation Comments Estimated GFR (test code = 5488) 57 mL/min/1.73 m2 A Catergory Units InterpretationG1 >=90 Normal or highG2 60-89 Mildly rleogaodaX7v 45-59 Mildly to moderately ldzqjraatQ3v 30-44 Moderately to severely decreasedG4 15-29 Severely decreasedG5 <15 Kidney failureThe eGFR was calculated using the Chronic Kidney Disease Epidemiology Collaboration (CKD-EPI) equation. Interpretation is based on recommendations of the National Kidney Foundation-Kidney Disease Outcomes Quality Initiative (NKF-KDOQI) published in 2014. Lab Interpretation (test code = 50041-5) Abnormal [place] [facility] with platelet and [id number] 09:13:56* Test Item Value Reference Range Interpretation Comments WBC (test code = 41273-4) 8.16 4.50- 11.00 k/uL RBC (test code = 20287-9) 2.56 m/uL 4.2-5.5 L HGB (test code = 718-7) 7.7 g/dL 12-16 L HCT (test code = 4544-3) 25.8 % 37-47 L MCV (test code = 787-2) 100.8 fL 82-100 H MCH (test code = 785-6) 30.1 pg 27-34 MCHC (test code = 786-4) 29.8 g/dL 31-37 L RDW - SD (test code = 37675-3) 66.4 fL 37-55 H MPV (test code = 73259-0) 9.4 fL 8.8-13.2 Platelet count (test code = 81658-0) 400 150- 400 k/uL Nucleated RBC (test code = 24394-0) 0.00 /100 WBC Neutrophils (test code = 98259-6) 71.1 % 39-69 H Lymphocytes (test code = 47661-7) 14.5 % 25-45 L Monocytes (test code = 90661-1) 12.6 % 0-10 H Eosinophils (test code = 98043-0) 0.2 % 0-5 Basophils (test code = 74100-9) 0.5 % 0-1 Immature granulocytes (test code = 01177-5) 1.1 % 0-1 H "Immature granulocytes" (promyelocytes, myelocytes, metamyelocytes) Lab Interpretation (test code = 67688-0) Abnormal [place] MethodistManual [id number] 10:03:41* Test Item Value Reference Range Interpretation Comments Manual differential (test code = 91831-2) PERFORMED Neutrophils (test code = 09466-1) 27.0 % 39-69 L Lymphocytes (test code = 61239-4) 42.0 % 25-45 Monocytes (test code = 69794-1) 29.0 % 0-10 H Eosinophils (test code = 24393-2) 0.0 % 0-5 Basophils (test code = 73658-0) 0.0 % 0-1 Metamyelocytes (test code = 740-1) 1 % Myelocytes (test code = 749-2) 1 % Promyelocytes (test code = 783-1) 0 % Platelet slide review (test code = 77046-5) Gabrielle adequate Anisocytosis (test code = 702-1) Moderate Polychromasia (test code = 66871-7) Moderate Ovalocytes (test code = 774-0) Moderate Enlarged platelets (test code = 34178-4) Moderate A Lab Interpretation (test code = 28636-7) Abnormal [place] [facility] Cont[facility], Pelvis W [id number] 12:16:20Hm Interface, Radiology Results 08/21/2019 12:19 PM CDTEXAMINATION: CT ABDOMEN WWO CONTRAST PELVIS W CONTRASTCLINICAL HISTORY: C25.1 Malignant neop lasm of body of pancreas, Pancreatic cancer s p chemoradiationTECHNIQUE: Noncont rast images of the abdomen were obtained. Subsequently, axial images of the abdo men and pelvis were obtained following intravenous administration of iodinated c ontrast. Sagittal and coronal computerized reformatted images were also obtained .CT imaging was performed with iterative reconstruction techniques and/or automa justin exposure control to reduce radiation dose. COMPARISON: CT abdomen and pelv is 05/30/2019Findings:1.The pancreatic neck and body mass that encases the hepati c, splenic, and superior mesenteric arteries is stable. (The splenic artery anton es directly off the aorta). The mass measures 3.3 x 2.3 cm on series 303 image 3 4. 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 There is new mild upper abdominal ascites but no definite solid peritoneal nodule.3.In the ascending colon, arising off the late ral wall just above the cecum, an irregular 3 x 1.8 x 1.4 cm polypoid mass (axia l image 106, coronal image 33, sagittal image 29) is present. There may be an ad ditional smaller polyp in the hepatic flexure measuring 8 mm on (axial image 68) . There is sigmoid diverticulosis. No bowel obstruction or acute inflammation is appreciated. The stomach is unremarkable.4.The liver, spleen, and adrenals are normal.5.There are tiny stones in the gallbladder.6.Bilateral renal benign cysts , right renal cortical scarring, and subcentimeter nonobstructing right lower po le intrarenal calculi, are present.7.There is diffuse urinary bladder wall thick ening, at least in part accentuated by nondistention but more prominent than pre vious examination and therefore worrisome for superimposed cystitis.8.No suspici ous lymph nodes are seen.9.There is no acute or aggressive skeletal finding.10.D iffuse atherosclerosis is redemonstrated. There are stents in the bilateral dar c arteries.11.Bilateral pulmonary emphysema and left lower lobe scarring are not ed. Impression:1.Stable locally advanced pancreatic primary tumor. No distant me tastatic disease/new sites of disease.2.Mild ascites is new, though there is no obvious peritoneal tumor implant.3.Pancreatic tail cyst is slightly larger.4.Jeff dder wall thickening, please correlate for possible cystitis.5.Polypoid 3 cm mas s in the ascending colon, and possible additional subcentimeter polyp in the hep atic flexure. Malignancy not excluded.[facility]-[id number] MethodistBasic metabolic [id number] 05:32:52* Test Item Value Reference Range Interpretation Comments Sodium (test code = 2951-2) 140 135- 148 mEq/L Potassium (test code = 2823-3) 4.5 3.5- 5.0 mEq/L Chloride (test code = 2075-0) 103 98- 112 mEq/L CO2 (test code = 8-9) 28 24- 31 mEq/L Anion gap (test code = 07334-5) 9@ANIO 7- 15 mEq/L BUN (test code = 3094-0) 7 mg/dL 8-23 L Creatinine (test code = 2160-0) 0.80 mg/dL 0.5-0.9 Glucose (test code = 2345-7) 145 mg/dL 65-99 H Calcium (test code = 24311-0) 8.3 mg/dL 8.8-10.2 L Lab Interpretation (test code = 10250-9) Abnormal [place] MethodistPotassium [id number] 17:09:06* Test Item Value Reference Range Interpretation Comments Potassium (test code = 2823-3) 4.6 3.5- 5.0 mEq/L [facility] difficile [id number] 14:35:35* Test Item Value Reference Range Interpretation Comments Clostridium difficile toxin (test code = 1085) No Clos tridium difficle toxin present Specimen Information Specimen Source: StoolSpecimen Site: Nonpreserved [place] RastafariPhosphorus [id number] 05:21:36* Test Item Value Reference Range Interpretation Comments Phosphorus (test code = 2777-1) 3.3 mg/dL 2.4-4.5 Shin LoeraistGastrointestinal [id number] 10:50:47Gastrointestinal panelNegative for all pathogens tested:Negative for SalmonellaNegative for CampylobacterNegative for Diarrheagenic E coli/ShigellaNegative for Shiga-like toxin-producing E coliNegative for Plesiomonas shigelloidesNegative for Yersinia enterocoliticaNegative for Vibrio speciesNegative for Clostridium difficile (Toxin A/B)Negative for CryptosporidiumNegative for Giardia lambliaNegative for Cyclospora cayeteanensisNegative for Entamoeba histolyticaNegative for A denovirus F 40/41Negative for AstrovirusNegative for Norovirus GI/GIINegative fo r Rotavirus ANegative for SapovirusNegative for Clostridium difficile toxinNegat [place] for E coli 0157This real-time PCR assay detects the presence of nucleic acid s (RNA or DNA) for the gastrointestinal pathogens listed.A result of "Not-detect ed" does not exclude the possibility of the presence of one or more pathogens at concentrations less than the detectable limits of the assay. Comment: Specimen InformationSpecimen Source: StoolSpecimen Site: Nonpreserved [place] [place] OSPITALHouamaya MethodistMicroalbumin, urine, [id number] 21:55:23* Test Item Value Reference Range Interpretation Comments Total volume, urine (test code = 95799-6) No volume mL Urine creatinine concentration (test code = 12375-4) 39 mg/dL Urine microalbumin concentration (test code = 88403-9) <1.2 mg/dL Urine microalbumin/creatinine ratio (test code = 53131-7) SEE COMME NT 0-30 Unable to calculate due to low analyte concentration. Melissa MethodistProtein, urine, [id number] 21:54:38* Test Item Value Reference Range Interpretation Comments Protein, urine random (test code = 2888-6) 36 mg/dL [place] MethodistCreatinine level, urine, bgidgs4617-33-07 21:54:37* Test Item Value Reference Range Interpretation Comments Creatinine, urine, random (test code = 76236-8) 39 mg/dL Shin DealUS [id number] 16:42:00Hm Interface, Radiology Results 07/09/2019 4:45 PM CDTExamination: US RENALClinical history: "UTI and supecting pyelonephritis." Comparison: There are no prior sonographic studies for comparison; abdominopelvic CT imaging dated 05/30/2019. IMPRESSION:The right kidney measures 9.0 x 3.8 x 4.7 cm. The echogenicity of the right renal parenchyma is unremarkable. A 10 mm in dimension cyst is noted within the right kidney. Within the lower p ortion of the right kidney, a 7 mm in dimension calculus is noted and is nonobst ructing; this finding correlates with that of the above-mentioned CT imaging. T here are no apparent solid masses, hydronephrosis or hydronephrosis within the r ight kidney.The left kidney measures 11.1 x 5.7 x 4.6 cm. The echogenicity of t he left renal parenchyma is unremarkable. 2 cysts that appear simple are noted within the left kidney, the larger of which measures 12.4 mm in maximal dimensio n. There is borderline fullness of the left renal pelvis without evidence of fr ank left hydronephrosis. There are no apparent solid masses, hydronephrosis, or echogenic foci to suggest renal calculi within the left kidney.The urinary bl adder is unremarkable in sonographic appearance. HMSL-2 [id number] MethodistBilirubin [id number] 06:36:50* Test Item Value Reference Range Interpretation Comments Bilirubin direct (test code = 1968-7) <0.2 0-0.3 [place] MethodistCreatine kinase, total (CPK)2019-07-09 06:36:50* Test Item Value Reference Range Interpretation Comments Creatine kinase (test code = 2157-6) 38 U/L 26-192 [place] MethodistT4, [id number] 06:36:50* Test Item Value Reference Range Interpretation Comments T4, free (test code = 3024-7) 1.0 ng/dL 0.9-1.7 [place] MethodistThyroid stimulating fhsffkz7377-59-81 06:36:50* Test Item Value Reference Range Interpretation Comments TSH (test code = 3016-3) 3.85 0.27- 4.20 uIU/mL [place] MethodistUric acid vbwye0015-63-04 06:36:50* Test Item Value Reference Range Interpretation Comments Uric acid (test code = 3084-1) 3.5 mg/dL 2.4-5.7 [place] MethodistPrealbumin tanhq0704-07-56 06:23:22* Test Item Value Reference Range Interpretation Comments Prealbumin (test code = 6793-4) <3 16-32 L Lab Interpretation (test code = 92054-2) Abnormal [place] MethodistB natriuretic fzgcnny3952-16-10 06:22:01* Test Item Value Reference Range Interpretation Comments BNP (test code = 20624-2) 250 pg/mL 0-100 H Lab Interpretation (test code = 78223-4) Abnormal [place] MethodistPartial thromboplastin time, owdaakfuz4581-15-83 05:54:54* Test Item Value Reference Range Interpretation Comments PTT (test code = 21189-0) 40.3 23.0- 36.0 sec H PTT therapeutic range for unfractionated heparin is61.0-112.0 seconds which corresponds to Anti-Xa0.3-0.7 U/ml. Lab Interpretation (test code = 02206-8) Abnormal [place] MethodistProthrombin time with [id number] 05:54:06* Test Item Value Reference Range Interpretation Comments Prothrombin time (test code = 5902-2) 15.8 11.5- 14.5 sec H INR (test code = 87416-3) 1.2 Th e International Normalized Ratio (INR) is a therapeutic monitoring tool for patients who are stable on oral anticoagulant therapy. An INR of 2.0-3.0 is suggested for deep vein thrombosis/pulmonary embolism. Lab Interpretation (test code = 53739-0) Abnormal [place] MethodistUrinalysis screen and microscopy, with reflex to culture 2019-07-08 22:31:13* Test Item Value Reference Range Interpretation Comments Specimen site (test code = 9666671) Clean catch Color, UA (test code = 5778-6) Yellow Appearance, UA (test code = 5767-9) Hazy Specific gravity, UA (test code = 5811-5) 1.010 1.001-1.035 pH, UA (test code = 5803-2) 6.0 5.0-8.5 Protein, UA (test code = 11908-5) 1+ Negative A Glucose, UA (test code = 29809-5) Negative Negative Ketones, UA (test code = 2514-8) Negative Negative Bilirubin, UA (test code = 5770-3) Negative Negative Blood, UA (test code = 5794-3) Moderate Negative A Nitrite, UA (test code = 5802-4) Negative Negative Urobilinogen, UA (test code = 11973-8) <2.0 <2.0 Leukocyte esterase, UA (test code = 5799-2) Small Negative A Epithelial cells, UA (test code = 5787-7) 2 /HPF WBC, UA (test code = 5821-4) 93 0- 4 /HPF H RBC, UA (test code = 00366-1) 1 0- 5 /HPF Bacteria, UA (test code = 15281-5) Moderate None seen A WBC clumps, UA (test code = 97778-7) Few A Yeast, UA (test code = 17629-6) None seen Yeast with pseudohyphae, UA (test code = 90316-7) None seen Hyaline casts, UA (test code = 5796-8) 3 /LPF Lab Interpretation (test code = 30425-0) Abnormal [place] MethodistLactic acid aqlyx8033-32-00 17:17:49* Test Item Value Reference Range Interpretation Comments Lactic acid (test code = 23534-0) 2.3 mmol/L 0.5-2.2 H Lab Interpretation (test code = 93116-9) Abnormal [place] MethodistCytology (non-gynecological) oxpvpam1107-08-75 16:51:15* Test Item Value Reference Range Interpretation Comments Case number (test code = 0905311) [id number] Cytology (non-gynecological) report (test code = 1178) See link below for PDF Lab Report Result status (test code = 2767377) This is Final Report for [id number] 6508-54 Melissa MethodistVitamin B12 yfpav0838-73-49 08:18:55* Test Item Value Reference Range Interpretation Comments Vitamin B12 (test code = 2132-9) 554 pg/mL 211-946 Significant overlap exists between normal and deficiency states.However, most patients with deficiencies will have Serum B12 <200 pg/mL. Shin DealGmnuuoszvX-kjefg8393-24-12 06:25:14* Test Item Value Reference Range Interpretation Comments D-dimer (test code = 19738-9) 1.32 0.00- 0.40 ug/mL FEU H Units are ug/ml Fibrinogen Equivalent Unit.When combined with low clinical probability, D-dimer results of less than 0.5 ug/ml FEU have a good negative predictive value in excluding PE or DVT. For D-dimer results greater than 0.5 ug/ml FEU further testing is indicated if PE or DVT is suspected clinically.Elevated D-dimer results have been reported in DVT, PE, and DIC cases and may indicate the pre sence of a clot. D-dimer results may be elevated due to old age, , inflammatory diseases, trauma, post-operative states, sepsis, and malignancies. Lab Interpretation (test code = 93464-0) Abnormal Melissa MethodistFolate bmhrn3932-08-93 05:58:56* Test Item Value Reference Range Interpretation Comments Folate (test code = 2284-8) 9.3 ng/mL 4.8-24.2 [place] EvaristoistFerritin hmodr0499-98-11 05:49:31* Test Item Value Reference Range Interpretation Comments Ferritin level (test code = 2276-4) 51 ng/mL 13-150 [place] MethodistReticulocyte osdoa7901-83-21 05:43:50* Test Item Value Reference Range Interpretation Comments Retic %, auto (test code = 09394-7) 2.5 % 0.5-2.1 H Retic absolute, auto (test code = 16199-7) 0.0862 m/uL 0.021-0.115 5 Lab Interpretation (test code = 75672-7) Abnormal Melissa MethodistXR Chest 2 [id number] 18:44:05Hm Interface, Radiology Results - 06/04/2019 6:47 PM CSTEXAMINATION: XR CHEST 2 VWCLINICAL HISTORY: hx pancreatic cancerCOMPARISON: Chest x-ray 02/21/2019IMPRESSION: Frontal and lateral views reveal a stable cardiomediastinal silhouette with right-sided Port-A-Cath in place. Left basilar opacification has developed concerning for pneumonia and/or effusion. Right hemithorax is clear. 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 Stat.:Inpatient Room: [facility] [place] Study Status:Final Echo Event ID:[id number] Order ID: [id number] Reason for Study:HF Procedures: 2D Echo, Colorflow Doppler, Strain, Intravenous LumasonContrast ----SUMMARY: LVEF is Diastolic dysfunction Gr nestor I (Mild): Impaired relaxation with normalLV filling pressures. No hemodynami cheryl significant valvular abnormalities. FI NDINGS: LV: LV size is normal. Concentr ic left ventricular remodeling. Normal average LV global longitudinal strain at -19%. LV EF is normal. Overall wall motion is normal. Estima justin EF is 50-54%. Septal motion is paradoxical secondary to LBBB or conduction abnormality.RV: RV size is normal. RV systolic function is normal.LA: LA volume is normal.RA: RA size is normal.AO: A ortic root diameter is not well visualized.VALENTE: No pericardial effusion.AV: Focal calcification of AV leaflets.MV: No structural MV abnormaliti es noted. Mild mitral regurgitation. PV: Pulmonic valve not well seen.TV: No structural TV abnormalities noted.[place]: Diastolic dysfunct ion Grade I (Mild): Impaired relaxation with normal LV filling pressur es.Other: Insufficient TR jet to estimate PA systolic pressure. MEASUREMENTS: 2DParasternal Long [place] IVSd 0.66 cm LA Ds 2.9 cm LVIDd 4.1 cm Index 3.1 cm/m2 RWT 0.44 LVIDs 2.7 cm LV Mass 94 g (87-129) LV%fs 34 % LVM Index 70 g/m2 LVPWd 0.9 cm LVOT 2.1 cm LA Sng Plane LA Area 14 cm2 (8.8-23.4) LA Vol 38 ml Index 28 ml/m2 LA LngAx 4.1 cm LVOT LVOT Area 3.4 cm2 DOPPLERLVOT Stroke Vol LVOT TVI 16 cm HR 58 bpm LVOT LVOT SV 54 ml LVOT CO 3.1 l/min SVi 41 ml/m2 LVOT CI 2.3 l/m/m2 Signed 06/01/2019 10:03 PMSgrazyna Cheney M.D.[facility] Mfhriqfi6605-37-87 06:48:12* Test Item Value Reference Range Interpretation Comments Troponin (test code = 09185-2) 0.011 ng/mL 0-0.04 In patients suspected of having a myocardial infarction, along with all other appropriate clinical measures and actions including ECG and other diagnostics as appropriate, measure Ultra TnI at 0 hrs and at 3 hrs.Myocardial infarction VERY LIKELYThe 0 hr TnI level is > 0.10 ng/mL Tim cardial infarction LIKELYThe 0 hr TnI level is > 0.04 ng/mL and 3 hr level is increased or decreased by at least 0.020 ng/mL Myocardi al infarction VERY UNLIKELYBoth the 0 hr and 3 hr TnI levels <= 0.04 ng/mL(within normal limits) OR 0 hr is > 0.04 ng/mL and 3 hr is increased OR decreased by less than 0.020 ng/mL [facility] Abdomen Pelvis W [id number] 21:57:08Hm Interface, Radiology Results 05/30/2019 10:00 PM CSTEXAMINATION: CT ABDOMEN PELVIS W CONTRASTCLINICAL HISTORY: 78 yearsFemale Abd pain unspecified, nauseaTECHNIQUE: Multiple axial images of the abdomen and pelvis were obtained following intravenous administration of iodinated contrast. Sagittal and coronal computerized reformatted images were also obtained. CT imaging was performed with iterative reconstruction techniques and/or automated exposure control to r educe radiation dose. COMPARISON: 03/21/2019IMPRESSION:LUNG BASES:Moderate to s evere emphysematous changes are present at the lung bases. Stable airspace opaci ty in the medial left lung base (series 2 image 7). No acute consolidations or e ffusions.ABDOMEN:Liver: There is asymmetric enhancement of the liver without aidee dence of focal hepatic mass. Gallbladder/Biliary: Gallstones are present in the dependent gallbladder. There is no evidence of intra or extrahepatic biliary wali ashanti dilatation.Spleen: The spleen is not enlarged. No focal splenic mass. The sp lenic vein is thrombosed and there is a dilated gastroepiploic collateral.Pancre as: There is a ill-defined hypoenhancing mass involving the pancreatic neck and body with encasement of the hepatic and superior mesenteric arteries. Cystic niru nges are present in the pancreatic body and tail with a 4.9 x 2.7 cm cyst. The s uperior mesenteric vein and portal mesenteric confluence are obstructed. Collate ral vessels are noted about the pancreatic head.Adrenal Glands: The adrenal glan ds are unremarkable.Kidneys: A 4 mm calculus is present in the lower pole of the right kidney. There are several scattered tiny bilateral renal cysts, the large st is in the lower pole of the right kidney and measures 1.5 cm. There are no white spicious renal masses.Vascular: The abdominal aorta is diffusely atherosclerotic with mild ectasia of the distal abdominal aorta. Hepatic and splenic arteries h ave separate origins. Moderate atherosclerotic changes are present at the origin of the right renal artery. There are postoperative changes related to bilateral iliac artery stenting. There is evidence of an AV fistula on the left with cont rast opacification of the internal iliac and left gonadal veins.Nodes: A mesente monique vein near the portal mesenteric confluence is obstructed.Bowel: Diverticular changes are present in the sigmoid colon. There is no evidence of acute diverti culitis. There is no evidence of an estimate no obstruction or free intraperiton eal air. A small hiatal hernia.Ascites/fluid collections: No ascites or fluid co llections.PELVIS:Status post hysterectomy. There is no evidence of pelvic mass, fluid collection, or pelvic lymphadenopathy. MUSCULOSKELETAL: Regional skeletal structures are slightly osteopenic. There are no suspicious bony abnormalities. 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 Thrombos ed splenic vein.2.Moderate to severe COPD.3.Small hiatal hernia.4.Cholelithiasis .5.Lower pole right calyceal calculus. Benign renal cysts.6.Extensive atheroscle rotic disease with bilateral iliac stents. AV fistula on the left.7.Colonic dive rticulosis without evidence of diverticulitis.8.Status post hysterectomy. [facility]-[id number] MethodistLipase [id number] 17:17:10* Test Item Value Reference Range Interpretation Comments Lipase (test code = 3040-3) 10 U/L 13-60 L Lab Interpretation (test code = 64454-6) Abnormal [place] MethodistCXR 2 VIEW - [id number] 19:44:00 [facility] [address] [address] Patient Name: LUNA PARDO MR #: [id number] : 1940 Age/Sex: 78/F Req #: [id number] Adm Physician: Ordered by: BUFFY ROSAS MD Report #: [id number] Location: FS Room/Bed: Procedure: [id number] HOPD/ CXR 2 VIEW - HOPD Exam Date: 05/06/19 Exam Time: 192 0 REPORT STATUS: Signed EXAMINAT ION: CXR 2 VIEW - HOPD INDICATION: Cough and congestion. [id number] COMPARISON: None available. FINDINGS: PA and lateral v iews TUBES and LINES: Right chest wall port in place. Tip projecting over inferior SVC. LUNGS: Hyperinflated lungs. Mild bibasilar haziness. PLEURA: No pneumothorax. Small bilateral pleural effusions. HEART AND MED IASTINUM: The cardiomediastinal silhouette is unremarkable. BONES AND SOFT TISSUES: No acute osseous lesion. Soft tissues are unremarkable. U PPER ABDOMEN: No free air under the diaphragm. IMPRESSION: Small vandana ateral pleural effusions with mild adjacent subsegmental atelectasis. Underlyi ng/developing pneumonia cannot be excluded. Signed by: Dr. Rob Maldonado MD on 05/06/2019 7:46 PM Dictated By: ROB MALDONADO MD Electronically Si gned By: ROB MALDONADO MD on 05/06/191945 Transcribed By: BRETT on 05/06/191945 COPY TO: BUFFY ROSAS MD CT Abdomen W Wo Contrast 2019-03-21 17:57:15Hm Interface, Radiology Results 03/21/2019 6:00 PM CSTEXAMINATION: CT ABDOMEN W WO CONTRASTCLINICAL HISTORY: C25.1 Malignant neoplasm of body of pancreas, Pancreatic malignant neoplasmCOMPARISON: Serial CTs most recently February 08, 2019.TECHNIQUE: CT of the abdomen with and without intravenous contrast. CT imaging was performed with iterative reconstruction techniques and/or automated exposure control to reduce radiation dose. FINDINGS:LOWER THORAX: Normal.HEPATOBILIARY: No focal hepatic lesions. No biliary ductal dilation. Gallstones present without evidence of cholecystitis.SPLEEN: No splenomegaly.PANCREAS: There is a hypoenhancing pancreatic mass/adenocarcinoma at [...] common hepatic and left gastric artery by tumor.ADRENALS: No adrenal nodules.KIDNEYS: 4 mm right nephrolithiasis. Bilateral renal cysts. Prominent renal pelvis is again noted. No hydronephrosis or solid mass.GI TRACT: Visualized portions of the bowel demonstrate no disten tion or wall thickening.PERITONEUM/RETROPERITONEUM: No lymphadenopathy or ascit es.VASCULATURE: Abdominal aorta with marked atherosclerotic disease is nonaneury smal. Bilateral iliac grafts are noted. BONES AND SOFT TISSUES: Bones are diff usely demineralized. No destructive osseous lesion is identified. Mild spondylos is.IMPRESSION:1.Mild interval progression of locally advanced pancreatic tumor a s detailed above.2.No evidence of metastatic disease in the abdomen.[facility]-[id number] and approved by vice president quality/fellow: Rafael Hobson, And cortney Dominguez MD, personally reviewed the images and resident's/fellow's findings and agree with the final report.[place] MethodistAmylase [id number] 15:49:30* Test Item Value Reference Range Interpretation Comments Amylase (test code = 1798-8) 26 U/L 28-100 L Lab Interpretation (test code = 65556-0) Abnormal [place] Methodpresbyterian kaseman hospitalGram [id number] 03:42:57Gram stain resultRare WBC'sNo organisms seen Comment: Specimen InformationSpecimen Source: UrineSpecimen Site: Clean catch [facility]
[2019-09-21] MEDS ORDERED: VANCOMYCIN 750MG/NS 150ML IVPB 150 ML IV STA (19:26)
[2019-09-21] MEDS ORDERED: MORPHINE SULFATE INJ 4 MG/ML INJ 1ML IV STA (19:27)
[2019-09-21] MEDS ORDERED: ONDANSETRON HCL INJ 2MG/ML 2ML 2 MG/ML VIAL IV STA (19:27)
--- NOTE | 2019-09-21 19:27 | Emergency Department Note ---
History of Present Illnes History of Present Illness Chief Complaint: General Medicine Complaints History of Present Illness This is a 78 year old female . [employer] Required: No Onset (how long ago): day(s) (1) Location: lower abdominen Radiation: abdomen Severity: moderate Onset quality: gradual Duration (how long): day(s) Timing of current episode: constant Progression: worsening Chronicity: new Context: recent illness, recent immobilization Relieving factors: none Exacerbating factors: none Associated symptoms: fever/chills Treatments prior to arrival: none Past Medical/Family History Physician Review I have reviewed the patient's past medical and family history. Any updates have been documented here. Past Medical History Recent Fever: Yes Clinical Suspicion of Infectio: Yes New/Unexplained Change in Ment: No Past Medical History: Hypertension, COPD, NV, CAD, Cancer, Hyperlipedemia Other Medical History: Diverticulitis, Pancreatitis PANCREATIC CANCER Past Surgical History: Hysterectomy, PCI, Cataract Removal Other Surgery: CARDIAC STENTS X3 LEFT CAROTID ENDOCARDECTOMY Social History Smoking Cessation: Never Smoker Alcohol Use: None Any Illegal Drug Use: No Other Last Tetanus: UNKNOWN Review of Systems Review of Systems Constitutional: chills, fever EENTM: no symptoms Cardiovascular: no symptoms Respiratory: no symptoms Gastrointestinal: abdominal pain, nausea, vomiting Genitourinary: no symptoms Musculoskeletal: no symptoms Neurological: weakness Psychological: no symptoms Endocrine: no symptoms Hematological/Lymphatic: no symptoms Review of other systems All other systems reviewed and negative. Physical Exam Related Data Allergies: Coded Allergies: Sulfa (Sulfonamide Antibiotics) (Verified Allergy, Unknown, 05/30/16) ciprofloxacin (Verified Allergy, Unknown, 05/30/16) codeine (Verified Allergy, Unknown, 05/30/16) levofloxacin (Verified Allergy, Unknown, UNK, 07/03/19) penicillin (Verified Allergy, Unknown, SWELLING, 05/30/16) Triage Vital Signs Vital Signs Date Time Temp Pulse Resp B/P (MAP) Pulse Ox O2 Delivery O2 Flow Rate FiO2 09/21/19 19:15 102.3 100 18 137/68 97 Vital signs reviewed: Yes Physical Exam CONSTITUTIONAL Constitutional: distressed, ill appearing HENT HENT: normocephalic, atraumatic, oropharynx clear/moist, nose normal HENT L/R: left ext ear normal, right ext ear normal EYES Eyes: PERRL, conjunctivae normal NECK Neck: ROM normal PULMONARY Pulmonary: effort normal CARDIOVASCULAR Cardiovascular: tachycardia GASTROINTESTINAL Abdominal: soft, distension (lower), tender GENITOURINARY Genitourinary: exam deferred SKIN Skin: pale MUSCULOSKELETAL Musculoskeletal: ROM normal NEUROLOGICAL Neurological: alert, oriented x 3, no gross motor or sensory deficits PSYCHOLOGICAL Psychological: mood/affect normal, judgement normal Results Laboratory Lab results reviewed: Yes Laboratory comments CBC : HgB 7.8 CMP : Glu 228, Lactic Acid 6.06 Liver Enzymes : normal INR 1.3 UA : small leukocytes Imaging Imaging results reviewed: Yes Impressions [facility] [address] [place] [address] Patient Name: LUNA PARDO MR #: [id number] : 1940 Age/Sex: 78/F Req #: [id number] Adm Physician: Ordered by: JEAN CARNEY DO Report #: [id number] Location: [facility] Room/Bed: Procedure: [id number] HOPD/CT ABD/PEL WITH CONTRAST-HOPD Exam Date: 09/21/19 Exam Time: 2039 REPORT STATUS: Signed EXAM: CT Abdomen and Pelvis WITH contrast INDICATION: Abdominal pin, fever. COMPARISON: Report from CT abdomen/pelvis dated 06/02/2016, although the images are not available for review. TECHNIQUE: Abdomen and pelvis were scanned utilizing a multidetector helical scanner from the lung base to the pubic symphysis after administration of IV contrast. Coronal and sagittal reformations were obtained. Routine protocol was performed. Scan was performed during portal venous phase. IV CONTRAST: 100 cc of Isovue-370 ORAL CONTRAST: None COMPLICATIONS: None RADIATION DOSE: Total DLP: 175 mGy*cm Estimated effective dose: (DLP x 0.015 x size factor) mSv CTDIvol has been reviewed. It is below the limits set by the Radiation Protocol Committee (RPC). FINDINGS: LINES and TUBES: None. LOWER THORAX: Severe emphysematous changes of the lung bases. Mild dependent patchy/linear opacities may represent atelectasis or scarring.. HEPATOBILIARY: No evidence of focal mass. No biliary ductal dilatation. GALLBLADDER: Cholelithiasis without inflammatory changes. SPLEEN: No splenomegaly. Mild wedge-shaped hypodensities along the superior aspect of the spleen may represent age-indeterminate infarcts. PANCREAS: Limited evaluation of the pancreas secondary to technique. There is an ill-defined hypodense pancreatic body mass measuring approximately 3.2 x 2.9 x 2.3 cm (AP x TV x SI). The mass extends to the origin and along the proximal SMA with 360 degree circumferential involvement around the SMA. There is variant anatomy with origination of the common hepatic artery and the splenic artery from the abdominal aorta. There is a circumferential (360 degree involvement) of the common hepatic artery proximally and the splenic artery. There is attenuation of the splenic artery with nonvisualization of the proximal to midportion. There is attenuation of the common hepatic artery. The splenic artery origin is attenuated by the mass. There is likely pancreatic ductal dilatation along the head and uncinate process, although evaluation is limited. There is a 3.8 x 5.4 x 3.6 cm cystic lesion along the expected location of the pancreatic tail, abutting the posterior margin of the stomach and the medial margin of the spleen. Postsurgical clips versus calcifications along the distal pancreas. ADRENALS: No adrenal nodules KIDNEYS/URETERS: Kidneys enhance symmetrically. No evidence of hydronephrosis. Nonobstructing 5 mm right lower pole renal stone. Indeterminant 0.9 cm left upper pole renal hypodensity (series 2, image 19; 22 Hounsfield units). Indeterminate 0.7 cm exophytic left lower pole renal hypodensity with limited evaluation secondary to volume averaging (series 2, image 33). Indeterminate 1.6 cm right lower pole exophytic hypodense lesion density series 2, image 34; 44 Hounsfield units). GI TRACT: There is mural enhancement within the stomach and scattered small bowel loops. There is colonic wall thickening and inflammatory changes at the hepatic flexure. Moderate stool burden in the rectum. There is some liquid stool in the descending colon (series 2, image 30) PELVIC ORGANS/BLADDER: Status post hysterectomy. LYMPH NODES: No lymphadenopathy. VESSELS: Pancreatic mass involvement of the SMA, proximal common hepatic artery and splenic artery as above. Variant anatomy with origination of the common hepatic and splenic arteries from the abdominal aorta. Nonvisualization of the splenic vein and the SMV with peripancreatic and anterior abdominal collaterals. The distal SMA branches appear grossly patent, although evaluation is limited secondary to phase of contrast. The CORINE appears patent. Prominent left pelvic venous collaterals. There is severe atherosclerotic disease in the aorta and major arterial branches. Calcified and noncalcified plaque within the abdominal aorta. Right common and external iliac artery stents and left external artery stent appears patent. Mildly ectatic distal abdominal aorta at the origin, measuring up to 1.9 cm. PERITONEUM / RETROPERITONEUM: No free air or fluid. BONES AND SOFT TISSUES: No acute osseous abnormality. No suspicious lytic or blastic lesions. Mild degenerative disc changes. CONCLUSION: Wall thickening at the hepatic flexure with inflammatory changes suggestive of colitis, which may be infectious/inflammatory (in the setting of fever and associated gastroenteritis) or ischemic. There are severe calcified and noncalcified atherosclerotic changes of the abdominal aorta and branch vessels. While the SMA origin is attenuated secondary to pancreatic mass, the major branches appear grossly patent, although evaluation is limited of the distal branches in the absence of arterial phase images. The CORINE appears grossly patent. If clinical concern for mesenteric ischemia, then a follow-up dedicated CT angiogram is suggested. Reported history of late stage pancreatic cancer. Pancreatic body hypodense mass with circumferential involvement of the celiac artery and SMA proximally. There is nonvisualization of the SMV and splenic vein, which are likely thrombosed with peripancreatic and anterior abdominal wall collaterals. No definite lymphadenopathy or hepatic mass is identified. Correlation with prior history and comparison with outside imaging would be helpful. Consider follow-up pancreatic protocol CT or MRI if prior imaging is not available. A cystic lesion measuring simple fluid attenuation measuring up to 5.4 cm in the expected location of the distal pancreas, likely pseudocyst. Prior CT from 06/02/2016 (images not available for review at the time of this dictation), reported a 1.5 cm pseudocyst in the distal pancreatic body. The above findings were discussed with Dr. Carney on 09/21/2019 at 9:30 PM. Bilateral subcentimeter cystic lesions, some of which are indeterminate. If clinically indicated, a follow-up renal ultrasound or renal protocol CT or MRI may be considered. Cholelithiasis without evidence of cholecystitis. Age-indeterminate suspected small splenic infarcts. Signed by: Dr. Andrew Gonzales MD on 09/21/2019 9:43 PM Dictated By: ANDREW GONZALES MD 42 Transcribed By: BRETT on 09/21/192142 COPY TO: JEAN CARNEY DO~ Critical Care Time Total Critical Care Time (min): 31 Critcal care necessary due to: sepsis Assessment & Plan Reassessment Reassessment time: 23:46 Reassessment volume rescucitation done at bedside. Patient with MAP of 75 mmHg Assessment & Plan Final Impression: (1) Septic shock (2) Pancreatic cancer (3) Colitis (4) UTI (urinary tract infection) Assessment & Plan Lactic Acid elevated . D/W Oncologist Dr Cortes who agreed that patient may remain at [facility] ICU for admission. Case d/w with DR Sariah Zacarias and patient admitted to the service of Dr Caroline Lucia Depart Disposition: ADMITTED Home Meds Active Scripts Hyoscyamine Sulfate (LEVSIN) 0.125 Mg Tablet, 1 TAB SL TID for 20 Days Prov:HOPE ZAMUDIO MD 07/05/19 Metoclopramide Hcl (REGLAN) 10 Mg Tablet, 10 MG PO Q8H PRN for NAUSEA AND VOMITING, #20 Prov:ANTONIETA MIR MD 06/29/19 Levofloxacin (LEVAQUIN) 500 Mg Tablet, 500 MG PO DAILY for for infection for 10 Days, #10 TAB 0 Refills Prov:JORDY ROSAS MD 05/06/19 Albuterol Sulf* (PROAIR HFA INHALER*) 8.5 Gm Inh, 2 SPRAYS INH Q4H PRN for WHEEZING, #1 INH 0 Refills Prov:ADELSO DIAS MD 04/30/18 D-Methorphan Hb/P-Epd Hcl/Bpm (BROMFED DM COUGH SYRUP) 118 Ml Syrup, 10 ML PO Q4H PRN for COUGH, #250 ML 0 Refills Prov:ADELSO DIAS MD 04/30/18 Famotidine (PEPCID) 20 Mg Tablet, 20 MG PO BID, #60 TAB 0 Refills Prov:ADELSO DIAS MD 04/30/18 Prednisone (PREDNISONE) 20 Mg Tab, 60 MG PO DAILY, #5 TAB 0 Refills Prov:ADELSO DIAS MD 04/30/18 Furosemide (FUROSEMIDE) 40 Mg Tablet, 20 MG PO Daily for 14 Days, #30 TAB Prov:VADIM VILLASENOR MD 06/09/16 Amylas/Cellu/Lipas/Protea/Bile (CREON DR 6,000 UNITS CAPSULE) 1 Ea Cap, 2 EA PO AC for 30 Days, CAP Prov:VADIM VILLASENOR MD 06/09/16 Reported Medications Valsartan (DIOVAN) 80 Mg Tab, 80 MG PO DAILY, TAB 05/30/16 Clopidogrel Bisulfate* (PLAVIX) 75 Mg Tablet, 75 MG PO DAILY, #30 TAB 05/30/16 Rosuvastatin Calcium (CRESTOR) 10 Mg Tab, 10 MG PO DAILY THERAPEUTICALLY SUBSTITUTED WITH SIMVASTATIN 40MG 05/30/16 Aspirin (ASPIR 81) 81 Mg Tablet.dr, 81 MG PO DAILY 05/30/16 Medications in the ED Acetaminophen 650 mg ONCE ONCE PO Last administered on 09/21/19at 20:05; Admin Dose 650 MG; Start 09/21/19 at 19:30; Stop 09/21/19 at 19:31; Status DC Vancomycin HCl 150 ml @ 100 mls/hr ONCE STAT IV ; Start 09/21/19 at 19:26; Stop 09/21/19 at 20:21; Status DC Morphine Sulfate 4 mg ONCE STAT IV Last administered on 09/21/19at 20:14; Admin Dose 4 MG; Start 09/21/19 at 19:27; Stop 09/21/19 at 22:21; Status DC Ondansetron HCl 4 mg NOW STAT IV Last administered on 09/21/19at 20:10; Admin Dose 4 MG; Start 09/21/19 at 19:27; Stop 09/21/19 at 19:30; Status DC Ondansetron HCl 4 mg STK-MED ONCE .ROUTE ; Start 09/21/19 at 19:53; Stop 09/21/19 at 19:48; Status DC Acetaminophen 650 mg STK-MED ONCE .ROUTE ; Start 09/21/19 at 19:53; Stop 09/21/19 at 19:48; Status DC Sodium Chloride 50 ml @ ud STK-MED ONCE .ROUTE ; Start 09/21/19 at 19:54; Stop 09/21/19 at 19:48; Status DC Vancomycin HCl 250 ml @ ud STK-MED ONCE .ROUTE ; Start 09/21/19 at 19:54; Stop 09/21/19 at 19:48; Status DC Iopamidol 74,000 mg STK-MED ONCE INJ ; Start 09/21/19 at 19:54; Stop 09/21/19 at 19:49; Status DC Vancomycin HCl 250 ml @ 167 mls/hr ONCE STAT IV Last administered on 09/21/19at 20:45; Admin Dose 125 MLS/HR; Start 09/21/19 at 20:19; Stop 09/21/19 at 22:21; Status DC Sodium Chloride 1,000 ml @ 0 mls/hr Q0M STAT IV Last administered on 09/21/19at 21:00; Admin Dose 1,000 MLS/HR; Start 09/21/19 at 20:21; Stop 09/21/19 at 20:26; Status DC Acetaminophen 650 mg ONCE ONCE PO ; Start 09/21/19 at 19:30; Stop 09/21/19 at 19:31; Status JEAN BROWN DO September 21, 2019 19:27
[2019-09-21] MEDS ORDERED: ACETAMINOPHEN 325 MG TAB PO ONE (19:30)
[2019-09-21] MEDS ORDERED: ACETAMINOPHEN 325 MG TAB ONE (19:53)
[2019-09-21] MEDS ORDERED: ONDANSETRON HCL INJ 2MG/ML 2ML 2 MG/ML VIAL ONE ×2 (19:53→23:48)
[2019-09-21] MEDS ORDERED: VANCOMYCIN 1GM/NS 250 ML 250 ML ONE (19:54)
[2019-09-21] MEDS ORDERED: SODIUM CHLORIDE 0.9% 50ML 50 ML ONE (19:54)
[2019-09-21] MEDS ORDERED: IOPAMIDOL 370 MG/ML 200 ML INFUS..BTL INJ ONE (19:54)
[2019-09-21] MEDS ORDERED: VANCOMYCIN 1GM/NS 250 ML 250 ML IV STA (20:19)
[2019-09-21] MEDS ORDERED: SODIUM CHLORIDE 0.9% 1000ML 1,000 ML IV STA (20:21)
--- NOTE | 2019-09-21 20:27 | NUR ---
Unable to run Cardiac Panel at [facility]. Will request MD to order at hospital lab upon arrival.
[2019-09-21] MEDS ORDERED: ASPIRIN 81 MG CHEW TAB PO ONE (20:30)
--- NOTE | 2019-09-21 21:05 | NUR ---
PT HAS DRANK 3 CONTAINERS OF APPLE JUICE AND ASKED FOR JELLO . PT AND DAUGHTER STATES PT HAS NOT BEEN DRINKING NOR EATING MUCH AT HOME.
--- NOTE | 2019-09-21 21:46 | Diagnostic Imaging Report ---
EXAM: CT Abdomen and Pelvis WITH contrast INDICATION: Abdominal pin, fever. COMPARISON: Report from CT abdomen/pelvis dated 06/02/2016, although the images are not available for review. TECHNIQUE: Abdomen and pelvis were scanned utilizing a multidetector helical scanner from the lung base to the pubic symphysis after administration of IV contrast. Coronal and sagittal reformations were obtained. Routine protocol was performed. Scan was performed during portal venous phase. IV CONTRAST: 100 cc of Isovue-370 ORAL CONTRAST: None COMPLICATIONS: None RADIATION DOSE: Total DLP: 175 mGy*cm Estimated effective dose: (DLP x 0.015 x size factor) mSv CTDIvol has been reviewed. It is below the limits set by the Radiation Protocol Committee (RPC). FINDINGS: LINES and TUBES: None. LOWER THORAX: Severe emphysematous changes of the lung bases. Mild dependent patchy/linear opacities may represent atelectasis or scarring.. HEPATOBILIARY: No evidence of focal mass. No biliary ductal dilatation. GALLBLADDER: Cholelithiasis without inflammatory changes. SPLEEN: No splenomegaly. Mild wedge-shaped hypodensities along the superior aspect of the spleen may represent age-indeterminate infarcts. PANCREAS: Limited evaluation of the pancreas secondary to technique. There is an ill-defined hypodense pancreatic body mass measuring approximately 3.2 x 2.9 x 2.3 cm (AP x TV x SI). The mass extends to the origin and along the proximal SMA with 360 degree circumferential involvement around the SMA. There is variant anatomy with origination of the common hepatic artery and the splenic artery from the abdominal aorta. There is a circumferential (360 degree involvement) of the common hepatic artery proximally and the splenic artery. There is attenuation of the splenic artery with nonvisualization of the proximal to midportion. There is attenuation of the common hepatic artery. The splenic artery origin is attenuated by the mass. There is likely pancreatic ductal dilatation along the head and uncinate process, although evaluation is limited. There is a 3.8 x 5.4 x 3.6 cm cystic lesion along the expected location of the pancreatic tail, abutting the posterior margin of the stomach and the medial margin of the spleen. Postsurgical clips versus calcifications along the distal pancreas. ADRENALS: No adrenal nodules KIDNEYS/URETERS: Kidneys enhance symmetrically. No evidence of hydronephrosis. Nonobstructing 5 mm right lower pole renal stone. Indeterminant 0.9 cm left upper pole renal hypodensity (series 2, image 19; 22 Hounsfield units). Indeterminate 0.7 cm exophytic left lower pole renal hypodensity with limited evaluation secondary to volume averaging (series 2, image 33). Indeterminate 1.6 cm right lower pole exophytic hypodense lesion density series 2, image 34; 44 Hounsfield units). GI TRACT: There is mural enhancement within the stomach and scattered small bowel loops. There is colonic wall thickening and inflammatory changes at the hepatic flexure. Moderate stool burden in the rectum. There is some liquid stool in the descending colon (series 2, image 30) PELVIC ORGANS/BLADDER: Status post hysterectomy. LYMPH NODES: No lymphadenopathy. VESSELS: Pancreatic mass involvement of the SMA, proximal common hepatic artery and splenic artery as above. Variant anatomy with origination of the common hepatic and splenic arteries from the abdominal aorta. Nonvisualization of the splenic vein and the SMV with peripancreatic and anterior abdominal collaterals. The distal SMA branches appear grossly patent, although evaluation is limited secondary to phase of contrast. The CORINE appears patent. Prominent left pelvic venous collaterals. There is severe atherosclerotic disease in the aorta and major arterial branches. Calcified and noncalcified plaque within the abdominal aorta. Right common and external iliac artery stents and left external artery stent appears patent. Mildly ectatic distal abdominal aorta at the origin, measuring up to 1.9 cm. PERITONEUM / RETROPERITONEUM: No free air or fluid. BONES AND SOFT TISSUES: No acute osseous abnormality. No suspicious lytic or blastic lesions. Mild degenerative disc changes. CONCLUSION: Wall thickening at the hepatic flexure with inflammatory changes suggestive of colitis, which may be infectious/inflammatory (in the setting of fever and associated gastroenteritis) or ischemic. There are severe calcified and noncalcified atherosclerotic changes of the abdominal aorta and branch vessels. While the SMA origin is attenuated secondary to pancreatic mass, the major branches appear grossly patent, although evaluation is limited of the distal branches in the absence of arterial phase images. The CORINE appears grossly patent. If clinical concern for mesenteric ischemia, then a follow-up dedicated CT angiogram is suggested. Reported history of late stage pancreatic cancer. Pancreatic body hypodense mass with circumferential involvement of the celiac artery and SMA proximally. There is nonvisualization of the SMV and splenic vein, which are likely thrombosed with peripancreatic and anterior abdominal wall collaterals. No definite lymphadenopathy or hepatic mass is identified. Correlation with prior history and comparison with outside imaging would be helpful. Consider follow-up pancreatic protocol CT or MRI if prior imaging is not available. A cystic lesion measuring simple fluid attenuation measuring up to 5.4 cm in the expected location of the distal pancreas, likely pseudocyst. Prior CT from 06/02/2016 (images not available for review at the time of this dictation), reported a 1.5 cm pseudocyst in the distal pancreatic body. The above findings were discussed with Dr. Carney on 09/21/2019 at 9:30 PM. Bilateral subcentimeter cystic lesions, some of which are indeterminate. If clinically indicated, a follow-up renal ultrasound or renal protocol CT or MRI may be considered. Cholelithiasis without evidence of cholecystitis. Age-indeterminate suspected small splenic infarcts. Signed by: Dr. Lai Gonzales MD on 09/21/2019 9:43 PM
--- OUTSIDE RECORDS SUMMARY | 2019-09-21 22:06 | XMS REPORT | Clinical Summary ---
Author Author [facility] Organization [facility] Address Unknown Phone Unavailable Care Team Providers Care Table Top Tile Setter Name Role Phone Jaqueline Mata MD PCP [...] Active pancrelipase, Take 2 180 capsule 11 nedovp-nxfgprty-wfqogjf, capsules by 0 (CREON) 6,000-19,000 mouth 3 -30,000 unit (three) times capsule,delayed a day with release(DR/EC) capsule meals. Active OLANZapine (ZYPREXA) 2.5 TAKE 1 4 tablet 0 0 MG tablet TABLET(2.5 0 MG) BY MOUTH EVERY NIGHT FOR UP TO 4 DAYS NEEDED FOR NAUSEA 10/22/2019 Active HYDROcodone-acetaminophen Take 1 tablet 100 tablet 0 ([place]) 10-325 mg per by mouth 0 tabletIndications: [...] up) pancrelipase, Take 1 90 capsule 1 upfuqe-guojmmwt-pxgkjhf, capsule by 0 (CREON) 24,000-76,000 mouth 3 [...] Discontinued pancrelipase, Take 1 90 capsule 11 rmxwut-wjxwkpwm-plfgdpr, capsule by 0 (CREON) 6,000-19,000 mouth 3 [...] Dx); Chemotherapy induced diarrhea 09/09/2019 Infusion Oncology Marircuz Cameron, GENARO 09/09/2019 Oncology Oncology Survivorship 09/09/2019 [...] Maricruz Cameron RN 08/19/2019 Oncology Oncology Conrado Knigsley MD 08/19/2019 Orders Only Oncology 08/19/2019 Zahraa [...] MD 07/31/2019 Orders Only Oncology Lyla Fletcher [facility] 07/30/2019 Orders Only Oncology Conrado Cortes MD Malignant neoplasm of body of pancreas ( HCC) (Primary Dx); Chemotherapy induced diarrhea; Hypokalemia 07/29/2019 Infusion Oncology Lyla Fletcher [facility] 07/29/2019 Orders Only Oncology 07/29/2019 Travel 07/26/2019 [...] Cortes MD 07/11/2019 Telephone Oncology Lyla Fletcher [facility] 07/09/2019 Orders Only Oncology Conrado Cortes MD [...] Cortes MD 07/02/2019 Telephone Oncology Lyla Fletcher [facility] 07/02/2019 Orders Only Oncology Conrado Cortes MD [...] 06/18/2019 Office Visit Oncology Remy Bayron Lyla [facility] Malignant neoplasm of body of pancreas ( [...] Allie Escobedo RN 06/08/2019 Telephone General Internal Or kaitlynn Roy, MD Megha Acosta Cecil, MD Neela, Lina Yin MD Intractable abdominal pain (Primary Dx); History of pancreatic cancer; Urinary tract infection with hematuria, site unspecified; Mesenteric thrombosis (HCC); 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 [facility] Internal Or dicine - Encounter 06/13/[address] [...] location; Weight loss 02/25/2019 Orders Only Oncology Dyaan Guerrero MA 02/25/2019 Telephone Oncology Conrado Cortes [...] Description Date Type Specialty Conrado Cortes MD [address] [address] 09/24/2019 Infusion Oncology Conrado Cortes MD 9735 [facility] [address] [address] [phone] 09/24/2019 Office Visit Oncology Conrado Cortes MD [address] [address] [phone] 09/26/2019 Nurse Only Oncology Conrado Cortes MD [address] [address] [phone] 10/08/2019 Infusion Oncology Conrado Cortes MD [address] [address] [phone] 10/08/2019 Office Visit Oncology Conrado Cortes MD [address] [place] [address] [phone] 10/10/2019 Nurse Only Oncology Conrado Cortes MD [address] [place] [address] [phone] 10/22/2019 Infusion Oncology Conrado Cortes MD [address] [place] [address] [phone] 10/24/2019 Nurse Only Oncology Health Maintenance Due Date Last Done Comments SHINGLES VACCINES (#1) 1988 65+ PNEUMOCOCCAL VACCINE 12/21/2003 (1 of 2 - PCV13) INFLUENZA VACCINE 11/30/2019 Implants Device Identifier Shelf Expiration Date Model / Serial / L ot Implanted Type Area Manufactur er 08/29/2019 [id number] / / [id number] Port Imlpntbl Smart Port W/ Dtchd Implantabl N/A: N/A ANGIODYNAM 0.4ml 6.6fr 55cm 1.4x2.2mm - e Infusion [employer] [id number] Ports or Implanted: 10/17/2016 at [facility] (Quantity not on file) s Procedures Comments [...] (HCC) ESTIMATED GFR STAT 06/24/2019 9:49 AM MANUFACTURING PROJECT MANAGER MAGNESIUM LEVEL STAT 06/24/2019 Malignant neop lasm of 9:49 AM MANUFACTURING PROJECT MANAGER body of pancreas (HCC) HC COMPLETE BLD COUNT STAT 06/24/2019 Malignan t neoplasm of W/AUTO DIFF 9:49 AM MANUFACTURING PROJECT MANAGER body of pancreas (H CC) COMPREHENSIVE METABOLIC STAT 06/24/2019 Malign ant neoplasm of PANEL 9:49 AM MANUFACTURING PROJECT MANAGER body of pancreas (H CC) ESTIMATED GFR Routine 06/13/2019 5:06 AM MANUFACTURING PROJECT MANAGER BASIC METABOLIC PANEL Routine 06/13/2019 5:06 AM MANUFACTURING PROJECT MANAGER HC COMPLETE BLD COUNT Routine 06/13/2019 W/AUTO DIFF 5:06 AM MANUFACTURING PROJECT MANAGER PROTHROMBIN TIME WITH INR Routine 06/12/2019 4:08 AM MANUFACTURING PROJECT MANAGER RETICULOCYTE COUNT Routine 06/12/2019 4:08 AM MANUFACTURING PROJECT MANAGER D-DIMER Routine 06/12/2019 4:08 AM MANUFACTURING PROJECT MANAGER HC COMPLETE BLD COUNT Routine 06/12/2019 W/AUTO DIFF 4:08 AM MANUFACTURING PROJECT MANAGER ESTIMATED GFR Routine 06/12/2019 4:00 AM MANUFACTURING PROJECT MANAGER FERRITIN LEVEL Routine 06/12/2019 4:00 AM MANUFACTURING PROJECT MANAGER FOLATE LEVEL Routine 06/12/2019 4:00 AM MANUFACTURING PROJECT MANAGER VITAMIN B12 LEVEL Routine 06/12/2019 4:00 AM MANUFACTURING PROJECT MANAGER BASIC METABOLIC PANEL Routine 06/12/2019 4:00 AM MANUFACTURING PROJECT MANAGER CYTOLOGY Routine 06/11/2019 (NON-GYNECOLOGICAL) 12:43 PM MANUFACTURING PROJECT MANAGER REQUEST ESOPHAGOGASTRODUODENOSCOP 06/11/2019 Pancreatic cyst Y (EGD) 11:56 AM MANUFACTURING PROJECT MANAGER US UPPER GI TRACT, 06/11/2019 Pancreatic cyst ENDOSCOPIC 11:56 AM MANUFACTURING PROJECT MANAGER HC COMPLETE BLD COUNT Routine 06/11/2019 W/AUTO DIFF 4:40 AM MANUFACTURING PROJECT MANAGER ESTIMATED GFR Routine 06/11/2019 4:00 AM MANUFACTURING PROJECT MANAGER BASIC METABOLIC PANEL Routine 06/11/2019 4:00 AM MANUFACTURING PROJECT MANAGER ESTIMATED GFR Routine 06/09/2019 4:10 AM MANUFACTURING PROJECT MANAGER HC COMPLETE BLD COUNT Routine 06/09/2019 W/AUTO DIFF 4:10 AM MANUFACTURING PROJECT MANAGER BASIC METABOLIC PANEL Routine 06/09/2019 4:10 AM MANUFACTURING PROJECT MANAGER ESTIMATED GFR Routine 06/08/2019 4:40 AM MANUFACTURING PROJECT MANAGER HC COMPLETE BLD COUNT Routine 06/08/2019 W/AUTO DIFF 4:40 AM MANUFACTURING PROJECT MANAGER BASIC METABOLIC PANEL Routine 06/08/2019 4:40 AM MANUFACTURING PROJECT MANAGER ESTIMATED GFR Routine 06/07/2019 4:48 AM MANUFACTURING PROJECT MANAGER HC COMPLETE BLD COUNT Routine 06/07/2019 W/AUTO DIFF 4:48 AM MANUFACTURING PROJECT MANAGER BASIC METABOLIC PANEL Routine 06/07/2019 4:48 AM MANUFACTURING PROJECT MANAGER HC COMPLETE BLD COUNT Routine 06/06/2019 W/AUTO DIFF 5:00 AM MANUFACTURING PROJECT MANAGER ESTIMATED GFR Routine 06/06/2019 4:00 AM MANUFACTURING PROJECT MANAGER BASIC METABOLIC PANEL Routine 06/06/2019 4:00 AM MANUFACTURING PROJECT MANAGER D-DIMER Routine 06/05/2019 6:23 AM MANUFACTURING PROJECT MANAGER CANCER ANTIGEN 19-9 Routine 06/05/2019 6:23 AM MANUFACTURING PROJECT MANAGER CARCINOEMBRYONIC ANTIGEN Routine 06/05/2019 (CEA) 6:23 AM MANUFACTURING PROJECT MANAGER HC COMPLETE BLD COUNT Routine 06/05/2019 W/AUTO DIFF 6:23 AM MANUFACTURING PROJECT MANAGER XR CHEST 2 VW Routine 06/04/2019 6:38 PM MANUFACTURING PROJECT MANAGER HC COMPLETE BLD COUNT Routine 06/04/2019 W/AUTO DIFF 4:05 AM MANUFACTURING PROJECT MANAGER ESTIMATED GFR Routine 06/03/2019 5:25 AM MANUFACTURING PROJECT MANAGER COMPREHENSIVE METABOLIC Routine 06/03/2019 PANEL 5:25 AM MANUFACTURING PROJECT MANAGER HC COMPLETE BLD COUNT Routine 06/03/2019 W/AUTO DIFF 5:25 AM MANUFACTURING PROJECT MANAGER ESTIMATED GFR Routine 06/02/2019 3:21 AM MANUFACTURING PROJECT MANAGER COMPREHENSIVE METABOLIC Routine 06/02/2019 PANEL 3:21 AM MANUFACTURING PROJECT MANAGER HC COMPLETE BLD COUNT Routine 06/02/2019 W/AUTO DIFF 3:21 AM MANUFACTURING PROJECT MANAGER POTASSIUM LEVEL Routine 06/01/2019 6:26 PM MANUFACTURING PROJECT MANAGER ESTIMATED GFR Routine 06/01/2019 3:50 AM MANUFACTURING PROJECT MANAGER COMPREHENSIVE METABOLIC Routine 06/01/2019 PANEL 3:50 AM MANUFACTURING PROJECT MANAGER HC COMPLETE BLD COUNT Routine 06/01/2019 W/AUTO DIFF 3:50 AM MANUFACTURING PROJECT MANAGER TROPONIN Timed 06/01/2019 3:50 AM MANUFACTURING PROJECT MANAGER TROPONIN Timed 05/31/2019 5:50 PM MANUFACTURING PROJECT MANAGER B NATRIURETIC PEPTIDE Routine 05/31/2019 5:50 PM MANUFACTURING PROJECT MANAGER TTE COMPLETE, WO Routine 05/31/2019 CONTRAST, W DOPPLER 4:30 PM MANUFACTURING PROJECT MANAGER ([id number]) LACTIC ACID LEVEL STAT 05/31/2019 12:35 AM MANUFACTURING PROJECT MANAGER POTASSIUM LEVEL STAT 05/30/2019 11:00 [address]FACTURING PROJECT MANAGER CT ABDOMEN PELVIS W STAT 05/30/2019 CONTRAST 9:29 PM MANUFACTURING PROJECT MANAGER URINE CULTURE STAT 05/30/2019 6:51 PM MANUFACTURING PROJECT MANAGER URINALYSIS SCREEN AND STAT 05/30/2019 MICROSCOPY, WITH REFLEX 6:34 PM MANUFACTURING PROJECT MANAGER TO CULTURE ESTIMATED GFR STAT 05/30/2019 3:28 PM MANUFACTURING PROJECT MANAGER LIPASE LEVEL STAT 05/30/2019 3:28 PM MANUFACTURING PROJECT MANAGER COMPREHENSIVE METABOLIC STAT 05/30/2019 PANEL 3:28 PM MANUFACTURING PROJECT MANAGER HC COMPLETE BLD COUNT STAT 05/30/2019 W/AUTO DIFF 3:28 PM MANUFACTURING PROJECT MANAGER CT ABDOMEN W WO CONTRAST Routine 03/21/2019 Malig nant neoplasm of 4:34 PM MANUFACTURING PROJECT MANAGER body of pancreas (HCC) ESTIMATED GFR Routine 03/19/2019 1:48 PM MANUFACTURING PROJECT MANAGER LIPASE LEVEL Routine 03/19/2019 Malignant neopl asm of 1:48 PM MANUFACTURING PROJECT MANAGER body of pancreas (HCC) AMYLASE LEVEL Routine 03/19/2019 Malignant neopl asm of 1:48 PM MANUFACTURING PROJECT MANAGER body of pancreas (HCC) COMPREHENSIVE METABOLIC Routine 03/19/2019 Malign ant neoplasm of PANEL 1:48 PM MANUFACTURING PROJECT MANAGER body of pancreas (H CC) HC COMPLETE BLD COUNT Routine 03/19/2019 Malignan t neoplasm of W/AUTO DIFF 1:48 PM MANUFACTURING PROJECT MANAGER body of pancreas (H CC) XR CHEST [...] GFR 57 (A) mL/min/1.73 m2 DOMINIQUE Comment: [facility]OROASTRIAN [facility] Interpretation G1 >=90 Normal or high [...] published in 2014. Specimen Performing Organization Address City/[facility] Ph one Number [facility] DEPARTMENT OF [address] [place] [address] PATHOLOGY AND GENOMIC MEDICINE [address] * Cancer antigen 19-9 (09/09/2019 8:45 AM CDT) Only the most recent of 8 results within the time period is included. Pathologist [facility] CA 19-9 156 (H) 0 - 35 U/mL [place] Comment: ZOROASTRIAN [employer]m 8000 CA19-9 [facility] immunoassay was used. Results obtained with different assay methods or kits should not be used interchangeably and may be different. Specimen Blood Performing Organization Address City/[facility] Ph one Number [facility] DEPARTMENT OF [address] [place] [address] PATHOLOGY AND GENOMIC MEDICINE [address] * CBC with platelet and differential (09/09/2019 8:45 AM CDT) Only the most recent of 30 results within the time period is included. Pathologist [facility] WBC 8.16 4.50 - 11.00 k/uL [facility] RBC 2.56 (L) 4.20 - 5.50 m/uL [facility] HGB 7.7 (L) 12.0 - 16.0 g/dL [facility] HCT 25.8 (L) 37.0 - 47.0 % [facility] MCV 100.8 (H) 82.0 - 100.[address] [facility] MCH 30.1 27.0 - 34.[address] [facility] MCHC 29.8 (L) 31.0 - 37.0 g/dL [facility] RDW - SD 66.4 (H) 37.0 - 55.[address] [facility] MPV 9.4 8.8 - 13.[address] [facility] Platelet count 400 150 - 400 k/uL [facility] Nucleated RBC 0.00 /[address] [facility] Neutrophils 71.1 (H) 39.0 - 69.0 % [facility] Lymphocytes 14.5 (L) 25.0 - 45.0 % [facility] Monocytes 12.6 (H) 0.0 - 10.0 % [facility] Eosinophils 0.2 0.0 - 5.0 % [facility] Basophils 0.5 0.0 - 1.0 % [facility] Immature 1.1 (H)Comment: "Immature 0.0 - 1.0 % [facility] granulocytes granulocytes" (promyelocytes, METHOD IST myelocytes, metamyelocytes) HOSPITAL Specimen Blood Performing Organization Address City/[facility] one Number [facility] [place] [address] PATHOLOGY AND [facility] MEDICINE [address] * Magnesium level (09/09/2019 8:45 AM CDT) Only the most recent of 14 results within the time period is included. Pathologist [facility] Magnesium 2.3 1.6 - 2.4 mg/dL [facility] Specimen Blood Performing Organization Address City/[facility] one Number [facility] [place] [address] PATHOLOGY AND GENOMIC MEDICINE [address] * Carcinoembryonic antigen (CEA) (09/09/2019 8:45 AM CDT) Only the most recent of 6 results within the time period is included. CEA 4.7 (H) 0.0 - 3.8 ng/mL [place] Comment: ZOROASTRIAN Reference range for heavy HOSPITAL smokers: 0.0 - 5.5 ng/mL The [employer] Wm 8000 CEA immunoassay was used. Results obtained with different assay methods or kits should not be used interchangeably and may be different. Specimen Serum Performing Organization Address [facility] one Number [facility] [place] [address] PATHOLOGY AND GENOMIC MEDICINE [address] * Comprehensive metabolic panel (09/09/2019 8:45 AM CDT) Only the most recent of 19 results within the time period is included. Sodium 135 135 - 148 mEq/L [facility] Potassium 5.0 3.5 - 5.0 mEq/L [facility] Chloride 101 98 - 112 mEq/L [facility] CO2 23 (L) 24 - 31 mEq/L [facility] Anion gap 11@ANIO 7 - 15 mEq/L [facility] BUN 17 8 - 23 mg/dL [facility] Creatinine 0.94 (H) 0.50 - 0.90 mg/dL [facility] Glucose 114 (H) 65 - 99 mg/dL [facility] Calcium 8.9 8.8 - 10.2 mg/dL [facility] Protein 6.8 6.3 - 8.3 g/dL [place] Comment: [facility] 4.6-7.0 g/dL 1 week 4.4-7.6 g/dL 7 months-1year 5.1-7.3 g/dL 1-2 years 5.6-7.5 g/dL >3 years 6.0-8.0 g/dL 18-150 6.3-8.3 g/dL Albumin 2.1 (L) 3.5 - 5.0 g/dL [facility] A/G ratio 0.4 (L) 0.7 - 3.8 [facility] Alkaline 121 (H) 35 - 104 U/L [facility] phosphatase [facility] AST 20 10 - 35 U/L [facility] ALT 13 5 - 50 U/L [facility] Total bilirubin <0.2 0.0 - 1.2 mg/dL [facility] Specimen Blood Performing Organization Address City/State/Zipcofl Ph one Number [facility] DEPARTMENT OF [address] [place] [id number] PATHOLOGY AND GENOMIC MEDICINE [address] * Manual differential (09/02/2019 9:01 AM CDT) Only the most recent of 7 results within the time period is included. Manual PERFORMED [place] differential [facility] Neutrophils 27.0 (L) 39.0 - 69.0 % [facility] Lymphocytes 42.0 25.0 - 45.0 % [facility] Monocytes 29.0 (H) 0.0 - 10.0 % [facility] Eosinophils 0.0 0.0 - 5.0 % [facility] Basophils 0.0 0.0 - 1.0 % [facility] Metamyelocytes 1 % [facility] Myelocytes 1 % [facility] Promyelocytes 0 % [facility] Platelet slide Gabrielle adequate [facility] Anisocytosis Moderate [facility] Polychromasia Moderate [facility] Ovalocytes Moderate [facility] Enlarged Moderate (A) [facility] Specimen Performing Organization Address City/State/Zipcode Ph one Number [facility] DEPARTMENT OF [address] [place] [address] PATHOLOGY AND GENOMIC MEDICINE [facility] [address] [place] [address] * CT Abdomen WWO Contrast, Pelvis W [...] the hepatic flex ure. Malignancy not excluded. [id number] Procedure Note [facility], Radiology Results Incoming - 08/21/2019 12:19 PM [...] in the hepatic flexure. Malignancy not excluded. [id number] Performing Organization Address City/State/[facility] Ph one Number [facility] [address] [place] [address] * Basic metabolic panel (07/12/2019 4:00 AM CDT) Only the most recent of 12 results within the time period is included. Sodium 140 135 - 148 mEq/L [facility] Potassium 4.5 3.5 - 5.0 mEq/L [facility] Chloride 103 98 - 112 mEq/L [facility] CO2 28 24 - 31 mEq/L [facility] Anion gap 9@ANIO 7 - 15 mEq/L [facility] BUN 7 (L) 8 - 23 mg/dL [facility] Creatinine 0.80 0.50 - 0.90 mg/dL [facility] Glucose 145 (H) 65 - 99 mg/dL [facility] Calcium 8.3 (L) 8.8 - 10.2 mg/dL [facility] Specimen Plasma specimen Performing Organization Address [facility] one Number [facility] DEPARTMENT OF [address] [place] [address] PATHOLOGY AND GENOMIC MEDICINE [address] * Potassium level (07/11/2019 4:10 PM CDT) Only the most recent of 3 results within the time period is included. Potassium 4.6 3.5 - 5.0 mEq/L [facility] Specimen Plasma specimen Performing Organization Address [facility] one Number [facility] DEPARTMENT OF [address] [place] [address] PATHOLOGY AND GENOMIC MEDICINE [address] * C difficile toxin (07/11/2019 5:28 AM CDT) Clostridium No Clostridium difficle toxin [facility] difficile toxin present ZOROASTRIAN Comment: HOSPITAL Specimen Information Specimen Source: Stool Specimen Site: Nonpreserved Specimen Stool - Nonpreserved Performing Organization Address [facility] one Number [facility] DEPARTMENT OF [address] [place] [address] PATHOLOGY AND GENOMIC MEDICINE [address] * Phosphorus level (07/11/2019 3:30 AM CDT) Only the most recent of 5 results within the time period is included. Phosphorus 3.3 2.4 - 4.5 mg/dL [facility] Specimen Plasma specimen Performing Organization Address [facility] one Number [facility] DEPARTMENT OF [address] [place] [address] PATHOLOGY AND GENOMIC MEDICINE [address] * Microalbumin, urine, random (07/09/2019 6:30 PM CDT) Total volume, No volume mL [facility] urine [facility] Urine 39 mg/dL [place] creatinine [facility] Urine <1.2 mg/dL [place] microalbumin [facility] Urine SEE COMMENTComment: Unable to 0 - 30 mg/g [place] microalbumin/cr calculate due to low analyte METHODIS T eatinine ratio concentration. HOSPITAL Specimen Urine Performing Organization Address [facility] one Number [facility] DEPARTMENT OF [address] [place] [address] PATHOLOGY AND GENOMIC MEDICINE [address] * Protein, urine, random (07/09/2019 6:30 PM CDT) Protein, urine 36 mg/dL [place] random [facility] Specimen Urine Performing Organization Address [facility] one Number [facility] DEPARTMENT OF [address] [place] [address] PATHOLOGY AND GENOMIC MEDICINE [address] * Creatinine level, urine, random (07/09/2019 6:30 PM CDT) Creatinine, 39 mg/dL [place] urine, random [facility] Specimen Urine Performing Organization Address [facility] one Number [facility] DEPARTMENT OF [address] [place] [address] PATHOLOGY AND GENOMIC MEDICINE [address] * US Renal (07/09/2019 4:37 PM [...] urinary bladder is unremarkable in sonographic appearance. [facility]-[id number] Procedure Note Hm Interface, Radiology Results Incoming [...] urinary bladder is unremarkable in sonographic appearance. [facility] [place]-[id number] Performing Organization Address City/State/Zipcode Ph one Number [facility] [address] [facility] [place] [address] * Gastrointestinal panel (07/09/2019 10:45 AM CDT) Pathologist [facility] Gastrointestina Negative for all pathogens [facility] panel tested: ZOROASTRIAN Negative for Salmonella HOSPITAL Negative for Campylobacter [...] Specimen Stool - Nonpreserved Performing Organization Address City/[facility] Ph one Number [facility] DEPARTMENT OF [address] [place] [address] PATHOLOG[address] * Partial thromboplastin time, activated (07/09/2019 4:15 AM CDT) [facility] PTT 40.3 (H) 23.0 - 36.0 sec [place] Comment: ZOROASTRIAN PTT therapeutic range for HOSPITAL unfractionated heparin is 61.0-112.0 seconds which corresponds to Anti-Xa 0.3-0.7 U/ml. Specimen Blood Performing Organization Address [facility] Ph one Number [facility] DEPARTMENT OF [address] [place] [address] PATHOLOGY AND [facility] MEDICINE [address] * Prothrombin time with INR (07/09/2019 4:15 AM CDT) Only the most recent of 2 results within the time period is included. [facility] Prothrombin 15.8 (H) 11.5 - 14.5 sec [facility] INR 1.2 [place] Comment: ZOROASTRIAN The International Normalized HOSPITAL Ratio (INR) is a therapeutic monitoring tool for patients who are stable on oral anticoagulant therapy. An INR of 2.0-3.0 is suggested for deep vein thrombosis/pulmonary embolism. Specimen Blood Performing Organization Address [facility] one Number [facility] DEPARTMENT OF [address] [place] [address] PATHOLOGY AND [facility] MEDICINE [address] * Uric acid level (07/09/2019 4:15 AM CDT) Uric acid 3.5 2.4 - 5.7 mg/dL [facility] Specimen Plasma specimen Performing Organization Address [facility] one Number [facility] DEPARTMENT OF [address] [place] [address] PATHOLOGY AND GENOMIC MEDICINE [address] * Thyroid stimulating hormone (07/09/2019 4:15 AM CDT) TSH 3.85 0.27 - 4.20 uIU/mL [facility] Specimen Plasma specimen Performing Organization [facility] one Number [facility] DEPARTMENT OF [address] [place] [address] PATHOLOGY AND GENOMIC MEDICINE [address] * T4, free (07/09/2019 4:15 AM CDT) T4, free 1.0 0.9 - 1.7 ng/dL [facility] Specimen Plasma specimen Performing Organization Address [facility] one Number [facility] DEPARTMENT OF [address] [place] [address] PATHOLOGY AND GENOMIC MEDICINE [address] * Prealbumin level (07/09/2019 4:15 AM CDT) Prealbumin <3 (L) 16 - 32 mg/dL [facility] Specimen Serum Performing Organization [facility] one Number [facility] DEPARTMENT OF [address] [place] [address] PATHOLOGY AND GENOMIC MEDICINE [address] * B natriuretic peptide (07/09/2019 4:15 AM CDT) Only the most recent of 2 results within the time period is included. BNP 250 (H) 0 - 100 pg/mL [facility] Specimen Blood Performing Organization Address City/State[facility] one Number [facility] DEPARTMENT OF [address] [place] [address] PATHOLOGY AND GENOMIC MEDICINE [address] * Creatine kinase, total (CPK) (07/09/2019 4:15 AM CDT) Creatine kinase 38 26 - 192 U/L [facility] Specimen Plasma specimen Performing Organization Address City/[facility] Ph one Number [facility] DEPARTMENT OF [address] [place] [address] PATHOLOGY AND GENOMIC MEDICINE [address] * Bilirubin direct (07/09/2019 4:15 AM CDT) Bilirubin <0.2 0.0 - 0.3 mg/dL [facility] Specimen Plasma specimen Performing Organization Address City/[facility] Ph one Number [facility] DEPARTMENT OF [address] [place] [address] PATHOLOGY AND GENOMIC MEDICINE [address] * Urine culture (07/08/2019 6:57 PM CDT) Only the most recent of 3 results within the time period is included. Urine culture Klebsiella pneumoniae DOMINIQUE isolate >10-5 cfu/ml [facility] The performance HOSPITAL characteristics of this assay on this isolate were validated by the Microbiology Laboratory at [facility]. This source has not been approved by [...] mcg/mL: Susceptible Klebsiella pneumoniae Performing Organization Address City/State/[facility] Ph one Number [facility] DEPARTMENT OF [address] [place] [address] PATHOLOGY AND GENOMIC MEDICINE [address] * Urinalysis screen and microscopy, with reflex to culture (07/08/2019 5:40 PM CDT) Only the most recent of 3 results within the time period is included. Specimen site Clean catch [facility] Color, UA Yellow [facility] Appearance, UA Hazy [facility] Specific 1.010 1.001 - 1.035 [place] gravity, [facility] pH, UA 6.0 5.0 - 8.5 [facility] Protein, UA 1+ (A) Negative [facility] Glucose, UA Negative Negative [facility] Ketones, UA Negative Negative [facility] Bilirubin, UA Negative Negative [facility] Blood, UA Moderate (A) Negative [facility] Nitrite, UA Negative Negative [facility] Urobilinogen, <2.0 <2.0 [facility] Leukocyte Small (A) Negative [place] esterase, [facility] Epithelial 2 /HPF [place] cells, [facility] WBC, UA 93 (H) 0 - 4 /HPF [facility] RBC, UA 1 0 - 5 /HPF [facility] Bacteria, UA Moderate (A) None seen [facility] WBC clumps, UA Few (A) [facility] Yeast, UA None seen [facility] Yeast with None seen [place] [facility] Hyaline casts, 3 /LPF [facility] Specimen Urine Performing Organization Address City/State/Zipcode Ph one Number [facility] DEPARTMENT OF [address] [place] [address] PATHOLOGY AND GENOMIC MEDICINE [address] * Blood culture, aerobic & anaerobic (07/08/2019 4:00 PM CDT) Only the most recent of 2 results within the time period is included. Blood culture Klebsiella pneumoniae [place] isolate Aer/Chery [facility] The performance HOSPITAL characteristics of this assay on this isolate were validated by the Microbiology Laboratory at [facility]. This source has not been approved by [...] mcg/mL: Susceptible Klebsiella pneumoniae Performing Organization Address [facility] one Number [facility] DEPARTMENT OF [address] [place] [address] PATHOLOGY AND GENOMIC MEDICINE [address] * Lactic acid level (07/08/2019 4:00 PM CDT) Only the most recent of 2 results within the time period is included. Lactic acid 2.3 (H) 0.5 - 2.2 mmol/L [facility] Specimen Blood Performing Organization Address [facility] one Number [facility] DEPARTMENT OF [address] [place] [address] PATHOLOGY AND GENOMIC MEDICINE [address] * D-dimer (06/12/2019 4:08 AM MANUFACTURING PROJECT MANAGER) Only the most recent of 2 results within the time period is included. D-dimer 1.32 (H) 0.00 - 0.40 ug/mL [place] Comment: FEU [facility] Units are ug/ml [facility] HOSPITAL Equivalent Unit. [...] and malignancies. Specimen Blood Performing Organization Address [facility] one Number [facility] DEPARTMENT OF [address] [place] [address] PATHOLOGY AND GENOMIC MEDICINE [address] * Reticulocyte count (06/12/2019 4:08 AM MANUFACTURING PROJECT MANAGER) Pathologist [facility] Retic %, auto 2.5 (H) 0.5 - 2.1 % [facility] Retic absolute, 0.0862 0.0210 - 0.1155 m/uL [place] auto [facility] Specimen Blood Performing Organization Address City/State/[facility] Ph one Number [facility] DEPARTMENT OF [address] [place] [address] PATHOLOGY AND GENOMIC MEDICINE [address] * Folate level (06/12/2019 4:00 AM MANUFACTURING PROJECT MANAGER) [facility] Folate 9.3 4.8 - 24.2 ng/mL [facility] Specimen Serum Performing Organization Address City/[facility] Ph one Number [facility] DEPARTMENT OF [address] [place] [address] PATHOLOGY AND GENOMIC MEDICINE [address] * Ferritin level (06/12/2019 4:00 AM MANUFACTURING PROJECT MANAGER) [facility] Ferritin level 51 13 - 150 ng/mL [facility] Specimen Plasma specimen Performing Organization Address City/[facility] Ph one Number [facility] DEPARTMENT OF [address] [place] [address] PATHOLOGY AND GENOMIC MEDICINE [address] * Vitamin B12 level (06/12/2019 4:00 AM MANUFACTURING PROJECT MANAGER) [facility] Vitamin B12 554 211 - 946 pg/mL [place] Comment: [facility] Significant overlap exists HOSPITAL between normal and deficiency states. However, most patients with deficiencies will have Serum B12 <200 pg/mL. Specimen Serum Performing Organization Address City/[facility] Ph one Number [facility] DEPARTMENT OF [address] [place] [address] PATHOLOGY AND GENOMIC MEDICINE [address] * Cytology (non-gynecological) request (06/11/2019 12:43 PM MANUFACTURING PROJECT MANAGER) [facility] DEPARTMENT OF PATHOLOGY AND GENOMIC MEDICINE Cytology See link below for PDF Lab [facility] DEPART MENT (non-gynecologi Report OF PATHOLOGY tara) report AND GENOMIC MEDICINE Result status This is Final Report for [facility] DEPARTME NT [id number] OF PATHOLOGY AND GENOMIC MEDICINE Specimen Performing Organization Address City/[facility] Ph one Number [facility] DEPARTMENT OF [address] [place] [address] PATHOLOGY AND GENOMIC MEDICINE * XR Chest 2 Vw (06/04/2019 6:38 PM MANUFACTURING PROJECT MANAGER) Only the most recent of 2 results [...] The remainder of the examination is unchanged. [facility] [id number] Procedure Note Interface, Radiology Results Incoming - 06/04/2019 6:47 PM MANUFACTURING PROJECT MANAGER EXAMINATION: XR CHEST 2 VW CLINICAL HISTORY: hx pancreatic cancer COMPARISON: Chest x-ray 02/21/2019 IMPRESSION: Frontal and lateral views reveal a stable cardiomediastinal silhouette with right-sided Port-A-Cath in place. Left basilar opacification has developed concerning for pneumonia and/or effusion. Right hemithorax is clear. The remainder of the examination is unchanged. [facility]-[id number] Performing Organization Address [facility] one Number [facility] [address] [place] [address] * Troponin (06/01/2019 3:50 AM MANUFACTURING PROJECT MANAGER) Only the most recent of 2 results within the time period is included. Troponin 0.011 0.000 - 0.040 ng/mL [place] Comment: [facility] In patients suspected of HOSPITAL having a [...] Performing Organization Address City/State/Zipcode Ph one Number [facility] DEPARTMENT OF [address] [place] [address] PATHOLOGY AND GENOMIC MEDICINE [place] [facility] [address] [place] [address] * Echocardiogram complete w contrast and 3D if needed (05/31/2019 4:30 PM MANUFACTURING PROJECT MANAGER) Specimen Narrative Performed At [facility] Echo cardiography Report [address] [place] [address], [facility], [place] [address] Pat.Name: LUNA PARDO Pat.ID: [id number] .Date: 05/31/2019 Refer.MD: FERMIN BANERJEE MD Exam Time: 3:12:00 PM Study Type:Routine Echo Height: 62in Weight: 86lb BSA: 1.34 m2 Age: 8 1940,78Y Sex: FEMALE BP: 92/54 HR: 71 bpm Sonogrphr: JENNIFER Silva Pat. Stat.:Inpatient Room: [facility] Study Status:Final Echo Event ID:[id number] Order ID: [id number] Reason for Study:HF Procedures: 2D Echo, Colorflow [...] PA systolic pressure. MEASUREMENTS: 2D Parasternal Long [place] IVSd 0.66 cm LA Ds 2.9 cm [...] Radiology Results In - 06/01/2019 10:06 PM [facility] Echocardiography Report [address] [place] [address] Pat.Name: LUNA PARDO Pat.ID: [id number] .Date: 05/31/2019 Refer.MD: FERMIN BANERJEE MD Exam Time: 3:12:00 PM Study Type:Routine Echo Height: 62in Weight: 86lb BSA: 1.34 m2 Age: 8 1940,78Y Sex: FEMALE BP: 92/54 HR: 71 bpm Sonogrphr: JENNIFER Silva Pat. Stat.:Inpatient Room: [facility] Study Status:Final Echo Event ID:[id number] Order ID: [id number] Reason for Study:HF Procedures: 2D Echo, Colorflow [...] PA systolic pressure. MEASUREMENTS: 2D Parasternal Long [place] IVSd 0.66 cm LA Ds 2.9 cm [...] PM Dc Cheney M.D. Performing Organization Address City/State/[facility] Ph one Number [facility] [address] [place] [address] * CT Abdomen Pelvis W Contrast (05/30/2019 9:29 PM MANUFACTURING PROJECT MANAGER) Specimen Narrative Performed At EXAMINATION: CT ABDOMEN [...] eviden ce of diverticulitis. 8.Status post hysterectomy. [facility]-[id number] Procedure Note Hm Interface, Radiology Results Incoming - 05/30/2019 10:00 PM MANUFACTURING PROJECT MANAGER EXAMINATION: CT ABDOMEN PELVIS W CONTRAST CLINICAL [...] evidenc e of diverticulitis. 8.Status post hysterectomy. [facility]-[id number] Performing Organization Address City/[facility] [place] [address] * Lipase level (05/30/2019 3:28 PM MANUFACTURING PROJECT MANAGER) Only the most recent of 3 results within the time period is included. Lipase 10 (L) 13 - 60 U/L [facility] Specimen Plasma specimen Performing Organization Address [facility] Ph one Number [facility] DEPARTMENT OF [address] [place] [address] PATHOLOGY AND GENOMIC MEDICINE [address] * CT Abdomen W Wo Contrast (03/21/2019 4:34 PM MANUFACTURING PROJECT MANAGER) Specimen Narrative Performed At EXAMINATION: CT ABDOMEN [...] evidence of metastatic disease in the abdomen. [id number] Dictated and approved by radiology resi dent/fellow: Sahil Newberry M.D. I, Joseph Dominguez MD, personally revie wed the images and resident's/fellow's findings and agree with the final repor t. Procedure Note [facility], Radiology Results Incoming - 03/21/2019 6:00 PM MANUFACTURING PROJECT MANAGER EXAMINATION: CT ABDOMEN W WO CONTRAST CLINICAL [...] of metastatic disease in t he abdomen. [facility]-[id number] Dictated and approved by resident care provider/fellow: Sahil Newberry M.D. I, Joseph Dominguez MD, personally reviewed the images and resident's/fellow's findings and agree with the final report. Performing Organization Address [facility] Ph one Number [facility] [address] [place] [address] * Amylase level (03/19/2019 1:48 PM MANUFACTURING PROJECT MANAGER) Only the most recent of 2 results within the time period is included. Amylase 26 (L) 28 - 100 U/L [facility] Specimen Plasma specimen Performing Organization Address City/[facility] Ph one Number [facility] DEPARTMENT OF [address] [place] [address] PATHOLOGY AND GENOMIC MEDICINE [address] * Gram stain (02/21/2019 2:00 PM CDT) Gram stain Rare WBC's [place] result No organisms seen [facility] Comment: HOSPITAL Specimen Information Specimen Source: Urine Specimen Site: Clean catch Specimen Urine Performing Organization Address City/State/Zipcode Ph one Number [facility] DEPARTMENT OF [address] [place] [address] PATHOLOGY AND GENOMIC MEDICINE [place] [facility] [address] [place] [address] HOSPITAL after 09/20/2018 Insurance Type Payer Benefit Subscriber ID Effective Phone Address Plan / Dates Group Medicare MEDICARE MEDICARE xxxxxxxxxxx 2003-P DOMINIQUE, PART A AND resent [place] B Commercial BCBS COMMERCIAL BCBS xxxxxxxxxxxx 2010-P MEDICARE resent SUPPLEMENT [id number] Advance Directives For more information, please contact: [phone] Date Inactivated Comments Code Status Date Activated 07/12/2019 6:32 PM Full Code 07/08/2019 2:14 PM Code Status decision reached by: Patient 09/25/2016 6:35 PM Full Code 09/23/2016 2:29 PM Code Status decision reached by: Patient
--- OUTSIDE RECORDS SUMMARY | 2019-09-21 22:06 | XMS REPORT ---
Author Author [facility] t Organization [facility] Address [address] [place] [address] Phone Unavailable Care Team Providers Care Yoghurt Maker Name Role Phone LISA BARRIENTOS, (NS) CURT PCP JEAN DE LA ROSA Attphys Unavailable Sebastian BARRIENTOS, Que Camp Attphys Polly [facility], Gabriella Attphys Unavailable Nisha LAM, Maricruz Attphys Unavailable Tad LAM, Hero Vital Attphys Unavailable Lai RD, Kenya Attphys Unavailable Reji RN, Charley Attphys Unavailable Edgar BARRIENTOS, BGabriel Gonzalesphys Cesar FLORES, Dyana Attphys Unavailable Jose Queen RN Tinna Attphys Unavailable Remy Verma [facility], Lyla Attphys Unavailable Slade BARRIENTOS, Mari Attphys Rachel [facility], Maricruz Attphys Unavailable Kirill BARRIENTOS, Saqib Gates Attphys Megha BARRIENTOS, Fermin Attphys Dorene BARRIENTOS, Humphrey Mills Attphys Burke BARRIENTOS, Chris Attphys Bjorn BARRIENTOS, William Huizar Attphys Scott MERCADO, Mg Buchanan Attphys Fanny LAM, Allie Attphys Unavailable Patti LAM, Ailyn Attphys Unavailable DUCHAMP, A BUFFY Attphys Unavailable Tracee STARR, Ai Attphys Unavailable Sandra FLORES, Helen Attphys Unavailable Jose ANNE Admphys Unavailable SLADE, JINLAYLA Admphys Unavailable MEGHA, FERMIN Admphys Unavailable Payers Payer Name Policy Type Policy Number Effective Date Expiration Date S lloyd MEDICAREMEDICARE PART A AND Bxxxxxxxxxxx2003-PresentHOUS [place] 2003 00:00:00 [facility] BCBS COMMERCIALBCBS MEDICARE SUPPLEMENTxxxxxxxxxxxx2010- PresentCommercial xxxxxxxxxxxx 2010 00:00:00 [id number] 2010 00:00:00 [facility] Medicare A & B [id number] 2003 00:00:00 [facility] [id number] 2010 00:00:00 [facility] Medicare A & B [id number] 2003 00:00:00 [facility] Medicare A & B [id number] 2019 00:00:00 [facility] [id number] 2019 00:00:00 [facility] Medicare A & B [id number] 2003 00:00:00 [facility] [id number] 2003 00:00:00 [facility] Medicare A & B [id number] 2003 00:00:00 [facility] [id number] 2003 00:00:00 [facility] [id number] 2003 00:00:00 [facility] Medicare A & B [id number] 2003 00:00:00 [facility] [id number] 2010 00:00:00 [facility] Medicare A & B [id number] 2003 00:00:00 [facility] Problems Condition Name Condition Details Condition Category [...] without hematuri a Disease Active 2019-05-31 00:00:00 [place] Depression Depression Disease Active 2017-10-20 00:00:00 Shin [...] Deal Diverticulitis Diverticulitis Disease Active 2016-07-20 00:00:00 [place] Hyperlipidemia Hyperlipidemia Disease Active 2016-07-20 00:00:00 [place] PVD (peripheral vascular disease) PVD (peripheral vascular disea se) Disease Active 2015-05-01 00:00:00 Overview: stent in legs [place] Allergies, Adverse Reactions, Alerts Allergy Name Allergy Type Status Severity Reaction(s) Onset Date Inacti ve Date Treating Clinician Comments Source Levofloxacin Allergy to Substance Active Unknown UNK 2019-07-03 00:00: 00 [facility] Levofloxacin Propensity to adverse reactions to drug Active Anaphylaxis 2019-05-31 00:00:00 hSin Rodriguez odist Ciprofloxacin Propensity to adverse reactions to drug [...] to Substance Active Unkno wn 2016-05-30 00:00:00 [facility] Codeine Allergy to Substance Active Unknown 2016-05-30 00:00:00 [facility] Ciprofloxacin Allergy to Substance Active Unknown 2016-05-30 00:00 :00 [facility] penicillin Allergy to Substance Active Unknown SWELLING 2016-05-30 00:0 0:00 [facility] Family History Family Member Diagnosis Comments Start Date Stop Date Source Natural father Heart disease [place] Natural mother Heart disease [place] Social History Social Habit Start Date Stop Date Quantity Comments Source History of tobacco use Cigarette Smoker [place] Sex Assigned At [place] [facility] [facility] Exposure to SARS-CoV-2 (event) Not sure Shin [...] Frequency Signature (SIG) Comments Components Source HYDROcodone-acetaminophen ([place]) 10-325 mg per tablet 2019-09-21 00:00:00 2019-10-22 [...] DAYS NEEDED FOR NAUSEA [place] pancrelipase, lydvci-pzsucyeq-wydyuwo, ( CREON) 6,000-19,000 -30,000 unit capsule,delayed release(DR/EC) capsule 2019-09-02 00:00:00 2 23:59:00 Yes 2{capsule} Q.[id number] Ta ke 2 capsules by mouth 3 [...] daily for 4 days. [place] pancrelipase, asdwth-sotlkgux-cadxyda, ( CREON) 6,000-19,000 -30,000 unit capsule,delayed release(DR/EC) capsule 2019-08-06 00:00:00 2 00:00:00 No 1{capsule} Q.[id number] Ta ke 1 capsule by mouth 3 [...] tablet 2019-08-02 00:00:00 2019-08-12 23:59:00 No 5mg Q.[id number] Take 5 mg by mouth 3 (three) [...] NLY) 2019-07-17 12:00:00 2019-07-17 11:33:38 No 20meq Q.[id number] [place] potassium chloride 20 mEq in 100 mL IVPB (FOR CENTRAL LINE O NLY) 2019-07-17 12:00:00 2019-07-17 11:33:38 No 20meq Q.[id number] [place] potassium chloride 20 mEq in 100 mL IVPB (FOR CENTRAL LINE O NLY) 2019-07-17 12:00:00 2019-07-17 14:55:00 No 20meq Q.[id number] [place] OLANZapine (ZYPREXA) 2.5 MG tablet 2019-07-17 00:00:00 00:00:00 No TAKE 1 TABLET(2. 5 MG) BY MOUTH EVERY NIGHT FOR UP TO 4 DAYS NEEDED FOR NAUSEA [place] cephalexin (KEFLEX) 500 MG capsule 2019-07-13 00:00:00 23:59:00 No 500mg Q.[id number] Take 1 ca psule (500 mg total) [...] let 2019-07-12 00:00:00 2019-08-11 23:59:00 No 1{tbl} Q.[id number] Take 1 tablet by mouth 3 (three) times a day for 30 days. [place] potassium chloride 20 mEq in 100 mL IVPB (FOR CENTRAL LINE O NLY) 2019-07-08 10:15:00 2019-07-08 12:21:00 No Hypokalemia 20meq Q.[id number] [place] Hyoscyamine Sulfate (Levsin) 0.125 Mg Tablet Hyoscyami ne Sulfate (Levsin) 0.125 Mg Tablet 2019-07-05 00:00:00 Yes Vincent Dwyer Md 1 Three Times A Day [facility] OLANZapine (ZyPREXA) 2.5 MG tablet 2019-07-02 [...] Hours as needed for Nausea And Vomiting [facility] dronabinoL (MARINOL) 2.5 MG capsule 2019-06-25 00:00:0 [...] 2019-06-08 00:00 :00 2019-07-12 00:00:00 No 500mg Q.[id number] Take 1 tablet (500 mg total) by [...] 5 days .acute pain. [place] pancrelipase, njgghd-ftovkfud-iwrzopr, ( CREON) 24,000-76,000 -120,000 unit capsule,delayed release(DR/EC) capsule 2019-05-29 00:00:00 2 00:00:00 No 1{capsule} Q.[id number] Ta ke 1 capsule by mouth 3 (three) times a day with meals. [place] ondansetron ODT (ZOFRAN-ODT) 8 MG disintegrating tablet 2019-05-27 00:00:00 2019-05-31 00:00:00 No DIS 1 T PO Q [...] 500 Daily f or For Infection [facility] HYDROcodone-acetaminophen (XODOL) 5-300 mg per tablet 2019-04-19 [...] 90 mcg/actuation inhaler 2019-03-04 00:00:00 Yes 2{puff} Q.[id number] Inhale 2 puffs 6 (six) times a [...] .chronic pain. Max Daily Amount: 90 mL Shin miramontes traMADol (ULTRAM) 50 mg tablet 2019-02-15 00:00:00 [...] 4 Hours as needed for Wheezing [facility] D-Methorphan Hb/P-Epd Hcl/Bpm (Bromfed Dm Cough Syrup) 118 Ml Syrup D-Methorphan Hb/P-Epd Hcl/Bpm (Bromfed Dm Cough Syrup) 118 Ml Syrup 2018-04-30 00:00:00 Yes Lyudmila Rizvi Md 10 Every 4 Hours as needed for Cough [facility] Famotidine (Pepcid) 20 Mg Tablet Famotidine (Pepcid) 20 Mg T ablet 2018-04-30 00:00:00 Yes Lyudmila Rizvi Md 20 Twice A Day [facility] Prednisone 20 Mg Tab Prednisone 20 Mg Tab 2018-04-30 00:00:00 Yes Lyudmila Rizvi Md 60 Daily [facility] ondansetron ODT (ZOFRAN-ODT) 8 MG disintegrating tablet 2016-09-22 00:00:00 2019-05-27 00:00:00 No DIS 1 T PO Q 8 H PRN N [place] carvedilol (COREG) 3.125 MG tablet 2016-09-05 00:00:00 202 00:00:00 No 3.125mg Q2D Take 3.125 mg by mouth every other day. [place] Amylas/Cellu/Lipas/Protea/Bile ([place] 6,000 Units C apsule) 1 Mao Cap Amylas/Cellu/Lipas/Protea/Bile ([place] 6,000 Units Capsule) 1 Ea Cap 2016-06-09 00:00:00 Yes Danial Oquendo Md 2 Before Natalie ls [facility] Furosemide 40 Mg Tablet Furosemide 40 Mg Tablet 2016-06-09 00:00:00 Yes Danial Oquendo Md 20 Daily [facility] clopidogrel (PLAVIX) 75 mg tablet 2016-04-04 00:00:00 Yes 75mg QD Take 75 mg by mouth nightly. Shin [facility] CRESTOR 10 mg tablet 2016-04-04 00:00:00 Yes 10mg QD Take 10 mg by mouth nightly. [place] Aspirin (Aspir 81) 81 Mg Tablet. Aspirin (Aspir 81) 81 Mg Tablet. Yes 81 Daily [facility] Clopidogrel Bisulfate (Plavix) 75 Mg Tablet Clopidogre l Bisulfate (Plavix) 75 Mg Tablet Yes 75 Daily [facility] Rosuvastatin Calcium (Crestor) 10 Mg Tab Rosuvastatin Calcium (Crestor) 10 Mg Tab Yes 10 Daily [facility] Valsartan (Diovan) 80 Mg Tab Valsartan (Diovan) 80 Mg Tab Y es 80 Daily [facility] Vital Signs Vital Name Observation Time Observation Value Comments Source Systolic blood pressure 2019-09-11 14:14:00 116 mm[Hg] [place] Diastolic blood pressure 2019-09-11 14:14:00 58 mm[Hg] [place] Heart rate 2019-09-11 14:14:00 83 /min [place] Body temperature 2019-09-11 14:14:00 36.17 Kristine [place] Respiratory rate 2019-09-11 14:14:00 18 /min [place] Body height 2019-09-11 14:14:00 157.5 cm [place] Body weight 2019-09-11 14:14:00 39.055 kg [place] BMI 2019-09-11 14:14:00 15.75 kg/m2 [place] Oxygen saturation in Arterial blood by Pulse oximetry 13 14:14:00 96 /min [place] Procedures Procedure Date / Time Performed Performing Clinician Sourc e CARCINOEMBRYONIC ANTIGEN (CEA) 2019-09-09 08:45:00 Tico Miranda CANCER ANTIGEN 19-9 2019-09-09 08:45:00 Tico Miranda on [facility] [place] COMPREHENSIVE METABOLIC PANEL 2019-09-09 08:45:00 Tico Miranda Ed HC COMPLETE BLD COUNT W/AUTO DIFF 2019-09-09 08:45:00 Joseph Miranda MAGNESIUM LEVEL 2019-09-09 08:45:00 Tico Miranda ethodist ESTIMATED GFR 2019-09-09 08:45:00 Tico Miranda ethodist CARCINOEMBRYONIC ANTIGEN (CEA) 2019-09-02 09:24:00 Tico Miranda CANCER ANTIGEN 19-9 2019-09-02 09:24:00 Tico Miranda on [facility] [place] CBC WITH PLATELET AND DIFFERENTIAL 2019-09-02 09:01:00 Aneudy Miranda MANUAL DIFFERENTIAL 2019-09-02 09:01:00 Tico Miranda on [place] [place] COMPREHENSIVE METABOLIC PANEL 2019-09-02 08:43:00 Tico Miranda Edist MAGNESIUM LEVEL 2019-09-02 08:43:00 Tico Miranda ethodist ESTIMATED GFR 2019-09-02 08:43:[address] ABDOMEN WWO CONTRAST PELVIS W CONTRAST 2019-08-21 11:54:02 Que Enamorado [facility] [place] COMPREHENSIVE METABOLIC PANEL 2019-08-19 08:45:00 Tico Miranda Ed HC COMPLETE BLD COUNT W/AUTO DIFF 2019-08-19 08:45:00 Joseph Miranda [facility] [place] MAGNESIUM LEVEL 2019-08-19 08:45:00 Tico Miranda ethodist ESTIMATED GFR 2019-08-19 08:45:00 Tico Miranda ethodist CARCINOEMBRYONIC ANTIGEN (CEA) 2019-08-05 08:19:00 Tico Miranda [facility] [place] CANCER ANTIGEN 19-9 2019-08-05 08:19:00 Tico Miranda on [facility] [place] COMPREHENSIVE METABOLIC PANEL 2019-08-05 08:19:00 Tico Miranda Ed [facility] HC COMPLETE BLD COUNT W/AUTO DIFF 2019-08-05 08:19:00 Joseph iMranda [facility] [place] MAGNESIUM LEVEL 2019-08-05 08:19:00 Tico Miranda Edmarcos Garcia ethodist ESTIMATED GFR 2019-08-05 08:19:00 Tico Miranda Sihn Garcia ethodist CARCINOEMBRYONIC ANTIGEN (CEA) 2019-07-29 08:40:00 Tico Miranda [facility] [place] CANCER ANTIGEN 19-9 2019-07-29 08:40:00 Tico Miranda on [facility] [place] COMPREHENSIVE METABOLIC PANEL 2019-07-29 08:40:00 Tico Miranda Ed [facility] [place] CBC WITH PLATELET AND DIFFERENTIAL 2019-07-29 08:40:00 Aneudy Miranda [facility] [place] MAGNESIUM LEVEL 2019-07-29 08:40:00 Tico Miranda Jose ethodist ESTIMATED GFR 2019-07-29 08:40:00 Tico Miranda Jose ethodist MANUAL DIFFERENTIAL 2019-07-29 08:40:00 Tico Miranda on [place] [place] COMPREHENSIVE METABOLIC PANEL 2019-07-17 08:40:00 Tico Miranda Ed [facility] HC COMPLETE BLD COUNT W/AUTO DIFF 2019-07-17 08:40:00 Joseph Miranda Edmarcos Melissa [facility] MAGNESIUM LEVEL 2019-07-17 08:40:00 Tico Miranda M ethodist ESTIMATED GFR 2019-07-17 08:40:00 Tico Miranda M ethodist HC COMPLETE BLD COUNT W/AUTO DIFF 2019-07-12 04:00:00 Jeb June [facility] [place] BASIC METABOLIC PANEL 2019-07-12 04:00:00 Mari June n [facility] ESTIMATED GFR 2019-07-12 04:00:00 Mari June Meth odist POTASSIUM LEVEL 2019-07-11 16:10:00 SutariaMatheus [place] [place] CLOSTRIDIUM DIFFICILE TOXIN 2019-07-11 05:28:00 Slade Jasperlayla Melissa [facility] CBC WITH PLATELET AND DIFFERENTIAL 2019-07-11 03:30:00 Fan Jasperjune lu Melissa [facility] BASIC METABOLIC PANEL 2019-07-11 03:30:00 FanMari n [facility] [place] MAGNESIUM LEVEL 2019-07-11 03:30:00 Fan Jasperlayla Melissa Meth odist PHOSPHORUS LEVEL 2019-07-11 03:30:00 [facility] ESTIM[facility] GFR 2019-07-11 03:30:00 [facility] MANUAL DIFFERENTIAL 2019-07-11 03:30:00 Slade Jasperlayla Lott [facility] [place] MAGNESIUM LEVEL 2019-07-10 13:40:00 SutariaMatheus [place] [place] BASIC METABOLIC PANEL 2019-07-10 13:40:00 SutariaMatheus [facility] [place] PHOSPHORUS LEVEL 2019-07-10 13:40:00 [facility] ESTIMATED GFR 2019-07-10 13:40:00 SutariaMatheus ust[place] [facility] [place] CBC WITH PLATELET AND DIFFERENTIAL 2019-07-10 03:20:00 FanMillie Melissa [facility] BASIC METABOLIC PANEL 2019-07-10 03:20:00 Mari Jnue [facility] MAGNESIUM LEVEL 2019-07-10 03:20:00 Slade Jasperlayla Lott Jennifer odist PHOSPHORUS LEVEL 2019-07-10 03:20:00 Slade Jasperlayla Melissa Met hodist ESTIMATED GFR 2019-07-10 03:20:00 Slade Jasperlayla Melissa Meth odist MANUAL DIFFERENTIAL 2019-07-10 03:20:00 Fan Jasperlayla Melissa [facility] PROTEIN, URINE, RANDOM 2019-07-09 18:30:00 Matheus Colindres [facility] CREATININE LEVEL, URINE, RANDOM 2019-07-09 18:30:00 Luis Antonio Colindres [facility] MICROALBUMIN, URINE, RANDOM 2019-07-09 18:30:00 WallaceariaMatheus [facility] MAGNESIUM LEVEL 2019-07-09 17:44:00 SutariaMatheus Terence Iker angelita [facility] PHOSPHORUS LEVEL 2019-07-09 17:44:00 Matheus Colindres Terence Gonzalez shivaniamaya [facility] BASIC METABOLIC PANEL 2019-07-09 17:44:00 Matheus Colindres Jamiepankajannikacatalina Melissa [facility] ESTIMATED GFR 2019-07-09 17:44:00 Matheus Colindres Billieozzy Iker schulerangelita [facility] US RENAL 2019-07-09 16:37:06 Fan, Jasperlayla Melissa Meth odist GASTROINTESTINAL PANEL 2019-07-09 10:45:00 Fan, Mari matos [facility] CBC WITH PLATELET AND DIFFERENTIAL 2019-07-09 04:15:00 Fan, Millie Melissa [facility] PROTHROMBIN TIME WITH INR 2019-07-09 04:15:00 Fan, Mari rojo [facility] PARTIAL THROMBOPLASTIN TIME (PTT) 2019-07-09 04:15:00 Fan, Jeb Melissa [facility] B NATRIURETIC PEPTIDE 2019-07-09 04:15:00 Fan, Mari Pandey n [facility] CREATINE KINASE, TOTAL (CPK) 2019-07-09 04:15:00 Fan, Jasperlayla Melissa [facility] [place] COMPREHENSIVE METABOLIC PANEL 2019-07-09 04:15:00 Fan, Mari Melissa [facility] MAGNESIUM LEVEL 2019-07-09 04:15:00 Fan, Mari Lott Meth odist PHOSPHORUS LEVEL 2019-07-09 04:15:00 Fan, [facility] PREALBUMIN LEVEL 2019-07-09 04:15:00 Fan, [facility] THYROID STIMULATING HORMONE 2019-07-09 04:15:00 Fan, Jasperlayla Melissa [facility] T4, FREE 2019-07-09 04:15:00 Fan, Mari Lott Meth odist URIC ACID LEVEL 2019-07-09 04:15:00 Fan, Mari Melissa Meth odneel CANCER ANTIGEN 19-9 2019-07-09 04:15:00 Tico Miranda [facility] ESTIMATED GFR 2019-07-09 04:15:00 Tico Miranda ethodist BILIRUBIN DIRECT 2019-07-09 04:15:00 Tico Mirandaist MANUAL DIFFERENTIAL 2019-07-09 04:15:00 Tico Miranda [facility] URINE CULTURE 2019-07-08 18:57:00 Tico Miranda ethodist URINALYSIS SCREEN AND MICROSCOPY, WITH REFLEX TO CULTURE 17:40:00 Tico Miranda BLOOD CULTURE, AEROBIC & ANAEROBIC 2019-07-08 16:00:00 Aneudy Miranda CBC WITH PLATELET AND DIFFERENTIAL 2019-07-08 16:00:00 Mlilie June [facility] [place] COMPREHENSIVE METABOLIC PANEL 2019-07-08 16:00:00 Slade Mari Melissa [facility] [place] MAGNESIUM LEVEL 2019-07-08 16:00:00 Slade Mari Melissa Meth odist LACTIC ACID LEVEL 2019-07-08 16:00:00 Tico Miranda ESTIMATED GFR 2019-07-08 16:00:00 Slade Mari Melissa Meth odist MANUAL DIFFERENTIAL 2019-07-08 16:00:00 Slade Jasperlayla Melissa [facility] [place] COMPREHENSIVE METABOLIC PANEL 2019-07-08 09:00:00 Tico Miranda Ed CBC WITH PLATELET AND DIFFERENTIAL 2019-07-08 09:00:00 Aneudy Miranda MAGNESIUM LEVEL 2019-07-08 09:00:00 Tico Miranda ethodist ESTIMATED GFR 2019-07-08 09:00:00 Tico Miranda ethodist MANUAL DIFFERENTIAL 2019-07-08 09:00:00 Tico Miranda [place] [place] COMPREHENSIVE METABOLIC PANEL 2019-06-24 09:49:00 Tico Miranda Ed HC COMPLETE BLD COUNT W/AUTO DIFF 2019-06-24 09:49:00 Joseph Miranda MAGNESIUM LEVEL 2019-06-24 09:49:00 Tico Miranda M ethodist ESTIMATED GFR 2019-06-24 09:49:00 Tico Miranda M ethodist HC COMPLETE BLD COUNT W/AUTO DIFF 2019-06-13 05:06:00 Sa teressa Vora [facility] [place] BASIC METABOLIC PANEL 2019-06-13 05:06:00 Chris Vora [facility] ESTIMATED GFR 2019-06-13 05:06:00 Chris Vora Meth odist HC COMPLETE BLD COUNT W/AUTO DIFF 2019-06-12 04:08:00 Sa teressa Vora [facility] [place] D-DIMER 2019-06-12 04:08:00 Chris Vora Jennifer odist RETICULOCYTE COUNT 2019-06-12 04:08:00 Chris Vora ethodi PROTHROMBIN TIME WITH INR 2019-06-12 04:08:00 Fermin Banerjee BASIC METABOLIC PANEL 2019-06-12 04:00:00 Génesis Vorajune mendez [facility] [place] VITAMIN B12 LEVEL 2019-06-12 04:00:00 Chris Vora Me thodist FOLATE LEVEL 2019-06-12 04:00:00 Chris Vora Jennifer odneel FERRITIN LEVEL 2019-06-12 04:00:00 Chris Vora Jennifer odist ESTIMATED GFR 2019-06-12 04:00:00 Chris Vora odneel CYTOLOGY (NON-GYNECOLOGICAL) REQUEST 2019-06-11 12:43:00 Fermin Banerjee UPPER GI TRACT, ENDOSCOPIC 2019-06-11 11:56:00 Génesis Vora [place] ESOPHAGOGASTRODUODENOSCOPY (EGD) 2019-06-11 11:56:00 BurkeJeffrey rhonda Deal HC COMPLETE BLD COUNT W/AUTO DIFF 2019-06-11 04:40:00 ElodiamelissaSa emiliaora Melissa [facility] [place] BASIC METABOLIC PANEL 2019-06-11 04:00:00 ElodiaikerGénesis solisjune mendez [facility] ESTIMATED GFR 2019-06-11 04:00:00 Fermin Banerjee odneel BASIC METABOLIC PANEL 2019-06-09 04:10:00 Lina Catherine HC COMPLETE BLD COUNT W/AUTO DIFF 2019-06-09 04:10:00 Rg Catherine ESTIMATED GFR 2019-06-09 04:10:00 Lina Catherine [facility] [place] BASIC METABOLIC PANEL 2019-06-08 04:40:00 Fermin Banerjee [facility] HC COMPLETE BLD COUNT W/AUTO DIFF 2019-06-08 04:40:00 Rg Catherine [facility] [place] ESTIMATED GFR 2019-06-08 04:40:00 Fermin Banerjee Meth odist BASIC METABOLIC PANEL 2019-06-07 04:48:00 Fermin Banerjee [facility] HC COMPLETE BLD COUNT W/AUTO DIFF 2019-06-07 04:48:00 Rg Catherinenivas Shin [facility] ESTIMATED GFR 2019-06-07 04:48:00 Fermin Banerjee Meth odist HC COMPLETE BLD COUNT W/AUTO DIFF 2019-06-06 05:00:00 Mallory Banerjee [facility] [place] BASIC METABOLIC PANEL 2019-06-06 04:00:00 Fermin Banerjee n [facility] [place] ESTIMATED GFR 2019-06-06 04:00:00 Fermin Banerjee Meth odist HC COMPLETE BLD COUNT W/AUTO DIFF 2019-06-05 06:23:00 Mallory Banerjee [facility] [place] CARCINOEMBRYONIC ANTIGEN (CEA) 2019-06-05 06:23:00 Tico Miranda [facility] [place] CANCER ANTIGEN 19-9 2019-06-05 06:23:00 Tico Miranda [facility] D-DIMER 2019-06-05 06:23:00 Tico Miranda M ethodist XR CHEST 2 VW 2019-06-04 18:38:35 Tico Miranda M ethodist HC COMPLETE BLD COUNT W/AUTO DIFF 2019-06-04 04:05:00 Mallory Banerjee [facility] HC COMPLETE BLD COUNT W/AUTO DIFF 2019-06-03 05:25:00 Mallory Banerjee [facility] [place] COMPREHENSIVE METABOLIC PANEL 2019-06-03 05:25:00 Fermin Banerjee [facility] [place] ESTIMATED GFR 2019-06-03 05:25:00 Fermin Banerjee Meth odist HC COMPLETE BLD COUNT W/AUTO DIFF 2019-06-02 03:21:00 Mallory Banerjee [facility] [place] COMPREHENSIVE METABOLIC PANEL 2019-06-02 03:21:00 Fermin Banerjee [facility] [place] ESTIMATED GFR 2019-06-02 03:21:00 Fermin Banerjee Meth odist POTASSIUM LEVEL 2019-06-01 18:26:00 Fermin Banerjee Meth odist TROPONIN 2019-06-01 03:50:00 Fermin Banerjee Meth odist HC COMPLETE BLD COUNT W/AUTO DIFF 2019-06-01 03:50:00 MeghaMallory joiner [place] COMPREHENSIVE METABOLIC PANEL 2019-06-01 03:50:00 Fermin Banerjee [facility] ESTIMATED GFR 2019-06-01 03:50:00 Fermin Banerjee odist B NATRIURETIC PEPTIDE 2019-05-31 17:50:00 MeghaFermin joiner Dannie n [facility] [place] TROPONIN 2019-05-31 17:50:00 Fermin Banerjee odist TTE COMPLETE, WO CONTRAST, W DOPPLER ([id number]) 2019-05-31 16:30:00 Fermin Banerjee [facility] [place] LACTIC ACID LEVEL 2019-05-31 00:35:00 Natalie Wong [facility] POTASSIUM LEVEL 2019-05-30 23:00:[address] [facility] [place] [address] ABDOMEN PELVIS W CONTRAST 2019-05-30 21:29:34 Natalie Wnog [facility] URINE CULTURE 2019-05-30 18:51:00 MaojohanTina canales Shin Rodriguez odneel URINALYSIS SCREEN AND MICROSCOPY, WITH REFLEX TO CULTURE 18:34:00 MelryTina [place] HC COMPLETE BLD COUNT W/AUTO DIFF 2019-05-30 15:28:00 MerlyJeremie [place] COMPREHENSIVE METABOLIC PANEL 2019-05-30 15:28:00 MerlyTina Shin [facility] [place] LIPASE LEVEL 2019-05-30 15:28:00 MerlyTina Melissa Meth odist ESTIMATED GFR 2019-05-30 15:28:[address] Meth od[address] ABDOMEN W WO CONTRAST 2019-03-21 16:34:55 Chris Vora [facility] HC COMPLETE BLD COUNT W/AUTO DIFF 2019-03-19 13:48:00 Joseph Miranda COMPREHENSIVE METABOLIC PANEL 2019-03-19 13:48:00 Tico Miranda Ed AMYLASE LEVEL 2019-03-19 13:48:00 Tico Miranda ethodist LIPASE LEVEL 2019-03-19 13:48:00 Sebastian Tico Dyermarcos Garcia ethodist ESTIMATED GFR 2019-03-19 13:48:00 SebastianJosephk Que Garcia ethodist XR CHEST 2 VW 2019-02-21 14:31:00 Tico Miranda ethodist URINE CULTURE 2019-02-21 14:00:00 Joseph Mirandak Que Garcia ethodist GRAM STAIN 2019-02-21 14:00:00 Joseph Mirandak Que Garcia ethodist HC COMPLETE BLD COUNT W/AUTO DIFF 2019-02-21 13:41:00 Joseph Miranda COMPREHENSIVE METABOLIC PANEL 2019-02-21 13:41:00 Tico Miranda Ed ESTIMATED GFR 2019-02-21 13:41:00 Joseph Mirandak Que Garcia ethodist URINALYSIS SCREEN AND MICROSCOPY, WITH REFLEX TO CULTURE 201 01-09-24 13:38:00 Tico Miranda LIPASE LEVEL 2019-02-21 13:29:00 SebastianJosephk Que Garcia ethodist AMYLASE LEVEL 2019-02-21 13:29:00 Sebastian Tico Edmarcos Garcia ethodist COMPREHENSIVE METABOLIC PANEL 2019-02-21 13:29:00 Tico Miranda Ed ESTIMATED GFR 2019-02-21 13:29:00 Tico Miranda Edmarcos Melissa Jose ethodist CANCER ANTIGEN 19-9 2019-02-21 13:28:00 Tico [...] METABOLIC PANEL 2018-11-15 13:14:00 Tico Miranda Ed CANCER ANTIGEN 19-9 2018-11-15 13:14:00 Tico Miranda [place] [place] ESTIMATED GFR 2018-11-15 13:14:00 Tico Miranda Shin ethodist Plan of Care Planned Activity Planned Date Details Comments Source Future Scheduled Test 2019-11-30 00:00:00 INFLUENZA VACCINE [code = INFLUENZA VACCINE] [facility] Future Scheduled Test 2003-12-21 00:00:00 65+ PNEUMOCOCCAL V ACCINE (1 of 2 - PCV13) [code = 65+ PNEUMOCOCCAL VACCINE (1 of 2 - PCV13)] [facility] Future Scheduled Test 1988 00:00:00 SHINGLES VACCINES (#1) [code = SHINGLES VACCINES (#1)] [facility] Start Date/Time End Date/Time Encounter Type Admission Type [facility] Care Department Encounter ID Source 2019-09-11 00:00:00 2019-09-11 00:00:00 Outpatient [facility] [id number] [facility] 2019-09-09 00:00:00 2019-09-09 00:00:00 Outpatient [facility] [id number] [facility] 2019-09-02 00:00:00 2019-09-02 00:00:00 Outpatient [facility] [id number] [facility] 2019-08-21 00:00:00 2019-08-21 00:00:00 Outpatient [facility]DA [facility] [id number] [facility] 2019-08-21 00:00:00 2019-08-21 00:00:00 Outpatient ALLEY K[facility]N [facility] [id number] [place] [facility] 2019-08-21 00:00:00 2019-08-21 00:00:00 Outpatient [facility] [facility] [id number] [facility] 2019-08-19 00:00:00 2019-08-19 00:00:00 Outpatient TICO MIRANDA [facility] [id number] [place] [facility] 2019-08-07 00:00:00 2019-08-07 00:00:00 Outpatient TICO MIRANDA [facility] [id number] [place] [facility] 2019-08-05 00:00:00 2019-08-05 00:00:00 Outpatient TICO MIRANDA [facility] [id number] [place] [facility] 2019-08-05 00:00:00 2019-08-05 00:00:00 Outpatient TICO MIRANDA [facility] [id number] [place] [facility] 2019-07-29 00:00:00 2019-07-29 00:00:00 Outpatient TICO MIRANDA [facility] [id number] [place] [facility] 2019-07-19 00:00:00 2019-07-19 00:00:00 Outpatient TICO MIRANDA [facility] [id number] [place] [facility] 2019-07-17 00:00:00 2019-07-17 00:00:00 Outpatient GRECIASANJEEVTICO [facility] [id number] [place] [facility] 2019-07-08 00:00:00 2019-07-12 00:00:00 Inpatient MARI JUNE [facility] [id number] [place] [facility] 2019-07-08 00:00:00 2019-07-08 00:00:00 Outpatient TICO MIRANDA [facility] [id number] [place] [facility] 2019-07-05 20:50:00 2019-07-06 00:43:00 Departed Emergency Room [facility] [id number] [facility] 2019-07-03 10:39:00 2019-07-03 14:46:00 Departed Emergency Room [facility] [id number] [facility] 2019-07-01 00:00:00 2019-07-01 00:00:00 Outpatient TICO MIRANDA [facility] [id number] [place] [facility] 2019-06-29 15:58:00 2019-06-29 18:39:00 Departed Emergency Room [facility] [id number] [facility] 2019-06-26 00:00:00 2019-06-26 00:00:00 Outpatient GRECIASANJEEV TICO Canales [facility] [id number] [place] [facility] 2019-06-24 00:00:00 2019-06-24 00:00:00 Outpatient TICO MIRANDA [facility] [id number] [place] [facility] [place] 2019-05-30 00:00:00 2019-06-13 00:00:00 Inpatient FERMIN BANERJEE [facility] [id number] [place] [facility] [place] 2019-05-27 00:00:00 2019-05-27 00:00:00 Outpatient [facility] [id number] [place] [facility] 2019-05-27 00:00:00 2019-05-27 00:00:00 Outpatient ALLEY KUHN [facility] [id number] [place] [facility] 2019-05-27 00:00:00 2019-05-27 00:00:00 Outpatient ALLEY KUHN [facility] [id number] [place] [facility] 2019-05-06 18:09:00 2019-05-06 20:32:00 Departed Emergency Room 1 BUFFY ROSAS [facility] [id number] [facility] 2019-04-09 14:52:00 2019-04-30 23:59:00 Discharged Recurring [facility] [id number] [facility] 2019-03-21 00:00:00 2019-03-21 00:00:00 Outpatient NOEL VORA [facility] [id number] [place] [facility] 2019-02-21 00:00:00 2019-02-21 00:00:00 Outpatient TICO MIRANDA [facility] [id number] [place] [facility] 2019-02-08 00:00:00 2019-02-08 00:00:00 Outpatient TICO MIRANDA [facility] [id number] [place] [facility] 2018-04-19 10:16:00 2018-04-30 23:59:[address] [facility] [id number] [facility] 2018-04-30 00:53:00 2018-04-30 02:31:00 Departed Emergency Room [facility] [id number] [facility] 2018-03-01 12:05:00 2018-03-30 23:59:00 Discharged Recurring [facility] [id number] [facility] 2018-02-22 11:38:00 2018-02-28 23:59:00 Discharged Recurring [facility] [id number] [facility] Results Test Description Test Time Test Comments Results Result Comments Source CT ABD/PEL WITH CONTRAST-HOPD 2019-09-21 20:54:00 [facility] [address] [address] Patient Name: LUNA PARDO MR #: [id number] : 1940 Age/Sex: 78/F Req #: [id number] Adm Physician: Ordered by: JEAN DE LA ROSA DO Report #: [id number] Location: [facility] Room/Bed: Procedure: [id number] HOPD/CT ABD/PEL WITH CONTRAST-HOPD Exam Date: 09/21/19 Exam Time: 2039 REPORT STATUS: Signed EXAM: CT Abdomen and Pelvis WITH contrast INDICATION: Abdominal pin, fever. COMPARISON: Report from CT abdomen/pelvis dated 06/02/2016, although the images are not available for review. TECHNIQUE: Abdomen and pelvis were scanned utilizing [facility] scanner from the lung base to the pubic symphysis after administration of IV contrast. Coronal and sagittal reformations were obtained. Routine protocol was performed. Scan was performed during portal venous phase. IV CONTRAST: 100 cc of Isovue-370 ORAL CONTRAST: None COMPLICATIONS: None RADIATION DOSE: Total DLP: 175 mGy*cm Estimated effective dose: (DLP x 0.015 x size factor) mSv CTDIvol has been reviewed. It is below the limits set by the Radiation Protocol Committee (RPC). FINDINGS: LINES and TUBES: None. LOWER THORAX: Severe emphysematous changes of the lung bases. Mild dependent patchy/linear opacities may represent atelectasis or scarring.. HEPATOBILIARY: No evidence of focal mass. No biliary ductal dilatation. GALLBLADDER: Cholelithiasis without inflammatory changes. SPLEEN: No splenomegaly. Mild wedge-shaped hypodensities along the superior aspect of the spleen may represent age-indeterminate infarcts. PANCREAS: Limited evaluation of the pancreas secondary to technique. There is an ill-defined hypodense pancreatic body mass measuring approximately 3.2 x 2.9 x 2.3 cm (AP x TV x SI). The mass extends to the origin and along the proximal SMA with 360 degree circumferential involvement around the SMA. There is variant anatomy with origination of the common hepatic artery and the splenic artery from the abdominal aorta. There is a circumferential (360 degree involvement) of the common hepatic artery proximally and the splenic artery. There is attenuation of the splenic artery with nonvisualization of the proximal to midportion. There is attenuation of the common hepatic artery. The splenic artery origin is attenuated by the mass. There is likely pancreatic ductal dilatation along the head and uncinate process, although evaluation is limited. There is a 3.8 x 5.4 x 3.6 cm cystic lesion along the expected location of the pancreatic ta il, abutting the posterior margin of the stomach and the medial margin of the spleen. Postsurgical clips versus calcifications along the distal pancreas. ADRENALS: No adrenal nodules KIDNEYS/URETERS: Kidneys enhance symmetrically. No evidence of hydronephrosis. Nonobstructing 5 mm right lower pole renal stone. Indeterminant 0.9 cm left upper pole renal hypodensity (series 2, image 19; 22 Hounsfield units). Indeterminate 0.7 cm exophytic left lower pole renal hypodensity with limited evaluation secondary to volume averaging (series 2, image 33). Indeterminate 1.6 cm right lower pole exophytic hypodense lesion density series 2, image 34; 44 Hounsfield units). GI TRACT: There is mural enhancement within the stomach and scattered small bowel loops. There is colonic wall thickening and inflammatory changes at the hepatic flexure. Moderate stool burden in the rectum. There is some liquid stool in the descending colon (series 2, image 30) PELVIC ORGANS/BLADDER: Status post hysterectomy. LYMPH NODES: No lymphadenopathy. VESSELS: Pancreatic mass involvement of the SMA, proximal common hepatic artery and splenic artery as above. Variant anatomy with origination of the common hepatic and splenic arteries from the abdominal aorta. Nonvisualization of the splenic vein and the SMV with peripancreatic and anterior abdominal collaterals. The distal SMA branches appear grossly patent, although evaluation is limited secondary to phase of contrast. The CORINE appears patent. Prominent left pelvic venous collaterals. There is severe atherosclerotic disease in the aorta and major arterial branches. Calcified and noncalcified plaque within the abdominal aorta. Right common and external iliac artery stents and left external artery stent appears patent. Mildly ectatic distal abdominal aorta at the origin, measuring up to 1.9 cm. PERITONEUM / RETROPERITONEUM: No free air or fluid. BONES AND SOFT TISSUES: No acute osseous abnormality. No suspicious lytic or blastic lesions. Mild degenerative disc changes. CONCLUSION: Wall thickening at the hepatic flexure with inflammatory changes suggestive of colitis, which may be infectious/inflammatory (in the setting of fever and associated gastroenteritis) or ischemic. There are severe calcified and noncalcified atherosclerotic changes of the abdominal aorta and branch vessels. While the SMA origin is attenuated secondary to pancreatic mass, the major branches appear grossly patent, although evaluation is limited of the distal branches in the absence of arterial phase images. The CORINE appears grossly patent. If clinical concern for mesenteric ischemia, then a follow-up dedicated CT angiogram is suggested. Reported history of late stage pancreatic cancer. Pancreatic body hypodense mass with circumferential involvement of the celiac artery and SMA proximally. There is nonvisualization of the SMV and splenic vein, which are likely thrombosed with peripancreatic and anterior abdominal wall collaterals. No definite lymphadenopathy or hepatic mass is identified. Correlation with prior history and comparison with outside imaging would be he lpful. Consider follow-up pancreatic protocol CT or MRI if prior imaging is not available. A cystic lesion measuring simple fluid attenuation measuring up to 5.4 cm in the expected location of the distal pancreas, likely pseudocyst. Prior CT from 06/02/2016 (images not available for review at the time of this dictation), reported a 1.5 cm pseudocyst in the distal pancreatic body. The above findings were discussed with Dr. De La Rosa on 09/21/2019 at 9:30 PM. Bilateral subcentimeter cystic lesions, some of which are indeterminate. If clinically indicated, a follow-up renal ultrasound or renal protocol CT or MRI may be considered. Cholelithiasis without evidence of cholecystitis. Age-indeterminate suspected small splenic infarcts. Signed by: Dr. Andrew Freeman MD on 09/21/2019 9:43 PM Dictated By: ANDREW FREEMAN MD 42 Transcribed By: BRETT on 09/21/192142 COPY TO: JEAN DE LA ROSA DO Cancer antigen 19-9 2019-09-09 11:17:41 Test Item CA 19-9 (test code = 1006) 156 U/mL 0-35 H T he Sergio Wm 8000 CA19-9 immunoassay was used. Results obtained with different assay methods or kits should not be used interchangeably and may be different. Lab Interpretation (test code = 32065-7) Abnormal [facility]ott MethodistCarcinoembryonic antigen (CEA)2019-09-09 11:16:52* Test Item Value Reference Range Interpretation Comments CEA (test code = 2038-) 4.7 ng/mL 0-3.8 H Ref erence range for heavy smokers: 0.0 - 5.5 ng/mLThe SERGIO Wm 8000 CEA immunoassay was used. Results obtained with different assay methods or kits should not be used interchangeably and may be different. Lab Interpretation (test code = 09926-0) Abnormal [facility] MethodistComprehensive metabolic cvdxb2220-84-77 10:18:35* Test Item Value Reference Range Interpretation Comments Sodium (test code = 2951-2) 135 135- 148 mEq/L Potassium (test code = 2823-3) 5.0 3.5- 5.0 mEq/L Chloride (test code = 2075-0) 101 98- 112 mEq/L CO2 (test code = 2027-9) 23 24- 31 mEq/L L Anion gap (test code = 31814-3) 11@ANIO 7- 15 mEq/L BUN (test code = 3094-0) 17 mg/dL 8-23 Creatinine (test code = 2160-0) 0.94 mg/dL 0.5-0.9 H Glucose (test code = 2345-7) 114 mg/dL 65-99 H Calcium (test code = 30086-2) 8.9 mg/dL 8.8-10.2 Protein (test code = 2885-2) 6.8 g/dL 6.3-8.3 - 4.6- 7.0 g/dL1 week 4.4-7.6 g/dL7 months-1year 5.1-7.3 g/dL1-2 years 5.6-7.5 g/dL>3 years 6.0-8.0 g/nP18-911 6.3-8.3 g/dL Albumin (test code = 1751-7) 2.1 g/dL 3.5-5 L A/G ratio (test code = 1759-0) 0.4 0.7-3.8 L Alkaline phosphatase (test code = 6768-6) 121 U/L 35-104 H AST (test code = 1920-8) 20 U/L 10-35 ALT (test code = 1742-6) 13 U/L 5-50 Total bilirubin (test code = 1975-2) <0.2 0-1.2 Lab Interpretation (test code = 05094-0) Abnormal [place] MethodistMagnesium kazoo0664-37-43 10:18:35* Test Item Value Reference Range Interpretation Comments Magnesium (test code = 87553-3) 2.3 mg/dL 1.6-2.4 Lott MethodistEstimated IFZ7540-14-01 10:18:34* Test Item Value Reference Range Interpretation Comments Estimated GFR (test code = 5488) 57 mL/min/1.73 m2 A Catergory Units InterpretationG1 >=90 Normal or highG2 60-89 Mildly wcbozsojrP1o 45-59 Mildly to moderately gompodxyxO2x 30-44 Moderately to severely decreasedG4 15-29 Severely decreasedG5 <15 Kidney failureThe eGFR was calculated using the Chronic Kidney Disease Epidemiology Collaboration (CKD-EPI) equation. Interpretation is based on recommendations of the National Kidney Foundation-Kidney Disease Outcomes Quality Initiative (NKF-KDOQI) published in 2014. Lab Interpretation (test code = 90546-8) Abnormal [place] MethodistCBC with platelet and vfkioluzqsth8207-16-19 09:13:56* Test Item Value Reference Range Interpretation Comments WBC (test code = 25706-5) 8.16 4.50- 11.00 k/uL RBC (test code = 28087-5) 2.56 m/uL 4.2-5.5 L HGB (test code = 718-7) 7.7 g/dL 12-16 L HCT (test code = 4544-3) 25.8 % 37-47 L MCV (test code = 787-2) 100.8 fL 82-100 H MCH (test code = 785-6) 30.1 pg 27-34 MCHC (test code = 786-4) 29.8 g/dL 31-37 L RDW - SD (test code = 67751-4) 66.4 fL 37-55 H MPV (test code = 78754-8) 9.4 fL 8.8-13.2 Platelet count (test code = 21123-3) 400 150- 400 k/uL Nucleated RBC (test code = 85517-3) 0.00 /100 WBC Neutrophils (test code = 62374-2) 71.1 % 39-69 H Lymphocytes (test code = 79423-5) 14.5 % 25-45 L Monocytes (test code = 37418-6) 12.6 % 0-10 H Eosinophils (test code = 18447-9) 0.2 % 0-5 Basophils (test code = 51569-2) 0.5 % 0-1 Immature granulocytes (test code = 55397-9) 1.1 % 0-1 H "Immature granulocytes" (promyelocytes, myelocytes, metamyelocytes) Lab Interpretation (test code = 70246-9) Abnormal [place] MethodistManual mtjwjfdxlzer9805-61-16 10:03:41* Test Item Value Reference Range Interpretation Comments Manual differential (test code = 69640-2) PERFORMED Neutrophils (test code = 95391-5) 27.0 % 39-69 L Lymphocytes (test code = 06886-7) 42.0 % 25-45 Monocytes (test code = 08686-4) 29.0 % 0-10 H Eosinophils (test code = 31267-8) 0.0 % 0-5 Basophils (test code = 11534-5) 0.0 % 0-1 Metamyelocytes (test code = 740-1) 1 % Myelocytes (test code = 749-2) 1 % Promyelocytes (test code = 783-1) 0 % Platelet slide review (test code = 07990-2) Gabrielle adequate Anisocytosis (test code = 702-1) Moderate Polychromasia (test code = 72481-0) Moderate Ovalocytes (test code = 774-0) Moderate Enlarged platelets (test code = 61104-3) Moderate A Lab Interpretation (test code = 56036-8) Abnormal [facility] Cont[facility], Pelvis W Pfjfinqe6869-59-48 12:16:20Hm Interface, Radiology Results 08/21/2019 12:19 PM [...] in the hep atic flexure. Malignancy not excluded.[facility]-NR40YPNBKatqrbw MethodistBasic metabolic mqget0775-98-42 05:32:52* Test Item Value Reference Range Interpretation Comments Sodium (test code = 2951-2) 140 135- 148 mEq/L Potassium (test code = 2823-3) 4.5 3.5- 5.0 mEq/L Chloride (test code = 2075-0) 103 98- 112 mEq/L CO2 (test code = 2027-9) 28 24- 31 mEq/L Anion gap (test code = 91436-3) 9@ANIO 7- 15 mEq/L BUN (test code = 3094-0) 7 mg/dL 8-23 L Creatinine (test code = 2160-0) 0.80 mg/dL 0.5-0.9 Glucose (test code = 2345-7) 145 mg/dL 65-99 H Calcium (test code = 62271-7) 8.3 mg/dL 8.8-10.2 L Lab Interpretation (test code = 76094-2) Abnormal [place]ott MethodistPotassium wemmn4422-21-65 17:09:06* Test Item Value Reference Range Interpretation Comments Potassium (test code = 2823-3) 4.6 3.5- 5.0 mEq/L [facility] difficile otfth8010-29-38 14:35:35* Test Item Value Reference Range Interpretation Comments Clostridium difficile toxin (test code = 1085) No Clos tridium difficle toxin present Specimen Information Specimen Source: StoolSpecimen Site: Nonpreserved Lott Latter DayPhosphorus rhkqz8834-97-51 05:21:36* Test Item Value Reference Range Interpretation Comments Phosphorus (test code = 2777-1) 3.3 mg/dL 2.4-4.5 Lott Latter DayGastrointestinal seqwx0849-28-97 10:50:47Gastrointestinal panelNegative for all pathogens tested:Negative for [...] Comment: Specimen InformationSpecimen Source: StoolSpecimen Site: Nonpreserved [place] OSPITALShin MethodistMicroalbumin, urine, nohrnm2406-26-74 21:55:23* Test Item Value Reference Range Interpretation Comments Total volume, urine (test code = 90706-6) No volume mL Urine creatinine concentration (test code = 07934-8) 39 mg/dL Urine microalbumin concentration (test code = 69021-0) <1.2 mg/dL Urine microalbumin/creatinine ratio (test code = 26598-8) SEE COMME NT 0-30 Unable to calculate due to low analyte concentration. Melissa MethodneelProtein, urine, hpqqdg8925-77-46 21:54:38* Test Item Value Reference Range Interpretation Comments Protein, urine random (test code = 2888-6) 36 mg/dL Lott MethodistCreatinine level, urine, lyfkmc0410-81-33 21:54:37* Test Item Value Reference Range Interpretation Comments Creatinine, urine, random (test code = 95366-1) 39 mg/dL Shin LoeraistUS Ekpjc5941-42-50 16:42:00Hm Interface, Radiology Results 07/09/2019 4:45 PM [...] adder is unremarkable in sonographic appearance. HMSL-2 TH1023E19Dcyzsls MethodistBilirubin vkmahv5819-71-50 06:36:50* Test Item Value Reference Range Interpretation Comments Bilirubin direct (test code = 1968-7) <0.2 0-0.3 Lott MethodistCreatine kinase, total (CPK)2019-07-09 06:36:50* Test Item Value Reference Range Interpretation Comments Creatine kinase (test code = 2157-6) 38 U/L 26-192 Lott MethodistT4, fagu4005-72-22 06:36:50* Test Item Value Reference Range Interpretation Comments T4, free (test code = 3024-7) 1.0 ng/dL 0.9-1.7 Lott MethodistThyroid stimulating ijuupvj4176-18-20 06:36:50* Test Item Value Reference Range Interpretation Comments TSH (test code = 3016-3) 3.85 0.27- 4.20 uIU/mL Lott MethodistUric acid mkbgc0063-43-17 06:36:50* Test Item Value Reference Range Interpretation Comments Uric acid (test code = 3084-1) 3.5 mg/dL 2.4-5.7 Lott MethodistPrealbumin tiekl7171-78-92 06:23:22* Test Item Value Reference Range Interpretation Comments Prealbumin (test code = 6793-4) <3 16-32 L Lab Interpretation (test code = 11049-7) Abnormal Lott MethodistB natriuretic yxrrdmy4020-51-39 06:22:01* Test Item Value Reference Range Interpretation Comments BNP (test code = 61333-2) 250 pg/mL 0-100 H Lab Interpretation (test code = 14951-0) Abnormal Lott MethodistPartial thromboplastin time, ifcgtwtzi1148-82-31 05:54:54* Test Item Value Reference Range Interpretation Comments PTT (test code = 86125-8) 40.3 23.0- 36.0 sec H PTT therapeutic range for unfractionated heparin is61.0-112.0 seconds which corresponds to Anti-Xa0.3-0.7 U/ml. Lab Interpretation (test code = 97603-6) Abnormal Lott MethodistProthrombin time with WOL3003-80-29 05:54:06* Test Item Value Reference Range Interpretation Comments Prothrombin time (test code = 5902-2) 15.8 11.5- 14.5 sec H INR (test code = 35877-7) 1.2 Th e International Normalized Ratio (INR) is a therapeutic monitoring tool for patients who are stable on oral anticoagulant therapy. An INR of 2.0-3.0 is suggested for deep vein thrombosis/pulmonary embolism. Lab Interpretation (test code = 10194-7) Abnormal Lott MethodistUrinalysis screen and microscopy, with reflex to culture 2019-07-08 22:31:13* Test Item Value Reference Range Interpretation Comments Specimen site (test code = 1805239) Clean catch Color, UA (test code = 5778-6) Yellow Appearance, UA (test code = 5767-9) Hazy Specific gravity, UA (test code = 5811-5) 1.010 1.001-1.035 pH, UA (test code = 5803-2) 6.0 5.0-8.5 Protein, UA (test code = 09192-4) 1+ Negative A Glucose, UA (test code = 76947-5) Negative Negative Ketones, UA (test code = 2514-8) Negative Negative Bilirubin, UA (test code = 5770-3) Negative Negative Blood, UA (test code = 5794-3) Moderate Negative A Nitrite, UA (test code = 5802-4) Negative Negative Urobilinogen, UA (test code = 22026-7) <2.0 <2.0 Leukocyte esterase, UA (test code = 5799-2) Small Negative A Epithelial cells, UA (test code = 5787-7) 2 /HPF WBC, UA (test code = 5821-4) 93 0- 4 /HPF H RBC, UA (test code = 99102-2) 1 0- 5 /HPF Bacteria, UA (test code = 36162-7) Moderate None seen A WBC clumps, UA (test code = 34144-3) Few A Yeast, UA (test code = 08759-4) None seen Yeast with pseudohyphae, UA (test code = 39621-2) None seen Hyaline casts, UA (test code = 5796-8) 3 /LPF Lab Interpretation (test code = 78309-9) Abnormal Lott MethodistLactic acid iarox2279-46-88 17:17:49* Test Item Value Reference Range Interpretation Comments Lactic acid (test code = 76772-3) 2.3 mmol/L 0.5-2.2 H Lab Interpretation (test code = 91445-4) Abnormal Lott MethodistCytology (non-gynecological) usmjmix8403-61-02 16:51:15* Test Item Value Reference Range Interpretation Comments Case number (test code = 5784782) [id number] Cytology (non-gynecological) report (test code = 1178) See link below for PDF Lab Report Result status (test code = 3938883) This is Final Report for [id number] Melissa MethodistVitamin B12 shgrz7145-63-80 08:18:55* Test Item Value Reference Range Interpretation Comments Vitamin B12 (test code = 2132-9) 554 pg/mL 211-946 Significant overlap exists between normal and deficiency states.However, most patients with deficiencies will have Serum B12 <200 pg/mL. Melissa UoguwsvlkK-debsc0307-82-12 06:25:14* Test Item Value Reference Range Interpretation Comments D-dimer (test code = 14244-2) 1.32 0.00- 0.40 ug/mL FEU H Units [...] and malignancies. Lab Interpretation (test code = 36708-0) Abnormal Lott MethodistFolate mimmp7630-75-37 05:58:56* Test Item Value Reference Range Interpretation Comments Folate (test code = 2284-8) 9.3 ng/mL 4.8-24.2 Lott MethodistFerritin tieej7463-94-61 05:49:31* Test Item Value Reference Range Interpretation Comments Ferritin level (test code = 2276-4) 51 ng/mL 13-150 Lott MethodistReticulocyte ggxdf8998-46-77 05:43:50* Test Item Value Reference Range Interpretation Comments Retic %, auto (test code = 67725-0) 2.5 % 0.5-2.1 H Retic absolute, auto (test code = 33747-3) 0.0862 m/uL 0.021-0.115 5 Lab Interpretation (test code = 43942-1) Abnormal Lott MethodistXR Chest 2 My6613-78-47 18:44:05Hm Interface, Radiology Results 06/04/2019 6:47 PM CSTEXAMINATION: XR CHEST 2 VWCLINICAL HISTORY: hx pancreatic cancerCOMPARISON: Chest x-ray 02/21/2019IMPRESSION: Frontal and lateral views reveal a stable cardiomediastinal silhouette with right-sided Port-A-Cath in place. Left basilar opacification has developed concerning for pneumonia and/or effusion. Right hemithorax is clear. The remainder of the examination is unchanged.[facility]-[id number] MethodistEchocardiogram complete w contrast and 3D if jgculv7541-30-30 22:03:00Interface, Radiology Results In - 06/01/2019 10:06 PM [facility] Echocardiography Report [address] [place] [address] Pat.Name: LUNA PARDO Pat.ID: [id number] .Date: 05/31/2019 Refer.MD: FERMIN BANERJEE MD Exam Time: 3:12:00 PM Study Type:Routine Echo Height: 62in Weight: 86lb BSA: 1.34 m2 Age: 8 1940,78Y Sex: FEMALE BP: 92/54 HR: 71 bpm Sonogrphr: JENNIFER Silva Pat. Stat.:[place] [facility] [place]:Final Echo Event ID:[id number] Order ID: [id number] Reason for Study:HF Procedures: 2D Echo, Colorflow [...] estimate PA systolic pressure. MEASUREMENTS: 2DParasternal Long [place] IVSd 0.66 cm LA Ds 2.9 cm [...] LVOT CI 2.3 l/m/m2 Signed 06/01/2019 10:03 Katia Craig Jchaogtx1295-00-10 06:48:12* Test Item Value Reference Range Interpretation Comments Troponin (test code = 43366-6) 0.011 ng/mL 0-0.04 In patients suspected of [...] OR decreased by less than 0.020 ng/mL Lott MethodistCT Abdomen Pelvis W Iyagjysk6840-72-00 21:57:08Hm Interface, Radiology Results 05/30/2019 10:00 PM [...] rticulosis without evidence of diverticulitis.8.Status post hysterectomy. [facility]-[id number] MethodistLipase [id number] 17:17:10* Test Item Value Reference Range Interpretation Comments Lipase (test code = 3040-3) 10 U/L 13-60 L Lab Interpretation (test code = 83862-7) Abnormal [facility]ott MethodistCXR 2 VIEW - [id number] 19:44:00 [facility] [address] [place] [address] Patient Name: LUNA PARDO MR #: [id number] : 1940 Age/Sex: 78/F Req #: [id number] Adm Physician: Ordered by: BUFFY ROSAS MD Report #: [id number] Location: [facility] Room/Bed: Procedure: [id number] HOPD/ CXR 2 VIEW - [facility] Exam Date: 05/06/19 Exam Time: 192 0 REPORT STATUS: Signed EXAMINAT ION: [facility] IND[facility]: Cough and congestion. [id number] COMPARISON: None [...] above.2.No evidence of metastatic disease in the abdomen.[facility]-[id number] and approved by vice president/fellow: Sahil Newberry M.D.I, And cortney Dominguez MD, personally reviewed the images and resident's/fellow's findings and agree with the final report.[facility]ott MethodistAmylase [id number] 15:49:30* Test Item Value Reference Range Interpretation Comments Amylase (test code = 1798-8) 26 U/L 28-100 L Lab Interpretation (test code = 47499-2) [facility] [id number] 03:42:57Gram stain resultRare WBC'sNo organisms seen Comment: Specimen InformationSpecimen Source: UrineSpecimen Site: Clean catch [facility]
[2019-09-21] MEDS ORDERED: MORPHINE SULFATE INJ 4 MG/ML INJ 1ML IV PRN (22:30)
--- NOTE | 2019-09-21 22:54 | NUR ---
PT EATING WITH DAUGHTER AND DRINKING MORE JUICE THAT DAUGHTER BROUGHT HER. AWAITING ICU BED TO BE CLEANED AT [facility]
--- NOTE | 2019-09-21 23:12 | NUR ---
AWAITING FARIDA ALVARADO TO CALL BACK SHE IS IN WITH A PT AT THIS TIME
[2019-09-21] MEDS: SODIUM CHLORIDE 0.9% 1000ML 1,000 ML IV SCH (23:25)
[2019-09-21] MEDS ORDERED: SODIUM CHLORIDE 0.9% 1000ML 1,000 ML ONE (23:26)
--- NOTE | 2019-09-21 23:40 | NUR ---
CALL [facility] FOR TRANSPORT
[2019-09-21] MEDS: ONDANSETRON HCL INJ 2MG/ML 2ML 2 MG/ML VIAL IV PRN (23:45)
[2019-09-22] VITALS (26 sets, daily range): BP systolic 90–140; BP diastolic 31–89
--- NOTE | 2019-09-22 00:11 | NUR ---
REPORT TO FARIDA ALVARADO FOR ICU 191.
[2019-09-22] MEDS: SODIUM CHLORIDE 0.9% 1000ML 1,000 ML IV SCH ×2 (03:10→12:27)
[2019-09-22] MEDS: ONDANSETRON HCL INJ 2MG/ML 2ML 2 MG/ML VIAL IV PRN ×2 (03:58→15:19)
[2019-09-22 06:16] LABS: BASOPHILS % 0.4 % (0.0-1.0); LYMPHOCYTES # (AUTO) 0.8 (1.0-3.2); LYMPHOCYTES % 29.7 % (18.0-39.1); MEAN CORPUSCULAR HEMOGLOBIN 28.8 pg (28-32); MEAN CORPUSCULAR HGB CONC 28.7 g/dL (31-35); MEAN CORPUSCULAR VOLUME 100.4 fL (81-99); MONOCYTES # (AUTO) 0.5 (0.2-0.8); NEUTROPHILS # (AUTO) 1.4 (2.1-6.9); NEUTROPHILS % 51.8 % (38.7-80.0); PLATELET COUNT 191 x10e3/uL (140-360); RED BLOOD COUNT 2.29 x10e6/uL (3.6-5.1); RED CELL DISTRIBUTION WIDTH 18.9 % (11.7-14.4)
[2019-09-22 06:30] LABS: HEMOGLOBIN 6.6 g/dL (12.0-16.0)
[2019-09-22 06:42] LABS: ALANINE AMINOTRANSFERASE 15 IU/L (0-55); ALBUMIN 2.1 g/dL (3.5-5.0); ALBUMIN/GLOBULIN RATIO 0.5 (0.8-2.0); ALKALINE PHOSPHATASE 83 IU/L (40-150); BLOOD UREA NITROGEN 10 mg/dL (7-26); BUN/CREATININE RATIO 13 (6-25); CALCIUM 8.4 mg/dL (8.4-10.2); CARBON DIOXIDE 20 mmol/L (22-29); CHLORIDE 109 mmol/L (98-107); CREATININE, SERUM 0.77 mg/dL (0.57-1.11); EST GLOMERULAR FILTRATION RATE > 60 ML/MIN (60-); GLUCOSE 114 mg/dL (74-118); SODIUM 139 mmol/L (136-145)
[2019-09-22] MEDS ORDERED: SODIUM CHLORIDE 0.9% 250ML 250 ML IV ONE (07:15)
[2019-09-22] MEDS ORDERED: PROMETHAZINE 12.5MG/ NACL 0.9% 12.5 MG/50 ML BAG IV PRN (07:15)
[2019-09-22 07:18] LABS: CREATINE KINASE MB 0.5 ng/mL (0-5.0)
--- NOTE | 2019-09-22 07:22 | NUR ---
NOTIFIED DR. VALLEJO AND DR. Sariah ANNE OF CONSULTATION REQUEST FOR PT. DR. VALLEJO HAS NOT CALLED BACK AT THIS TIME. CRITICAL LABS READ TO DR ANNE. NEW ORDERS FOR 1 UNIT PRBC, PHENERGAN, AND CONSULTATION TO DR. RODRIGUEZ, WHICH HAS BEEN PLACED @ 728. RN NOTIFIED.
--- NOTE | 2019-09-22 09:51 | Consultation ---
DATE OF CONSULTATION: Pulmonary Critical Care Consultation CHIEF COMPLAINT: Nausea, vomiting and abdominal discomfort. HISTORY OF PRESENT ILLNESS: The patient is an 78-year-old woman. She has a history of pancreatic cancer diagnosed 3.5 ago. She received radiation and chemotherapy. She recently had a recurrence and was started on salvage chemotherapy. She had her last chemotherapeutic regimen about 2 weeks ago. She now complains of nausea and vomiting. She also notes some shaking. She has some mild abdominal pain as well as diarrhea. PAST MEDICAL HISTORY: 1. Pancreatic cancer. 2. Remote history of a myocardial infarction requiring stent placement. 3. Hypertension. 4. Hyperlipidemia. PAST SURGICAL HISTORY: 1. Status post coronary artery stent. 2. Status post hysterectomy. 3. Status post left carotid endarterectomy. SOCIAL HISTORY: The patient is not a smoker or drinker. FAMILY HISTORY: Significant for diabetes and lung cancer. ALLERGIES: THE PATIENT IS ALLERGIC TO PENICILLIN, SULFA, LEVOFLOXACIN, AND CIPROFLOXACIN. REVIEW OF SYSTEMS: Significant for possible fevers. She has had shaking. She denies headache. There is no neck pain. She has no chest pain. She is not having difficulty breathing. She has some abdominal discomfort. She has diarrhea as well as nausea. She does not complain of leg edema. PHYSICAL EXAMINATION: VITAL SIGNS: The blood pressure is 104/48 and the pulse is 94% on room air. HEENT: Shows no facial swelling or erythema. CARDIAC: Reveals regular rate and rhythm with normal S1 and S2. LUNGS: Auscultation of lungs shows decreased breath sounds at the bases. There is no wheezing. ABDOMEN: Soft. There is mild tenderness. There is no rebound or guarding. EXTREMITIES: Show no leg edema or calf tenderness. There is no cyanosis or clubbing. SKIN: Shows no rashes. NEUROLOGICAL: Shows no focal abnormalities. LABORATORY DATA: White blood cell count is 2.76 and hemoglobin is 6.6. The platelet count is 191. BUN to creatinine ratio is 10 to 0.77, and the carbon dioxide is 20 with chloride of 109 and a sodium of 129. Lactic acid is elevated at 3.4 and the albumin is 2.1. RADIOGRAPHIC DATA: CT scan of the abdomen and pelvis shows inflammatory changes suggestive of colitis. There is also a pancreatic mass with some attenuation of the superior mesenteric artery origin, although all the distal branches appear patent. There is poor visualization of the superior mesenteric vein and splenic vein, which probably represent intra-abdominal thrombosis. IMPRESSION: 1. Ischemic colitis and diarrhea. 2. Anemia secondary to acute blood loss. 3. Pancreatic cancer. 4. Sepsis of unclear etiology. 5. Leukopenia. 6. Moderate protein-calorie malnutrition. PLAN: 1. The patient has received IV fluids 30 mL/kg. She also received dose of antibiotics and is awaiting culture results. 2. Packed red blood cells are planned for today. 3. Continue antiemetics. 4. General Surgery and GI consultation. 5. Infectious Disease consult. Jung Zacarias MD LM/MODL /[id number]
[2019-09-22] MEDS: FAMOTIDINE 20 MG TAB PO SCH ×2 (10:56→17:00)
[2019-09-22] MEDS ORDERED: SODIUM CHLORIDE 0.9% 50ML 0 ML ONE (11:21)
[2019-09-22] MEDS ORDERED: SODIUM CHLORIDE 0.9% 250ML 250 ML ONE (11:24)
[2019-09-22] MEDS ORDERED: HYDRALAZINE HCL 20 MG/ML VIAL IV PRN (11:30)
[2019-09-22] MEDS: PANCRELIPASE 6000 ER CAPSULE PO SCH ×2 (11:30→16:30)
[2019-09-22] MEDS ORDERED: ACETAMINOPHEN 325 MG TAB PO PRN (11:30)
--- NOTE | 2019-09-22 11:32 | Consultation ---
DATE OF CONSULTATION: 09/22/2019 CHIEF COMPLAINT: Vomiting, diarrhea. HISTORY OF PRESENT ILLNESS: The patient is an 78-year-old female with known history of pancreatic cancer, who complains of 3-week history of progressive watery diarrhea, nausea, and vomiting with subjective fever and chills. The patient also had some abdominal discomfort in the periumbilical region. Currently, no vomiting. PAST MEDICAL HISTORY: Significant for pancreatic cancer, history of pancreatitis, history of colitis, coronary artery disease, hypertension, hyperlipidemia, and peripheral vascular disease. PAST SURGICAL HISTORY: Positive for coronary artery stent placement and left carotid endarterectomy. ALLERGIES: THE PATIENT HAS ALLERGIC REACTION TO SULFA, PENICILLIN, CIPRO, AND CODEINE. SOCIAL HABITS: No smoking or alcohol use. REVIEW OF SYSTEMS: Denies chest pain or shortness of breath. PHYSICAL EXAMINATION: VITAL SIGNS: Stable, afebrile. GENERAL: She is awake, alert, in mild to moderate discomfort. HEENT: Sclerae are nonicteric. NECK: Supple. LUNGS: Clear. HEART: Regular rate and rhythm. ABDOMEN: Soft with some guarding tenderness in the right paraumbilical region with no rebound. EXTREMITIES: No cyanosis or edema. LABORATORY DATA: White cell count 2.7, hemoglobin of 6.6, and platelet count 191. Creatinine of 0.7. Liver function tests unremarkable. Abdominal CT show wall thickening at hepatic flexure, suggestive of colitis. The mesenteric vessels are patent. Pancreatic mass with cystic lesion consistent with pseudocyst. ASSESSMENT: Abdominal pain, diarrhea, and vomiting. The patient with CT scan finding of colitis and history of pancreatic cancer. PLAN: IV hydration, antibiotics. Workup for colitis from C. difficile. We will follow the patient with you. MD CHRISTINE Thomason/AYANNA /[id number]
[2019-09-22] MEDS ORDERED: TRAMADOL HCL 50 MG TAB PO PRN (12:00)
[2019-09-22] MEDS ORDERED: ACETAMINOPHEN/CODEINE 300MG - 30MG TAB PO PRN (12:00)
[2019-09-22 12:14] LABS: PLATELET ESTIMATE ADEQUATE; PLATELET MORPHOLOGY COMMENT NORMAL; RBC MORPHOLOGY COMMENT ABNORMAL
[2019-09-22 12:15] LABS: HYPOCHROMASIA MODERATE
[2019-09-22 13:11] LABS: CREATINE KINASE MB 0.8 ng/mL (0-5.0)
--- NOTE | 2019-09-22 13:14 | NUR ---
Dr Cierra Gould has been consulted. Dr Martinez has returned call, reviewed information/medications, gives no new orders. Dr Martinez states he will see patient tomorrow.
[2019-09-22] MEDS: CEFEPIME 1GM/NS 0.9% 50 ML 50 ML IV SCH (14:13)
[2019-09-22] MEDS: METRONIDAZOLE 500MG/NS 100ML 100 ML IV SCH ×2 (15:09→22:50)
[2019-09-22] MEDS: MORPHINE SULFATE 2 MG/ML SYR 1ML IV PRN (15:17)
--- NOTE | 2019-09-22 15:18 | NUR ---
GI Consult Briefly, 78 y/o female with pancreatic cancer, on palliative chemotherapy, admitted with fever and diarrhea. Chronic diarrhea, probably related to pancreatic insufficieny. Most recent chemotherapy completed on September 08. Denies bleeding, vomiting. + nausea. Recent Z pack given for sinus infection. PMH: HPI / EMR ROS: No ETOH Allergies: see chart PE: VSS General: Elderly thin female in no distress Abdomen: Soft, mild tenderness. Labs: H/H 6.5 Stool: Negative for C diff CT Scan: Pancreatic cancer with vascular involvement, with thickening of colonic wall Assesment: Unfortunate female with unresectable pancreatic cancer, on palliative chemotherapy, admitted with findings suspicious for acute infectious gastroenter itis, has responded to antibiotics. Plan D/C po vancomycin Cholestyramine Creon
[2019-09-22] MEDS ORDERED: COREG3.125 MG PO (16:53)
[2019-09-22] MEDS ORDERED: ENTRESTO 24 MG1 EACH PO (16:53)
[2019-09-22] MEDS ORDERED: ULTRAM50 MG PO (16:53)
[2019-09-22] MEDS ORDERED: HYDROCODON-ACE1 EA11 PO (16:53)
[2019-09-22] MEDS ORDERED: PROBIOTIC & AC1 EACH PO (16:57)
[2019-09-22] MEDS ORDERED: POTASSIUM CHLO10 ME1 PO (16:57)
[2019-09-22] MEDS ORDERED: DRONABINOL10 MG PO (16:57)
[2019-09-22] MEDS ORDERED: PROTONIX20 MG PO (16:57)
[2019-09-22] MEDS: CHOLESTYRAMINE 4 GM PACKET PO SCH (17:00)
[2019-09-22] MEDS ORDERED: CREON DR 24,001 EACH PO (17:01)
[2019-09-22] MEDS ORDERED: ZOFRAN4 MG PO (17:03)
[2019-09-22] MEDS: FAMOTIDINE 20 MG/2 ML VIAL IV SCH (17:08)
--- NOTE | 2019-09-22 19:17 | Consultation ---
DATE OF CONSULTATION: HISTORY OF PRESENT ILLNESS: Ms. Hull is a very pleasant 78-year-old who was recently-diagnosed with pancreatic cancer. She received radiation chemotherapy. This is the 2nd course of chemotherapy. She has been seen by Oncology in the [facility]. She is coming with abdominal pain, nausea, vomiting, and severe diarrhea for a few days. The patient is currently in the intensive care unit. The patient does have history of pancreatic cancer diagnosed recently, coronary artery disease, status post stent placement, hypertension, hyperlipidemia, history of hysterectomy, history of atherosclerotic disease, status post left carotid endarterectomy, comes in with the above complaints. PAST MEDICAL HISTORY: As above. PAST SURGICAL HISTORY: Above. SOCIAL HISTORY: There is no smoking, drug abuse, or drug abuse. FAMILY HISTORY: Hypertension and diabetes. REVIEW OF SYSTEMS: GENERAL: At the present time, she is just not feeling well. HEENT: There is no headache, visual changes, hearing changes. GI: There is abdominal pain. There is diarrhea. NEURO: She is feeling very weak. PHYSICAL EXAMINATION: GENERAL: Currently alert, oriented. VITAL SIGNS: Stable,afebrile. HEENT: Normocephalic, not icteric. NECK: Supple. No JVD. No lymphadenopathy. No thyromegaly. CHEST: Clear bilateral. HEART: S1 and S2. No S3, S4, or murmur. ABDOMEN: Soft . EXTREMITIES: No edema. SKIN: There is no rash. LABORATORY DATA: White count is 2.76, hemoglobin 6.6, platelets 191. Her COVID-19 is negative. Clostridium diff came back negative. Sodium 139, potassium 4.0, creatinine 0.77. Lactic acid is 2.5. The patient had CAT scan of abdomen and pelvis, which showed wall thickening of the hepatic flexure, inflammatory changes suggestive of colitis. Ischemic versus infection. Please refer to the radiology report. The patient was seen by intensive care as well as surgery, all reviewed. IMPRESSION: Ischemic colitis, sepsis on admission, severe anemia, pancreatic cancer, status post chemo, leukopenia, protein malnutrition. We will put the patient on cefepime and Flagyl. We will start her on oral vancomycin until we get C diff, which came back negative. We will discontinue. Continue with supportive care. Continue with IV fluids and blood transfusion. Further recommendations to follow. MD NAYELY Finn /[id number]
[2019-09-22 19:24] LABS: ANION GAP 11.2 mmol/L (8-16); BLOOD UREA NITROGEN 8 mg/dL (7-26); BUN/CREATININE RATIO 11 (6-25); CALCIUM 7.8 mg/dL (8.4-10.2); CARBON DIOXIDE 17 mmol/L (22-29); CHLORIDE 112 mmol/L (98-107); CREATININE, SERUM 0.74 mg/dL (0.57-1.11); EST GLOMERULAR FILTRATION RATE > 60 ML/MIN (60-); GLUCOSE 118 mg/dL (74-118); POTASSIUM 3.2 mmol/L (3.5-5.1); SODIUM 137 mmol/L (136-145)
[2019-09-22] MEDS ORDERED: POTASSIUM CHLORIDE 20MEQ/100ML 200 ML IV ONE (20:00)
[2019-09-23] VITALS (13 sets, daily range): BP systolic 103–143; BP diastolic 42–88
[2019-09-23] MEDS: SODIUM CHLORIDE 0.9% 1000ML 1,000 ML IV SCH ×2 (00:03→08:01)
[2019-09-23] MEDS: MORPHINE SULFATE 2 MG/ML SYR 1ML IV PRN ×2 (02:28→11:52)
[2019-09-23] MEDS: CEFEPIME 1GM/NS 0.9% 50 ML 50 ML IV SCH (02:30)
[2019-09-23 05:11] LABS: BASOPHILS % 0.5 % (0.0-1.0); HEMATOCRIT 28.4 % (34.2-44.1); HEMOGLOBIN 8.4 g/dL (12.0-16.0); LYMPHOCYTES # (AUTO) 0.6 (1.0-3.2); LYMPHOCYTES % 30.7 % (18.0-39.1); MEAN CORPUSCULAR HEMOGLOBIN 29.6 pg (28-32); MEAN CORPUSCULAR HGB CONC 29.6 g/dL (31-35); MONOCYTES # (AUTO) 0.7 (0.2-0.8); MONOCYTES % 35.2 % (4.4-11.3); NEUTROPHILS # (AUTO) 0.6 (2.1-6.9); NEUTROPHILS % 32.1 % (38.7-80.0); PLATELET COUNT 192 x10e3/uL (140-360); RED BLOOD COUNT 2.84 x10e6/uL (3.6-5.1); RED CELL DISTRIBUTION WIDTH 17.9 % (11.7-14.4)
[2019-09-23 05:30] LABS: ALANINE AMINOTRANSFERASE 17 IU/L (0-55); ALBUMIN 1.9 g/dL (3.5-5.0); ALBUMIN/GLOBULIN RATIO 0.5 (0.8-2.0); ALKALINE PHOSPHATASE 81 IU/L (40-150); BLOOD UREA NITROGEN 8 mg/dL (7-26); BUN/CREATININE RATIO 9 (6-25); CALCIUM 7.9 mg/dL (8.4-10.2); CARBON DIOXIDE 16 mmol/L (22-29); CHLORIDE 118 mmol/L (98-107); CREATININE, SERUM 0.88 mg/dL (0.57-1.11); EST GLOMERULAR FILTRATION RATE > 60 ML/MIN (60-); GLUCOSE 116 mg/dL (74-118); SODIUM 142 mmol/L (136-145)
[2019-09-23 05:49] LABS: CHOL/HDL RATIO 3.5 (3.0-3.6)
[2019-09-23 05:55] LABS: FERRITIN 565.49 ng/mL (4.63-204.00)
[2019-09-23] MEDS: METRONIDAZOLE 500MG/NS 100ML 100 ML IV SCH (06:13)
[2019-09-23 06:54] LABS: CREATINE KINASE 26 IU/L (29-168)
[2019-09-23] MEDS: PANCRELIPASE 6000 ER CAPSULE PO SCH ×2 (08:01→10:44)
[2019-09-23] MEDS: CHOLESTYRAMINE 4 GM PACKET PO SCH (08:01)
[2019-09-23] MEDS: FAMOTIDINE 20 MG/2 ML VIAL IV SCH (08:01)
[2019-09-23 08:02] LABS: CREATINE KINASE MB < 1.00 ng/mL (0-4.3)
--- NOTE | 2019-09-23 09:56 | NUR ---
GI Progress notes Stable, Minimal diarrhea last night, none today. Labs noted. Plan continue current RX OK to transfer out of ICU from gi point of view
--- NOTE | 2019-09-23 10:05 | Progress Note ---
DATE: SUBJECTIVE: The patient was seen by GI and Infectious Disease yesterday. She has less abdominal pain, but still has some diarrhea. She has no fever. She has no nausea or vomiting. PHYSICAL EXAMINATION: VITAL SIGNS: The patient is afebrile. The blood pressure is 125/55 and saturation is 99%. HEENT: Shows no facial swelling or erythema. CARDIAC: Reveals regular rate and rhythm with normal S1 and S2. LUNGS: Auscultation of lungs reveals clear breath sounds bilaterally. There is no wheezing. ABDOMEN: Soft and nontender. There is no rebound or guarding. EXTREMITIES: Shows no leg edema or calf tenderness. There is no cyanosis or clubbing. SKIN: Shows no rashes. NEUROLOGICAL: Shows no focal abnormalities. LABORATORY DATA: CO2 is 16 with a chloride of 118. BUN to creatinine ratio is 8 to 0.88. Sodium is 142. Albumin is 1.9. The white blood cell count is 1.99 and hemoglobin is 8.4. The platelet count is 192. IMPRESSION: 1. Infectious enterocolitis. 2. Anemia secondary to acute blood loss. 3. Pancreatic cancer. 4. Metabolic acidosis secondary to diarrhea. 5. Leukopenia. 6. Moderate protein-calorie malnutrition. PLAN: 1. Continue IV fluids and nutritional supplementation. 2. Continue antibiotics as recommended by ID. 3. Continue antiemetics. 4. Monitor electrolytes and carbon dioxide. Jung Zacarias MD [facility]/KYRAL /[id number]
--- NOTE | 2019-09-23 11:11 | Progress Note ---
DATE: REVIEW OF SYSTEMS: Complained of diarrhea. She had one bowel movement today. Discussed with the nurse, it is brown. No fever, no chills, no nausea, no vomiting. Pain seems to be controlled. MEDICATIONS: Reviewed. From Infectious Disease point of view, the patient is on cefepime and Flagyl. LABORATORY STUDIES: White count 1.99, hemoglobin 8.4, platelet 192. No new BMP from today. Serology: Coronavirus PCR not detected on 09/20. Clostridium diff negative on 09/21. MICROBIOLOGY: Blood culture negative on 09/21/2019. RADIOLOGY STUDIES: No new radiology studies available. PHYSICAL EXAMINATION: GENERAL: Alert and oriented, no acute distress. CV: S1 and S2. CHEST: Equal expansion. Clear to auscultation. No acute distress. ABDOMEN: Soft, nontender. Bowel sounds positive. HEENT: Moist. No pallor. No JVD. EXTREMITIES: Moves all. No edema. ASSESSMENT AND PLAN: 1. Ischemic colitis. 2. Sepsis on admission. 3. Severe anemia. 4. Pancreatic cancer. 5. Leukocytopenia. 6. Protein calorie malnutrition. 7. Debility. 8. Clostridium difficile was negative, continue with cefepime and Flagyl, the patient tolerates liquids, has bowel movement which is loose but Clostridium difficile negative. She only had one bowel movement today. 9. White count is slightly less than what it was yesterday, it is 1.99 from 2.76. Anemia seems to be improved. Hemoglobin was 8.4. The patient is cleared to be transferred to [facility] from other specialties. Overall, guarded prognosis. Continue with cefepime and Flagyl. Further management of this patient is based on daily findings on laboratory and physical examination. Discussed with Dr. Arciniega in detail. MD ABHISHEK Fnin/AYANNA /[id number]
[2019-09-23] MEDS ORDERED: DICYCLOMINE HCL10 MG PO (11:57)
[2019-09-23] MEDS ORDERED: CIPRO500 MG PO (11:57)
[2019-09-23] MEDS ORDERED: FLAGYL500 MG PO (11:57)
[2019-09-23] MEDS ORDERED: CEFTIN PO (12:37)
[2019-09-23 12:41] LABS: HYPOCHROMASIA MODERATE; PLATELET ESTIMATE ADEQUATE; PLATELET MORPHOLOGY COMMENT NORMAL; RBC MORPHOLOGY COMMENT ABNORMAL
--- NOTE | 2019-09-23 18:52 | Discharge Summary ---
ADMISSION DIAGNOSES: 1. Colitis with severe sepsis, present on admission. 2. Hypertension. 3. Hyperlipidemia. 4. History of pancreatic cancer. 5. Anemia of chronic disease, likely due to pancreatic cancer. 6. Chronic systolic congestive heart failure. DISCHARGE DIAGNOSES: 1. Colitis with severe sepsis, present on admission. 2. Hypertension. 3. Hyperlipidemia. 4. History of pancreatic cancer. 5. Anemia of chronic disease, likely due to pancreatic cancer. 6. Chronic systolic congestive heart failure. 7. Rule out acute coronary syndrome .. HISTORY: Pancreatic cancer with chemo and radiation, [place]/CAD, hypertension, hyperlipidemia, chronic systolic congestive heart failure. SURGICAL HISTORY: PCI x1, hysterectomy, left carotid endarterectomy. FAMILY HISTORY: The patient's sister has diabetes. Two of the patient's cousins have cancer. The patient's grandmother had a stroke. SOCIAL HISTORY: Occasional alcohol use. HOSPITAL COURSE: An 78-year-old female, admits to complains of constant sharp and dull pelvic pain with associated nausea and diarrhea. At one point, her diarrhea was every 20 minutes with fecal incontinence. A couple of days ago, her temp was 102.1. She has pancreatic cancer and restarted chemo about 6 to 12 weeks ago. Her last chemo was 2 weeks ago. On admission, the patient's lactic was 3.4. She was hypotensive and heart rate was 100. CT of the abdomen and pelvis showed wall thickening at the hepatic flexure with inflammatory changes suggestive of colitis. Pancreatic body hypotensive mass with circumferential involvement of the celiac artery and SMA proximally. Cystic lesion on the distal pancreas. Blood cultures were negative. C. diff was negative. Coronavirus was negative. WBC was 2.76 on admission. Her hemoglobin was 6.6, so 1 unit of PRBCs was ordered. The patient was started on IV antibiotics. ID, GI, and Surgery were consulted. The following day, the patient and daughter are very adamant about going home. They attempted transfer, but there was no reason for transfers, so they are insisting on going home with p.o. antibiotics. After speaking with Infectious Disease, he agrees that it is okay she will discharge with Flagyl and Ceftin as she is allergic to Cipro. She was given a new prescription for dicyclomine. She already has an appointment with her oncologist tomorrow, which she is very eager to make. The patient and daughter understand discharge instructions and agreed to plan. Vital signs are stable. The patient is afebrile. Dictated by Alee De Santiago, JOSHUA MD JAME Padron/MODL /[id number]
== END 2019-09-23 13:22 | disposition home or self-care (01) | DRG 871 ==
LOC: FSED 19:10 → ERHOLD 20:26 → ICU 09-22 00:40
PROVIDERS: ADMIT Internal Medicine; ATTEND Internal Medicine
PROC: 30233N1 Transfusion of Nonautologous Red Blood Cells into Peripheral Vein, Percutaneous Approach (ICD-10-PCS; principal; 2019-09-22)
DX: A41.9 Sepsis, unspecified organism (principal); R65.21 Severe sepsis with septic shock; I50.22 Chronic systolic (congestive) heart failure; Z68.1 Body mass index [BMI] 19.9 or less, adult; N39.0 Urinary tract infection, site not specified; C25.9 Malignant neoplasm of pancreas, unspecified; K55.9 Vascular disorder of intestine, unspecified; E44.0 Moderate protein-calorie malnutrition; E87.2 Acidosis; I25.2 Old myocardial infarction; E78.5 Hyperlipidemia, unspecified; Z83.3 Family history of diabetes mellitus; Z80.9 Family history of malignant neoplasm, unspecified; Z82.3 Family history of stroke; Z88.1 Allergy status to other antibiotic agents; Z88.5 Allergy status to narcotic agent; Z88.0 Allergy status to penicillin; Z88.2 Allergy status to sulfonamides; I11.0 Hypertensive heart disease with heart failure; I25.10 Atherosclerotic heart disease of native coronary artery without angina pectoris; I73.9 Peripheral vascular disease, unspecified; Z95.5 Presence of coronary angioplasty implant and graft; D72.819 Decreased white blood cell count, unspecified; R53.81 Other malaise; D63.0 Anemia in neoplastic disease
CPT/HCPCS: 36415; 74177; 80048; 80053; 80061; 80076; 81003; 82550; 82553; 82607; 82728; 82746; 82948; 83540; 83605; 84466; 84484; 85025; 85610; 86850; 86900; 86920; 87040; 87400; 87493; 87635; 93306; 96365; 96374; 96376; 99284; J0692; J2270; J2405; J3370; J3480; J7030; J7050; P9016; Q9967

== ENCOUNTER 2020-05-16 11:50 | Emergency (ER) | payer MEDICARE, BC ==
[~2020-05-16] VITALS: Ht 154.9 cm; Wt 40.8 kg
[~2020-05-16 11:50] MED LIST changes: +CEFTIN PO; +CIPRO500 MG PO; +COREG3.125 MG PO; +CREON DR 24,001 EACH PO; +DICYCLOMINE HCL10 MG PO; +DRONABINOL10 MG PO; +ENTRESTO 24 MG1 EACH PO; +FLAGYL500 MG PO; +HYDROCODON-ACE1 EA11 PO; +POTASSIUM CHLO10 ME1 PO; +PROBIOTIC & AC1 EACH PO; +PROTONIX20 MG PO; +ULTRAM50 MG PO; +ZOFRAN4 MG PO
[2020-05-16] MEDS ORDERED: SODIUM CHLORIDE 0.9% 1000ML 1,000 ML IV STA (12:30)
[2020-05-16] MEDS ORDERED: ONDANSETRON HCL INJ 2MG/ML 2ML 2 MG/ML VIAL IV STA ×2 (12:47→13:07)
[2020-05-16] MEDS ORDERED: HYDROCODONE/APAP 10MG-325MG TAB PO STA (13:07)
[2020-05-16] MEDS ORDERED: SODIUM CHLORIDE 0.9% 1000ML 1,000 ML ONE (13:08)
[2020-05-16] MEDS ORDERED: ONDANSETRON HCL INJ 2MG/ML 2ML 2 MG/ML VIAL ONE ×2 (13:08→13:44)
[2020-05-16] MEDS ORDERED: HYDROCODONE/APAP 5MG-325MG TAB ONE (13:44)
== END 2020-05-16 14:53 | disposition home or self-care (01) ==
LOC: FSED 12:18
DX: R62.7 Adult failure to thrive (principal); N39.0 Urinary tract infection, site not specified; R11.0 Nausea; R53.1 Weakness; I10 Essential (primary) hypertension; E78.5 Hyperlipidemia, unspecified; I25.10 Atherosclerotic heart disease of native coronary artery without angina pectoris; Z85.07 Personal history of malignant neoplasm of pancreas; I25.2 Old myocardial infarction; Z95.5 Presence of coronary angioplasty implant and graft
CPT/HCPCS: 80053; 82553; 84484; 85025; 96374; 96376; 99284; J2405; J7030